=== PATIENT | male | born 1950 | race Caucasian/White ===

== ENCOUNTER 2018-12-10 15:39 | Inpatient (IN) | payer MEDICARE ==
[~2018-12-10] VITALS: Ht 175.3 cm; Wt 87.1 kg
[2018-12-10] VITALS (7 sets, daily range): BP systolic 95–142; BP diastolic 69–93
--- NOTE | 2018-12-10 15:39 | NUR ---
BIBA FROM [facility] FOR REFERAL FROM DR. MARK FOR ELEVATED BUN 85 AND CREATININE 5.04. PT NONVERBAL TRACHE/VENT PT PER EMS REPORT AND REPORT FROM AARON AT [facility]. RT AT BEDSIDE AND WAS PUT IN VENTILATOR. PT PERRL, BRISK 2MM. BLADDER DISTENTION NOTED. PT PLACED ON FULL STOCK SORTER. HOB UP. BED SIDE RAILS UP X2. ON BED LOW POSITION, LOCKED. ER TO EVALUATE PT. HX: HTN, CEREBELLAR AND BRAINSTEM CVA, SZ, CHRONIC RESPIRATORY FAILURE, TRACHE/VENT, PERCUTANEOUS GASTROSTOMY TUBE.
--- NOTE | 2018-12-10 15:39 | NUR ---
Patient BIBA ACLS, transferred to bed 8. Dr. Klein and RN evaluating patient at bedside.
--- NOTE | 2018-12-10 15:40 | NUR ---
IV INITIATED TO RAC WITH 20G, INTACT AND PATENT. OBTAINED BLOOD DRAW AND GIVEN TO LAB.
--- NOTE | 2018-12-10 15:40 | NUR ---
DR MOORE AT BEDSIDE FOR PT EVALUATION
--- NOTE | 2018-12-10 15:43 | NUR ---
PT BROUGHT IN EMS PLACED ON CARESCAPE ON DOCUMENTED SETTINGS, ALARMS ARE ON AND AUDIBLE, PTS TRACH IS SECURE PORTEX 8 ,BS CAIT , PT IN HF QUIET, BMV HOB VENT PLUGGED INTO RED OUTLET Addendum: 12/10/18 at 1606 by Patt Gallegos RT TRUCK LOADER AND UNLOADER COULD BE OBTAINED AT THIS TIME
[2018-12-10] MEDS ORDERED: KEP500L GT (15:57)
[2018-12-10] MEDS ORDERED: ONDA4TAB PO (15:58)
[2018-12-10] MEDS ORDERED: TIM.5OS OP (15:59)
[2018-12-10] MEDS ORDERED: LISI2.5T5 GT (16:00)
[2018-12-10] MEDS ORDERED: [UNRECOGNIZED DRUG - CODE] GT (16:02)
[2018-12-10] MEDS ORDERED: LORA2SOL69 IM (16:04)
--- NOTE | 2018-12-10 16:10 | NUR ---
LINK CATHETER INSERTED ORDERED USING STERILE TECHNIQUE. YELLOW URINE OUTPUT OF 1400 ML NOTED VIA GRAVITY. URINE SPECIMEN OBTAINED ORDERED. DR MOORE MADE AWARE.
[2018-12-10] MEDS ORDERED: DOXA2TAB1 GT (16:15)
[2018-12-10] MEDS ORDERED: ATOR20TA GT (16:15)
[2018-12-10] MEDS ORDERED: BISA-213 RC (16:15)
[2018-12-10] MEDS ORDERED: LANS15EC28 GT (16:15)
[2018-12-10] MEDS ORDERED: LACT-2 GT (16:15)
[2018-12-10] MEDS ORDERED: ASPI-1677 GT (16:15)
[2018-12-10] MEDS ORDERED: CYAN100T21 GT (16:15)
[2018-12-10] MEDS ORDERED: SENN-46 GT (16:15)
[2018-12-10 16:32] LABS: HEMATOCRIT 24.9 % (36-52); HEMOGLOBIN 8.3 g/dL (12.0-18.0); MEAN CORPUSCULAR HEMOGLOBIN 30 pg (27-31); MEAN CORPUSCULAR HGB CONC 33 g/dL (33-37); MEAN CORPUSCULAR VOLUME 89.5 fL (80-94); PLATELET COUNT (AUTO) 267 K/uL (140-450); RED BLOOD CELL COUNT(AUTO) 2.79 MIL/uL (4.20-6.10); RED CELL DISTRIBUTION WIDTH 13.8 % (11.6-13.7)
[2018-12-10 16:39] LABS: APPEARANCE,URINE CLEAR (CLEAR); BILIRUBIN,URINE NEGATIVE (NEGATIVE); BLOOD, URINE NEGATIVE (NEGATIVE); COLOR,URINE YELLOW (YELLOW); LEUKOCYTE ESTERASE ,URINE NEGATIVE (NEGATIVE); NITRITE, URINE NEGATIVE (NEGATIVE); PH,URINE 5.5 (5.0-9.0); UGLUCOSE NEGATIVE (NEGATIVE)
[2018-12-10 17:02] LABS: ALBUMIN 2.4 g/dL (3.4-5.0); CARBON DIOXIDE 26.5 mmol/L (21-32); POTASSIUM 5.5 mmol/L (3.5-5.1); TOTAL BILIRUBIN 0.4 mg/dL (0.0-1.0)
[2018-12-10 17:06] LABS: CREATININE 5.6 mg/dL (0.7-1.3)
[2018-12-10 17:10] LABS: LYMPHOCYTES % (MANUAL) 8 % (20-46)
[2018-12-10 17:11] LABS: BASOPHILS % (MANUAL) 0 % (0-2); EOSINOPHILS % (MANUAL) 8 % (0-4); MONOCYTES % (MANUAL) 6 % (5-12)
[2018-12-10] MEDS ORDERED: NACL 0.9% 1,000 ML IV ONE (17:15)
[2018-12-10] MEDS ORDERED: SODIUM BICARBONATE 8.4% PFS 50 MEQ/50 ML SYR IVP ONE (17:15)
[2018-12-10] MEDS ORDERED: INSULIN REGULAR, HUMAN 100 UNIT/ML VIAL SUBQ ONE (17:15)
[2018-12-10] MEDS ORDERED: DEXTROSE 50% 50 ML SYR IVP ONE (17:15)
[2018-12-10 17:21] LABS: PROTHROMBIN TIME 10.5 secs (10.8-13.4)
[2018-12-10] MEDS ORDERED: ONDANSETRON 4 MG/2 ML VIAL IM/IVP PRN (18:05)
[2018-12-10] MEDS ORDERED: DOCUSATE SODIUM 100 MG GELCAP PO PRN (18:05)
[2018-12-10] MEDS ORDERED: FAMOTIDINE 20 MG/2 ML VIAL IV PRN (18:05)
[2018-12-10] MEDS ORDERED: ACETAMINOPHEN 325 MG TAB PO PRN (18:05)
--- NOTE | 2018-12-10 18:10 | NUR ---
PT TAKEN TO CT VIA [place] WITH RT, RN AND FOAM CASTER
--- NOTE | 2018-12-10 18:25 | NUR ---
PT TAKEN BACK TO ROOM VIA [facility] WITH RN, RT AND CHILD DAY CARE PROVIDER
[2018-12-10] MEDS ORDERED: PATIROMER CALCIUM SORBITEX 8.4 GM PKT PO SCH (18:30)
[2018-12-10 18:41] LABS: ALBUMIN 2.4 g/dL (3.4-5.0); CHOL/HDL RATIO 2.7 (1-4.5); FREE T4 (FREE THYROXINE) 0.67 ng/dL (0.76-1.46); MAGNESIUM 3.3 mg/dL (1.8-2.4); PHOSPHORUS 7.6 mg/dL (2.5-4.9); THYROID STIMULATING HORMONE 0.83 uIU/mL (0.34-3.74)
--- NOTE | 2018-12-10 18:50 | NUR ---
Patient will be admitted to care of DR LONG. Admited to ICU. Will go to room 1. Belongings list completed. Report to FLACO LUJAN.
--- NOTE | 2018-12-10 18:54 | NUR ---
RECEIVED BEDSIDE REPORT FROM EDUCATION ASSOCIATE, ZAINAB, FOR CONTINUITY OF CARE. PATIENT DOES NOT OPEN EYES SPONTANEOUSLY, DOES NOT MAKE NEEDS KNOWN OR FOLLOW COMMANDS. PATIENT SKIN IS INTACT, WARM, DRY. HE HAS PERIPHERAL IV SITE TO RAC, 20 GAUGE, ASYMPTOMATIC AND PATENT. PATIENT IS TRACH TO VENT, BREATHING EVEN AND UNLABORED. PATIENT IS SR ON MONITOR, FLACC 0. HE HAS GTUBE IN PLACE. LINK CATHETER IN PLACE TO CLEAR YELLOW URINE. HOB IS 30 DEGREES ELEVATED, SIDE RAILS UP 3X, BED LOCKED IN LOW POSITION. NO SIGNS OF DISTRESS NOTED.
--- NOTE | 2018-12-10 19:10 | NUR ---
REPORT GIVEN BY DAY NURSE AT BEDSIDE. PT FAMILY PRESENT. AAOX0. WITHDRAWS TO LIGHT PAIN. TRACH TO VENT. FI02 28 VT 425-RR 12- FLOW 40 PEEP 5. AFEBRILE 97.0. VSS. RIGHT AC 20 GAUGE PATENT AND NO S/S OF INFECTION NOTED. GTUBE INTACT WITH NO LEAKING. GTUBE DRESSING INTACT. NPO EXCEPT MEDS. LUNG SOUNDS CLEAR BILATERALLY WITH SYMMETRICAL RESPIRATIONS THAT ARE UNLABORED. BOWEL SOUNDS PRESENT IN ALL [address] QUADRANTS. LINK CATHETER IN PLACE WITH LIGHT YELLOW COLORED URINE NOTED IN TUBING WITH SEDIMENT NOTED. PATIENT SKIN INTACT. SEIZURE SIDE RAILS IN PLACE. CALL LIGHT BY PATIENT. SAFETY PRECAUTIONS IN PLACE. BED LOCKED IN LOWEST POSITION. HOB 30 DEGREES. NO DISTRESS NOTED AT THIS TIME. WILL CONTINUE TO MONITOR.
--- NOTE | 2018-12-10 19:18 | NUR ---
ENDORSED CONTINUITY OF CARE TO QUANTITATIVE ASSOCIATE RNBRIAN. NO SIGNS OF DISTRESS NOTED.
--- NOTE | 2018-12-10 20:10 | NUR ---
RECEIVED PATIENT TRACH PORTEX 8 TO MECHANICAL VENTILATOR AT SETTINGS: AC/VC 425, 12, +5, 28%. VENT CHECK DONE. VENT ALARMS ON AND AUDIBLE. VENT PLUGGED INTO RED OUTLET. VENT WHEELS LOCKED. AMBU BAG AT [facility]. AIRWAY SECURE AND PATENT. SUCTIONED SMALL AMOUNT OF THICK, YELLOW SECRETIONS. NO ACUTE RESPIRATORY DISTRESS NOTED AT THIS TIME. WILL CONTINUE TO MONITOR.
[2018-12-10] MEDS ORDERED: LORazepam 2 MG/ML VIAL IVP PRN (20:45)
[2018-12-10] MEDS ORDERED: ACETAMINOPHEN 160 MG/5 ML UDC GT PRN (20:50)
[2018-12-10] MEDS ORDERED: BISACODYL 10 MG SUPP RC PRN (20:50)
[2018-12-10] MEDS ORDERED: PATIROMER CALCIUM SORBITEX 8.4 GM PKT GT SCH (21:00)
[2018-12-10] MEDS ORDERED: DOXAZOSIN 2 MG TAB PO SCH (21:00)
[2018-12-10] MEDS: PIPERACILLIN/TAZOBACTAM 2.25 GM in DEXTROSE 5% 50 ML IV SCH (21:00)
[2018-12-10] MEDS ORDERED: TAMSULOSIN 0.4 MG CAP GT SCH (21:00)
[2018-12-10] MEDS ORDERED: FLEPED RC (21:05)
[2018-12-10] MEDS ORDERED: DEXT1DRO5 OP (21:05)
--- NOTE | 2018-12-10 21:15 | NUR ---
LABS DRAWN AT THIS TIME. NO DISTRESS NOTED. VSS. WILL CONTINUE TO MONITOR
[2018-12-10] MEDS: LACTOBACILLUS RHAMNOSUS GG 1 EACH CAP GT SCH (21:19)
[2018-12-10] MEDS: levETIRAcetam 100 MG/ML ORASYR GT SCH (21:20)
[2018-12-10] MEDS: SENNA 8.6 MG TAB GT SCH (21:23)
[2018-12-10] MEDS ORDERED: ALBUTEROL SULFATE/IPRATROPIU 3 ML SOL IH PRN (21:25)
--- NOTE | 2018-12-10 21:30 | NUR ---
RT PRESENT AT THIS TIME. NO DISTRESS NOTED.
[2018-12-10] MEDS ORDERED: PIPERACILLIN/TAZOBACTAM 2.25 GM VIAL IV ONE (21:39)
[2018-12-10 21:40] LABS: ANION GAP 13.2 (8-16); CARBON DIOXIDE 29.6 mmol/L (21-32); POTASSIUM 4.8 mmol/L (3.5-5.1)
[2018-12-10 21:42] LABS: CREATININE 4.6 mg/dL (0.7-1.3)
--- NOTE | 2018-12-10 21:42 | NUR ---
VENT CHECK DONE, ALARMS ON AND AUDIBLE. FAMILY VISITING AT BEDSIDE. NO ACUTE RESPIRATORY DISTRESS NOTED AT THIS TIME. WILL CONTINUE TO MONITOR.
--- NOTE | 2018-12-10 21:46 | NUR ---
CALLED HOUSE SUP. TO NOTIFY THAT WE DO NOT HAVE MEDICATION PRESENT. DR. ANGEL CALLED STATES " OK TO WAIT UNTIL THE MORNING"
--- NOTE | 2018-12-10 23:18 | NUR ---
VENT CHECK DONE. PATIENT IN NO ACUTE DISTRESS AT THIS TIME. WILL CONTINUE TO MONITOR.
[2018-12-10] MEDS: NACL 0.9% 1,000 ML IV SCH (23:20)
[2018-12-11] VITALS (10 sets, daily range): BP systolic 92–134; BP diastolic 57–83
--- NOTE | 2018-12-11 01:51 | NUR ---
CALLED [facility] TO VERIFY PNA/FLU VACCINE; NO RECORD SHOWN HE RECEIVED VACCINATIONS.
--- NOTE | 2018-12-11 02:14 | NUR ---
PT LYING IN BED. NO DISTRESS NOTED. VSS. RESPIRATIONS NORMAL AND UNLABORED. WILL CONTINUE TO MONITOR.
--- NOTE | 2018-12-11 03:33 | NUR ---
VENT CHECK DONE, ALARMS ON AND AUDIBLE. NO DISTRESS NOTED AT THIS TIME. WILL CONTINUE TO MONITOR.
[2018-12-11] MEDS ORDERED: PIPERACILLIN/TAZOBACTAM 2.25 GM VIAL IV ONE (04:01)
--- NOTE | 2018-12-11 05:20 | NUR ---
TRANSPORTED PT WITH RN TO CT SCAN AND BACK TO ICU WITHOUT INCIDENT. BAGGED WITH 100% OXYGEN VIA TRACH.
--- NOTE | 2018-12-11 05:51 | NUR ---
VENT CHECK DONE. VENT ALARMS ON AND AUDIBLE. AMBU BAG AT HOB. SUCTIONED MODERATE AMOUNT OF SECRETIONS. ORALLY SUCTIONED BLOODY SECRETIONS. ORAL AIRWAY PLACED. TRACH CARE DONE WITHOUT INCIDENT. NO ACUTE RESPIRATORY DISTRESS NOTED AT THIS TIME. WILL CONTINUE TO MONITOR.
[2018-12-11] MEDS: PIPERACILLIN/TAZOBACTAM 2.25 GM in DEXTROSE 5% 50 ML IV SCH ×3 (05:55→20:16)
[2018-12-11] MEDS ORDERED: ALBUTEROL SULFATE/IPRATROPIU 3 ML SOL IH SCH (06:00)
--- NOTE | 2018-12-11 06:14 | NUR ---
REC'D PT ON CARESCAPE VENT SETTINGS AC12 VT 425 PEEP 5 FIO2 28% ALARMS ON AND AUDIBLE AND VENT IS PLUGGED INTO RED OUTLET AMBU BAG AT HOB, I\L TX GIVEN WITH DUONEB 3ML WITH NO ADVERSE REACTION POST TX B\S ARE RHONCHI BILATERALLY, SXN PT SMALL AMT OF YELLOW SECRETIONS, PT IS TRACH WITH PORTEX 8 AND SKIN INTEGRITY IS INTACT PT IS SLEEPING WITH NO SIGNS OF DISTRESS NOTED, AT 0710 PT MOVED FROM ICU ONE TO ROOM 124B BAGGED WITH 100% FIO2 AND PLACED BACK ON VENT WITH SAME SETTINGS
[2018-12-11 06:26] LABS: BASOPHILS % (AUTO) 0.7 % (0.0-2.0); EOSINOPHILS # (AUTO) 0.8 K/uL (0-0.4); EOSINOPHILS % (AUTO) 11.2 % (0.0-4.0); HEMATOCRIT 23.1 % (36-52); LYMPHOCYTES % (AUTO) 13.6 % (20.5-51.1); MEAN CORPUSCULAR HEMOGLOBIN 30 pg (27-31); MEAN CORPUSCULAR HGB CONC 34 g/dL (33-37); MONOCYTES # (AUTO) 0.7 K/uL (0.8-1.0); MONOCYTES % (AUTO) 9.9 % (1.7-9.3); NEUTROPHILS # (AUTO) 4.8 K/uL (1.8-7.7); NEUTROPHILS % (AUTO) 64.6 % (42.2-75.2); PLATELET COUNT (AUTO) 242 K/uL (140-450); RED BLOOD CELL COUNT(AUTO) 2.57 MIL/uL (4.20-6.10); RED CELL DISTRIBUTION WIDTH 13.7 % (11.6-13.7); WHITE BLOOD COUNT (AUTO) 7.5 K/uL (4.8-10.8)
--- NOTE | 2018-12-11 07:15 | NUR ---
RECEIVED REPORT FROM ICU NURSE BRIAN AT BEDSIDE, PT IS AAOX0. WITHDRAWS TO LIGHT PAIN. TRACH TO VENT. FIO2 28%, VT 425, RR 12, PEEP 5. ACCORDING TO BRIAN, PT BIT HIS TONGUE LAST NIGHT. PT HAS AIRWAY ADJUNCT IN MOUTH TO PREVENT BITING. MINIMAL BLOOD NOTED FROM PT'S SALIVA DROOLING. AFEBRILE 99.3. RIGHT AC 20 GAUGE RUNNING NS AT 100ML/HR, INTACT AND ASYMPTOMATIC. G TUBE SITE CLEAN, DRESSING IN PLACE. BMX1, BROWN LIQ STOOL. NPO EXCEPT MEDS. LUNG SOUNDS RHONCHI INSPIRATORY. BOWEL SOUNDS ACTIVE IN ALL 4 QUADRANTS. LINK CATHETER IN PLACE WITH LIGHT YELLOW URINE WITH SEDIMENTS. SKIN INTACT. SEIZURE PRECAUTIONS IN PLACE. CALL LIGHT WITHIN REACH. SAFETY PRECAUTIONS IN PLACE. BED LOCKED IN LOWEST POSITION. HOB 30 DEGREES. CONTINUE TO MONITOR. Addendum: 12/11/18 at 1832 by Sebastian Chisholm RN URINE IS YELLOW AND PINK TINGED. PT HAS ENLARGED PROSTATE.
[2018-12-11 07:43] LABS: HEMOGLOBIN 7.7 g/dL (12.0-18.0)
--- NOTE | 2018-12-11 07:45 | NUR ---
ORAL SUCTION DONE, MINIMAL BLOODY SALIVA NOTED. ORAL CARE DONE.
[2018-12-11] MEDS: levETIRAcetam 100 MG/ML ORASYR GT SCH ×2 (08:35→20:23)
[2018-12-11] MEDS: LACTOBACILLUS RHAMNOSUS GG 1 EACH CAP GT SCH ×2 (08:35→20:24)
--- NOTE | 2018-12-11 08:39 | NUR ---
PATIENT HAS BEEN SCREENED AND CATEGORIZED HIGH NUTRITION RISK. PATIENT WILL BE SEEN WITHIN 1-2 DAYS OF ADMISSION. 12/11/18-12/12/[address]
--- NOTE | 2018-12-11 09:00 | NUR ---
G TUBE RESIDUAL 0ML, ADMINISTERED SCHEDULED MEDS.
--- NOTE | 2018-12-11 09:15 | NUR ---
STARTED G TUBE FEEDING AT 10ML/HR, GOAL 60, WATER FLUSH 160ML Q6H
[2018-12-11] MEDS: FINASTERIDE 5 MG TAB PO SCH (09:35)
--- NOTE | 2018-12-11 09:45 | NUR ---
SKIN ASSESSMENT DONE FOR LOW MARISELA SCALE AT RISK, PRESSURE INJURY PREVENTION INTERVENTIONS IN PLACE. -TURN AND REPOSITION PATIENT Q 2H -ASSESS AND MONITOR SKIN CONDITION DURING POSITION CHANGE -OFFLOAD BILATERAL HEELS BY PLACING PILLOWS UNDER CALVES AT ALL TIMES, UNLESS OTHERWISE CONTRAINDICATED -PRESSURE REDISTRIBUTION BY PLACING PILLOWS AND OFFLOADING SACRALCOCCYX -KEEP SKIN CLEAN AND DRY AT ALL TIMES.
--- NOTE | 2018-12-11 11:33 | NUR ---
PT COUGHED OUT THE AIRWAY ADJUNCT. MADE RT YOON AWARE. SUCTIONED PT'S MOUTH. PT BREATHING WITHOUT ANY DISTRESS. O2 SAT 97%.
[2018-12-11] MEDS: NACL 0.9% 1,000 ML IV SCH (11:59)
[2018-12-11] MEDS: CALCIUM ACETATE 667 MG TAB PO SCH ×2 (11:59→16:46)
[2018-12-11] MEDS: TIMOLOL OP 0.5% 5 ML BTL OP SCH (12:00)
--- NOTE | 2018-12-11 12:15 | NUR ---
INCREASED FEEDING RATE TO 20ML/HR.
[2018-12-11] MEDS ORDERED: BISACODYL 10 MG SUPP RC PRN (12:28)
[2018-12-11 12:46] LABS: CREATININE 3.4 mg/dL (0.7-1.3)
[2018-12-11 13:07] LABS: ANION GAP 10.7 (8-16); CARBON DIOXIDE 32.1 mmol/L (21-32); POTASSIUM 4.8 mmol/L (3.5-5.1)
[2018-12-11] MEDS: ALBUTEROL SULFATE/IPRATROPIU 3 ML SOL IH SCH ×2 (13:08→19:28)
[2018-12-11] MEDS ORDERED: FAMOTIDINE 20 MG TAB PO SCH (13:11)
[2018-12-11 13:41] LABS: MAGNESIUM 2.8 mg/dL (1.8-2.4); PHOSPHORUS 5.8 mg/dL (2.5-4.9)
--- NOTE | 2018-12-11 14:15 | NUR ---
Air Quality Instrument Specialist Note: Per Brigette from [facility] , they are able to accept patient upon discharge. She stated patient is one of their manager intermediate patients and his health care decision maker is his son Jose A Livingston.
--- NOTE | 2018-12-11 15:28 | NUR ---
12/11/18 RD INITIAL ASSESSMENT COMPLETED PLEASE REFER TO NUTRITION ASSESSMENT UNDER CARE ACTIVITY FOR ESTIMATED NUTRITIONAL NEEDS. 1. DECREASE TUBE FEEDING RATE TO 40 ML/HR X 24 HOURS OF NEPRO W/CARBSTEADY -THIS WILL PROVIDE 960 ML, 1728 KCAL, AND 77.[address] TO FOLLOW-UP 2-3 DAYS, HIGH RISK LORNE CATHERINE, RD
--- NOTE | 2018-12-11 15:31 | NUR ---
G TUBE RESIDUAL 0ML, ADJUSTED FEEDING RATE TO 30ML/HR, H2O FLUSH 150ML Q6H
--- NOTE | 2018-12-11 16:20 | NUR ---
PT'S SON IS HERE VISITING PT.
[2018-12-11] MEDS: ONDANSETRON 4 MG/5 ML ORASYR GT SCH (16:47)
--- NOTE | 2018-12-11 19:20 | NUR ---
RECEIVED BEDSIDE REPORT FROM DAY RN. PT IS AAOX4 ON ROOM AIR. RESPIRATIONS ARE EQUAL AND UNLABORED. PT IS SITTING IN THE EDGE OF THE BED WATCHING TV. C/C ABNORMAL LABS PT RECEIVED BLOOD TRANS MORNING HGB 9.0. PT HAS AV SHUNT ON LEFT ARM SIGN ON THE DOOR WILL PLACE PINK ARM BAND. PT TO HAVE HD TOMORROW WILL OBTAIN CONSENT. IV ON RAC 20G AND R WRIST 22G BOTH SL. PT HAS DRESSING ON L FOOT C/D/I. PT WITH R BKA. PLAN OF CARE DISCUSSED WITH PT. CALL LIGHT IS WITHIN REACH. WILL ROUND FREQUENTLY. Addendum: 12/11/18 at 1942 by Miranda Ontiveros RN WRONG PATIENT.
--- NOTE | 2018-12-11 19:25 | NUR ---
RECEIVED BEDSIDE REPORT FROM DAY RN. PT IS APHASIC AND UNRESPONSIVE PER DAUGHTER BAHMAN HE HAS NOT OPEN HIS EYES TODAY. PT IS TRACH TO VENT. AC/VC FIO2 28%, VT 425, RR 12, FLOW 40 PEEP 5. IV ON RAC 20G INFUSING NS @ 80M/H. PT WITH G TUBE FEEDING: NEPRO AT 40ML/H GOAL H20 FLUSH IS 150ML Q6H. PT HAS PITTING +1 EDEMA BLE AND BUE. SCD ON. LINK CATH DRAINING LIGHT BLOOD TINGED URINE. SKIN IS INTACT. PLAN OF CARE DISCUSSED WITH DAUGHTER. SAFETY MEASURES ARE IN PLACE. WILL ROUND FREQUENTLY.
--- NOTE | 2018-12-11 19:28 | NUR ---
REC'D PT ON CARESCAPE VENT SETTINGS AC12 VT 425 PEEP 5 FIO2 28% ALARMS ON AND AUDIBLE AND VENT IS PLUGGED INTO RED OUTLET AMBU BAG AT HOB, SXN MODERATE AMT OF BROWN/BLOOD TINGED SECRETIONS FROM PT, PT IS TRACH'D WITH PORTEX 8 AND SKIN INTEGRITY IS INTACT PT IS SLEEPING WITH NO SIGNS OF DISTRESS NOTED. WILL CONTINUE TO MONITOR THE PATIENT
[2018-12-11] MEDS: TAMSULOSIN 0.4 MG CAP GT SCH (20:23)
[2018-12-11] MEDS: DOXAZOSIN 2 MG TAB PO SCH (20:24)
[2018-12-11] MEDS: SENNA 8.6 MG TAB GT SCH (20:24)
[2018-12-11] MEDS: POLYVINYL ALCOHOL 1.4% OP 15 ML SOL OP SCH (20:25)
--- NOTE | 2018-12-11 20:25 | NUR ---
VITAL SIGNS ARE WITHIN NORMAL LIMITS. DARYA MEDICATIONS CRUSHED AND GIVEN VIA G TUBE. RESIDUAL <10CC. PT TOLERATED WELL. NO S/S OF DISTRESS. SAFETY MEASURES ARE IN PLACE. HOB ELEVATED. TUBE FEEDING CONTINUED PER ORDERS. DAUGHTER AND SON IN LAW IS AT BEDSIDE. WILL CONTINUE TO ROUND FREQUENTLY.
--- NOTE | 2018-12-11 20:55 | NUR ---
DR ANGEL IN TO ANSWER THE PATIENT'S DAUGHTER QUESTIONS AND CONCERNS. WILL CONTINUE TO MONITOR.
--- NOTE | 2018-12-11 22:00 | NUR ---
ORAL CARE PROVIDED. PT CLEAN AND REPOSITION FOR COMFORT. HOB ELEVATED. PT TOLERATED WELL. ALL NEEDS MET AT THIS TIME. SAFETY MEASURES ARE IN PLACE. WILL CONTINUE TO MONITOR.
--- NOTE | 2018-12-11 23:20 | NUR ---
VITAL SIGNS ARE WITHIN NORMAL LIMITS. ALL SAFETY MEASURES ARE IN PLACE. WILL CONTINUE TO MONITOR.
[2018-12-12] VITALS: BP 114/78
--- NOTE | 2018-12-12 00:45 | NUR ---
SUCTION MODERATE AMOUNT OF BROWN/RED THICK SECRETION. PT TOLERATED WELL. CHEST RISE AND FALL. HOB ELEVATED. SAFETY MEASURES ARE IN PLACE. WILL CONTINUE TO MONITOR.
[2018-12-12 03:20] VITALS: BP 135/88
--- NOTE | 2018-12-12 03:24 | NUR ---
VITAL SIGNS ARE WITHIN NORMAL LIMITS. SUCTION MODERATE AMOUNT OF WHITE SECRETION FROM MOUTH. ALL NEEDS MET AT THIS TIME. WILL CONTINUE TO MONITOR.
[2018-12-12] MEDS: NACL 0.9% 1,000 ML IV SCH (03:58)
[2018-12-12] MEDS: PIPERACILLIN/TAZOBACTAM 2.25 GM in DEXTROSE 5% 50 ML IV SCH ×3 (04:00→20:27)
--- NOTE | 2018-12-12 06:03 | NUR ---
RT IS AT BEDSIDE. PT IN STABLE CONDITION. SAFETY MEASURES ARE IN PLACE. WILL CONTINUE TO MONITOR.
[2018-12-12 06:37] LABS: ANION GAP 9.1 (8-16); CARBON DIOXIDE 32.2 mmol/L (21-32); CREATININE 2.6 mg/dL (0.7-1.3); POTASSIUM 4.3 mmol/L (3.5-5.1)
[2018-12-12 06:41] LABS: MAGNESIUM 2.5 mg/dL (1.8-2.4); PHOSPHORUS 4.9 mg/dL (2.5-4.9)
[2018-12-12 06:44] LABS: HEMATOCRIT 21.6 % (36-52); HEMOGLOBIN 7.3 g/dL (12.0-18.0); MEAN CORPUSCULAR HEMOGLOBIN 31 pg (27-31); MEAN CORPUSCULAR HGB CONC 34 g/dL (33-37); MEAN CORPUSCULAR VOLUME 90.7 fL (80-94); PLATELET COUNT (AUTO) 246 K/uL (140-450); RED BLOOD CELL COUNT(AUTO) 2.38 MIL/uL (4.20-6.10); RED CELL DISTRIBUTION WIDTH 13.6 % (11.6-13.7); WHITE BLOOD COUNT (AUTO) 6.7 K/uL (4.8-10.8)
[2018-12-12] MEDS: ALBUTEROL SULFATE/IPRATROPIU 3 ML SOL IH SCH ×3 (07:08→19:31)
--- NOTE | 2018-12-12 07:27 | NUR ---
RECEIVED BEDSIDE REPORT FROM FLACO REHMAN. PT STABLE, SLEEPING, BUT EASILY AROUSABLE. NO SIGNS OF DISTRESS NOTED. PT TRACHE TO VENT, FI02 28%, FLOW AT 35, VT 425, PEEP 5, RR 12. NO REDNESS, SWELLING, OR INFLAMMATION NOTED ON IV SITE. CALL MALLORY WITHIN REACH. BED IN LOWEST POSITION, BED ALARM ON. SAFETY MEASURES IN PLACE. PLAN OF CARE REVIEWED.
--- NOTE | 2018-12-12 07:28 | NUR ---
GAVE BEDSIDE REPORT TO DAY RN. PT ENDORSED IN STABLE CONDITION.
--- NOTE | 2018-12-12 07:35 | NUR ---
CONTINUED TO MONITOR PT ON VENT WITH SETTINGS CHARTED SXN PT WITH MIN TO MOD AMT YELLOW SECS ALSO ORALLY BREATH SOUNDS PRESENT BILAT COARSE TRACH SITE SECURE VENT PLUGGED INTO RED OUTLET WILL CONTINUE TO MONITORE PT ON VENT
[2018-12-12 08:00] VITALS: BP 113/74
[2018-12-12 09:13] LABS: EOSINOPHILS % (MANUAL) 5 % (0-4); LYMPHOCYTES % (MANUAL) 19 % (20-46); MONOCYTES % (MANUAL) 6 % (5-12)
[2018-12-12] MEDS: CALCIUM ACETATE 667 MG TAB PO SCH (09:46)
[2018-12-12] MEDS: LACTOBACILLUS RHAMNOSUS GG 1 EACH CAP GT SCH ×2 (09:46→20:38)
[2018-12-12] MEDS: levETIRAcetam 100 MG/ML ORASYR GT SCH ×2 (09:47→20:39)
[2018-12-12] MEDS: TIMOLOL OP 0.5% 5 ML BTL OP SCH (09:48)
[2018-12-12] MEDS: FAMOTIDINE 20 MG TAB PO SCH (09:48)
[2018-12-12] MEDS: FINASTERIDE 5 MG TAB PO SCH (09:48)
[2018-12-12] MEDS: SODIUM PHOSPHATE 118 ML ENEM RC SCH (09:51)
--- NOTE | 2018-12-12 09:58 | NUR ---
RESIDUAL CHECKED, 30ML. ADMINISTERED ALL SCHEDULED MEDICATIONS, PT TOLERATED WELL. WILL CONTINUE TO MONITOR. FAMILY AT THE BEDSIDE.
--- NOTE | 2018-12-12 11:57 | NUR ---
PT REPOSITIONED, LINENS AND GOWN CHANGED.
[2018-12-12 12:00] VITALS: BP 142/93
--- NOTE | 2018-12-12 13:13 | NUR ---
ADMINISTERED SCHEDULED ZOSYN, PT TOLERATED WELL. NO SIGNS OF DISTRESS NOTED.
--- NOTE | 2018-12-12 14:44 | NUR ---
TUBE FEEDING CHANGED. ORAL CARE PROVIDED TO PATIENT. PT STABLE, NO SIGNS OF DISTRESS NOTED.
[2018-12-12 16:00] VITALS: BP 138/84
--- NOTE | 2018-12-12 16:15 | NUR ---
VITAL SIGNS TAKEN, PT STABLE. NO SIGNS OF DISTRESS NOTED.
--- NOTE | 2018-12-12 17:29 | NUR ---
continued to monitor pt on vent with settings as charted breath sounds present bilat coarse sxn pt with min to mod amt off white secs vent plugged into red outlet
[2018-12-12] MEDS: ONDANSETRON 4 MG/5 ML ORASYR GT SCH (17:42)
[2018-12-12] MEDS: ACETAMINOPHEN 650 MG/20.3 ML UDC GT PRN ×2 (17:43→23:06)
--- NOTE | 2018-12-12 17:47 | NUR ---
TEMP RECHECKED, 100.2. ADMINISTERED SCHEDULED ZOFRAN AND PRN TYLENOL FOR TEMP OF 100.2. PT TOLERATED WELL. FAMILY AT THE BEDSIDE.
--- NOTE | 2018-12-12 18:45 | NUR ---
TEMP RECHECKED, 100.1. WILL CONTINUE TO MONITOR PT.
--- NOTE | 2018-12-12 19:05 | NUR ---
ENDORSED PT TO LFACO VIDAL FOR CONTINUITY OF CARE. PT STABLE.
--- NOTE | 2018-12-12 19:10 | NUR ---
RECEIVED PT SLEEPING, OPEN EYES TO TOUCH, APHASIC, ON TRACH TO VENT WITH FF SETTINGS:FI02-28, TV-425, RATE-12,PEEP-5,FLOW RATE-35,SAT-95%, G-TUBE FEEDING AT 40ML/H, MAINTAIN HOB 30 DEGREE ELEVATED AT ALL TIMES, IVF INFUSING WELL, LINK CATH IN PLACE WITH STRAW COLORED URINE OUTPUT, PT BEDBOUND, WILL REPOSITION Q2H AND OFFLOAD PRESSURE AREAS, FAMILY MEMBERS AT BEDSIDE, QUESTIONS ANSWERED AND UPDATED ON PLAN OF CARE.
[2018-12-12 20:00] VITALS: BP 124/83
--- NOTE | 2018-12-12 20:00 | NUR ---
VITAL SIGNS TAKEN, FEBRILE WITH AXILLARY TEMP OF 102, COOLING MEASURES STARTED, DR ANGEL MADE AWARE OF ELEVATED TEMP AND TYLENOL PRN IS NOT DUE YET, WILL CHECK PT, MONITORED CLOSELY.
[2018-12-12] MEDS: DOXAZOSIN 2 MG TAB PO SCH (20:38)
[2018-12-12] MEDS: POLYVINYL ALCOHOL 1.4% OP 15 ML SOL OP SCH (20:39)
[2018-12-12] MEDS: SENNA 8.6 MG TAB GT SCH (20:39)
[2018-12-12] MEDS: TAMSULOSIN 0.4 MG CAP GT SCH (20:39)
--- NOTE | 2018-12-12 20:40 | NUR ---
10 ML G-TUBE RESIDUAL NOTED, DUE MEDS ADMINISTERED, SUCTION SECRETION PRN, ALL NEEDS ANTICIPATED.
[2018-12-12] MEDS ORDERED: KETOROLAC 15 MG/ML VIAL IVP SCH (21:00)
--- NOTE | 2018-12-12 23:06 | NUR ---
TEMP RECHECKED, 101.8 AXILLARY, TYLENOL 650MG GIVEN VIA G-TUBE, CONTINUE COOLING MEASURES.
[2018-12-13] VITALS: BP 113/78
--- NOTE | 2018-12-13 01:19 | NUR ---
RECHECKED AXILLARY TEMP OF 100.8, NO DISTRESS NOTED, CONTINUE COOLING MEASURES.
[2018-12-13 04:00] VITALS: BP 118/76
--- NOTE | 2018-12-13 04:00 | NUR ---
PT SLEEPING, OPEN EYES TO TOUCH, VITAL SIGNS TAKE, Addendum: 12/13/18 at 0523 by Tariq Pérez RN VITAL SIGNS TAKEN, AXILLARY TEMP-99.8, CONTINUE COOLING MEASURES, CONTINUE TO REPOSITION Q2H AND OFFLOAD PRESSURE AREAS, MONITORED CLOSELY.
[2018-12-13] MEDS: NACL 0.9% 1,000 ML IV SCH (04:54)
[2018-12-13] MEDS: PIPERACILLIN/TAZOBACTAM 2.25 GM in DEXTROSE 5% 50 ML IV SCH ×3 (04:58→21:38)
--- NOTE | 2018-12-13 05:20 | NUR ---
LINK CATHETER CARE DONE, URINE WITH BROWNISH SEDIMENTS, WITH SCROTAL EDEMA NOTED, BM WITH LOOSE GREENISH BLACK STOOL, CLEANED AND REPOSITIONED, MONITORED CLOSELY.
[2018-12-13] MEDS: ACETAMINOPHEN 650 MG/20.3 ML UDC GT PRN (06:26)
--- NOTE | 2018-12-13 06:26 | NUR ---
AXILLARY TEMP OF 100.7, TYLENOL LIQUID GIVEN THRU G-TUBE, COOLING MEASURES CONTINUED, NO DISTRESS NOTED, MONITORED CLOSELY.
[2018-12-13 06:39] LABS: CARBON DIOXIDE 30.4 mmol/L (21-32); CREATININE 2.2 mg/dL (0.7-1.3); POTASSIUM 4.4 mmol/L (3.5-5.1)
[2018-12-13 06:57] LABS: MAGNESIUM 2.2 mg/dL (1.8-2.4); PHOSPHORUS 5.2 mg/dL (2.5-4.9)
[2018-12-13 07:14] LABS: BASOPHILS % (AUTO) 0.6 % (0.0-2.0); EOSINOPHILS # (AUTO) 0.4 K/uL (0-0.4); EOSINOPHILS % (AUTO) 6.9 % (0.0-4.0); LYMPHOCYTES # (AUTO) 1.3 K/uL (2.0-11.5); LYMPHOCYTES % (AUTO) 23.8 % (20.5-51.1); MEAN CORPUSCULAR HEMOGLOBIN 30 pg (27-31); MEAN CORPUSCULAR HGB CONC 33 g/dL (33-37); MONOCYTES # (AUTO) 0.7 K/uL (0.8-1.0); MONOCYTES % (AUTO) 12.1 % (1.7-9.3); NEUTROPHILS # (AUTO) 3.1 K/uL (1.8-7.7); NEUTROPHILS % (AUTO) 56.6 % (42.2-75.2); PLATELET COUNT (AUTO) 230 K/uL (140-450); RED CELL DISTRIBUTION WIDTH 13.5 % (11.6-13.7); WHITE BLOOD COUNT (AUTO) 5.5 K/uL (4.8-10.8)
[2018-12-13] MEDS: ALBUTEROL SULFATE/IPRATROPIU 3 ML SOL IH SCH ×3 (07:15→19:37)
--- NOTE | 2018-12-13 07:17 | NUR ---
RECIVED PT ON VENT WITH SETTINGS CHARTED BREATH SOUNDS PRESENT BILAT DIMINISHED SXN PT WITH MIN TO MOD AMT SECS SXN ORALLY WELL AMBU BAG AT BEDSIDE VENT PLUGGED INTO RED OUTLET WILL CONTINUE TO MONITOR PT ON VENT
--- NOTE | 2018-12-13 07:19 | NUR ---
RECEIVED BEDSIDE REPORT FROM FLACO VIDAL. PT STABLE, SLEEPING, BUT EASILY AROUSABLE. NO SIGNS OF DISTRESS NOTED. PT TRACHE TO VENT, FI02 28%, FLOW AT 35, VT 425, PEEP 5, RR 13. NO REDNESS, SWELLING, OR INFLAMMATION NOTED ON IV SITE. CALL MALLORY WITHIN REACH. BED IN LOWEST POSITION, BED ALARM ON. SAFETY MEASURES IN PLACE. PLAN OF CARE REVIEWED.
--- NOTE | 2018-12-13 07:20 | NUR ---
PT SLEEPING, NO SIGNS OF DISTRESS, REPORT GIVEN TO FLACO RIVERA FOR CONTINUITY OF CARE.
[2018-12-13 08:00] VITALS: BP 123/79
[2018-12-13 08:06] LABS: HEMOGLOBIN 6.9 g/dL (12.0-18.0)
--- NOTE | 2018-12-13 08:10 | NUR ---
MADE DR WOODSON AWARE OF PT'S TEMPERATURE OF 101.1. COOLING MEASURES ARE IN PLACE AND PT WAS ALREADY MEDICATED BY PM RN. DR WOODSON WILL PUT IN NEW ORDERS. WILL CONTINUE TO MONITOR.
[2018-12-13] MEDS: FINASTERIDE 5 MG TAB PO SCH (09:33)
[2018-12-13] MEDS: levETIRAcetam 100 MG/ML ORASYR GT SCH ×2 (09:33→21:36)
[2018-12-13] MEDS: LACTOBACILLUS RHAMNOSUS GG 1 EACH CAP GT SCH (09:34)
[2018-12-13] MEDS: FAMOTIDINE 20 MG TAB PO SCH (09:34)
[2018-12-13] MEDS: TIMOLOL OP 0.5% 5 ML BTL OP SCH (09:35)
--- NOTE | 2018-12-13 09:55 | NUR ---
NO RESIDUAL NOTED FROM G-TUBE. ADMINISTERED ALL SCHEDULED MEDICATIONS, PT TOLERATED WELL. FAMILY AT THE BEDSIDE. RECEIVED CONSENT FROM PT'S SISTER SANDI FOR BLOOD TRANSFUSION. SPOKE WITH PT'S STEP SON FARIBA REGARDING PT'S STATUS AND PLAN OF CARE. TEMP RECHECKED, 99.8. WILL CONTINUE TO MONITOR.
--- NOTE | 2018-12-13 11:36 | NUR ---
PT REPOSITIONED, LINENS AND GOWN CHANGED. PT STABLE.
[2018-12-13 12:00] VITALS: BP 133/86
--- NOTE | 2018-12-13 12:54 | NUR ---
ADMINISTERED SCHEDULED ZOSYN, PT TOLERATED WELL. NO SIGNS OF DISTRESS NOTED.
--- NOTE | 2018-12-13 14:25 | NUR ---
PT REPOSITIONED, CHUCKS CHANGED.
--- NOTE | 2018-12-13 15:21 | NUR ---
12/13/18 RD FOLLOW UP COMPLETED PLEASE REFER TO NUTRITION ASSESSMENT UNDER CARE ACTIVITY FOR ESTIMATED NUTRITIONAL NEEDS. 1. DECREASE FREE WATER FLUSH TO 120 ML Q6H 2. CONTINUE NEPRO W/CARB STEADY AT 40 ML/HR X 24 HOURS. -THIS WILL PROVIDE 960 ML, 1728 KCAL, AND 77.[address] TO FOLLOW-UP 2-3 DAYS, HIGH RISK LORNE CATHERINE, RD
--- NOTE | 2018-12-13 15:58 | NUR ---
Slicer Machine Operator Note: Per Naya from [facility] , they will refer patient to a urologist, Vice President [employer] Lucy sanchez aware.
[2018-12-13 16:00] VITALS: BP 154/92
[2018-12-13] MEDS: ONDANSETRON 4 MG/5 ML ORASYR GT SCH (16:21)
[2018-12-13] MEDS: CALCIUM ACETATE 667 MG TAB PO SCH (16:22)
--- NOTE | 2018-12-13 16:27 | NUR ---
ADMINISTERED SCHEDULED MEDICATIONS, PT TOLERATED WELL. NO SIGNS OF DISTRESS NOTED.
--- NOTE | 2018-12-13 17:30 | NUR ---
CONTINUED TO MONITORPT ON VENT WITH SETTINGS CHARTED BREATH SOUNDS PRESENT BILAT COARSE SXN PT WITH MIN TO MOD AMT OFF WHITE SECS TRACH SITE SECURE AMBU BAG AT BEDSIDE VENT PLUGGED INTO RED OUTLET
--- NOTE | 2018-12-13 17:51 | NUR ---
LATE ENTRY: [id number] AND FOR TRANSPORT [id number] AND CAN USE [facility].
--- NOTE | 2018-12-13 18:11 | NUR ---
PT STABLE. VITAL SIGNS TAKEN FOR PRE- BLOOD TRANSFUSION.
--- NOTE | 2018-12-13 18:26 | NUR ---
BLOOD WAS VERIFIED WITH FLACO LOUIS. BLOOD TRANSFUSION STARTED. PT STABLE. WILL CONTINUE TO MONITOR.
--- NOTE | 2018-12-13 18:41 | NUR ---
VITAL SIGNS TAKEN, PT STABLE. NO SIGNS OF BLOOD TRANSFUSION REACTION NOTED. PT TOLERATED WELL. WILL CONTINUE TO MONITOR.
--- NOTE | 2018-12-13 19:25 | NUR ---
ENDORSED PT TO RN COURTNEY FOR CONTINUITY OF CARE. PT STABLE.
--- NOTE | 2018-12-13 19:30 | NUR ---
RECEIVED FROM AM RN IN BED . SLEEPING. PT. IMMOBILE .WITH BLOOD TRANSFUSION ON GOING. NO NOTED ADVERSE REACTIONS. VITAL SIGNS WITH IN NORMAL LIMITS. LINK CATHETER IN PLACE AND DRAINING WITH SLIGHTLY REDDISH IN COLOR URINE. SON AT BEDSIDE AND NO COMPLAINTS DONE. TRACH TO VENT WITH FI02 AT 28 % . 02 SAT 100 %. GT FEEDING WITH NEPHRO AT 40 ML/H AND WATER AT 150 ML / 6 HOURS. NEEDS WILL BE ANTICIPATED AND WILL BE MET. WILL BE TURNED Q 2H. PILLOW SUPPORT TO PRESSURE AREAS IN PLACE. TELEMETRY MONITORING.
[2018-12-13 20:00] VITALS: BP 134/84
--- NOTE | 2018-12-13 21:27 | NUR ---
BLOOD TRANSFUSION OF 1 UNIT DONE. NO NOTED ADVERSE REACTIONS. NEEDS ANTICIPATED AND WILL BE MET. TOTAL CARE. PT. SUCTIONED TO A CREAMY COLORED MUCUS FROM MOUTH. TURNED Q 2H. TELEMETRY MONITORING.
[2018-12-13] MEDS: TAMSULOSIN 0.4 MG CAP GT SCH (21:37)
[2018-12-13] MEDS: SENNA 8.6 MG TAB GT SCH (21:37)
[2018-12-13] MEDS: DOXAZOSIN 2 MG TAB PO SCH (21:37)
[2018-12-13] MEDS: POLYVINYL ALCOHOL 1.4% OP 15 ML SOL OP SCH (21:39)
--- NOTE | 2018-12-13 23:30 | NUR ---
PT. CHECKED. NO RESTLESSNESS . TRACH TO VENT WITH 02 SAT OF 99%. RESPIRATORY THERAPIST CHECKS PT. FREQUENTLY. NO NOTED RESIDUAL AT THIS TIME. HOB UP 30 DEGREES FOR ASPIRATION PRECAUTIONS. PT. LETHARGIC . FAMILY/SON AND RESIDENT MD AWARE.
[2018-12-14 00:53] VITALS: BP 144/90
[2018-12-14 01:05] VITALS: BP 144/90
--- NOTE | 2018-12-14 01:19 | NUR ---
RESPIRATORY IN HERE TO SUCTION PT. CHECKED BY RT FREQUENTLY. SUCTIONED BY MOUTH AT THIS TIME BY ME RT WITH SLIGHT MUCUS FROM A LITTLE COUGH. KEPT CLEAN AND DRY. TURNED Q2 H WITH PILLOW SUPPORT TO PRESSURE AREAS. NEEDS ANTICIPATED AND WILL BE MET. PT. IMMOBILE. APHASIC .
--- NOTE | 2018-12-14 02:35 | NUR ---
TURNED TO SIDES Q 2H BY DISPATCHER RADIOACTIVE WASTE DISPOSAL AND ME. CALL LIGHT WITH IN REACH. PILLOW SUPPORT TO PRESSURE AREAS. NEEDS ANTICIPATED AND WILL BE MET. TOTAL CARE. RESIDENT MD IN HERE AND SHOWED HIM THAT URINE OF PT. IS STILL THE SAME SINCE I CAM IN FOR CHANGE OF SHIFT. "IT IS OK LONG WE HAVE NO BLOOD THINNER RIGHT NOW . IT WILL RESOLVE EVENTUALLY" RE-CHECKED EMAR AND NO BLOOD THINNER IN IT. SUCTIONED PT. PRN.
[2018-12-14 04:02] VITALS: BP 132/78
[2018-12-14] MEDS: PIPERACILLIN/TAZOBACTAM 2.25 GM in DEXTROSE 5% 50 ML IV SCH ×2 (04:08→12:07)
[2018-12-14] MEDS: NACL 0.9% 1,000 ML IV SCH (04:08)
--- NOTE | 2018-12-14 04:41 | NUR ---
PERSONAL AM HYGIENE RENDERED BY SWIMMING POOL SERVICE TECHNICIAN AND ME. TOTAL CARE. APHASIC. PT. LETHARGIC . TURNED TO SIDES Q 2H WITH PILLOW SUPPORT TO PRESSURE AREAS. HOB UP 30 DEGREES FOR ASPIRATION PRECAUTIONS. BED ALARM ON. TELEMETRY MONITORING. NO RESIDUALS FROM GT FEEDING.
[2018-12-14] MEDS: ALBUTEROL SULFATE/IPRATROPIU 3 ML SOL IH SCH (06:33)
--- NOTE | 2018-12-14 06:33 | NUR ---
REC'D PT ON CARESCAPE VENT SETTINGS AC12 VT 425 PEEP 5 FIO2 30% ALARMS ON AND AUDIBLE AND AMBU BAG AT SIDE OF VENT AND VENT IS PLUGGED INTO RED OUTLET, NO HHN GIVEN PT SLEEPING WITH NO SIGNS OF DISTRESS NOTED AT THIS TIME, B\S ARE CLEAR BILATERALLY SNX PT SMALL AMT OF THICK YELLOW SECRETIONS, PT IS TRACH WITH PORTEX 8 AND SKIN INTEGRITY IS INTACT
[2018-12-14 07:22] LABS: HEMATOCRIT 24.5 % (36-52); MEAN CORPUSCULAR HEMOGLOBIN 30 pg (27-31); MEAN CORPUSCULAR HGB CONC 33 g/dL (33-37); MEAN CORPUSCULAR VOLUME 90.5 fL (80-94); PLATELET COUNT (AUTO) 218 K/uL (140-450); RED CELL DISTRIBUTION WIDTH 13.5 % (11.6-13.7); WHITE BLOOD COUNT (AUTO) 7.1 K/uL (4.8-10.8)
[2018-12-14 07:23] LABS: ANION GAP 8.7 (8-16); CARBON DIOXIDE 31.4 mmol/L (21-32); CREATININE 1.7 mg/dL (0.7-1.3); POTASSIUM 4.1 mmol/L (3.5-5.1)
[2018-12-14 07:28] LABS: MAGNESIUM 1.9 mg/dL (1.8-2.4); PHOSPHORUS 4.3 mg/dL (2.5-4.9)
--- NOTE | 2018-12-14 07:38 | NUR ---
ENDORSED TO THE AM RN FOR CONTINUITY OF CARE. RESIDENT MD RUSSELL SEEN PT. TOTAL CARE. NEEDS ANTICIPATED AND MET. NO N/V THIS SHIFT.
--- NOTE | 2018-12-14 07:39 | NUR ---
REPORT RECEIVED FROM MATH PROFESSOR NURSE, POC REVIEWED, PT RESTING QUIETLY, RESP EVEN UNLABORED, TRACH TO VENT AT 28% FIOS, PT ON CARDIAC/PULSE OX MONITOR, GT FEEDING AT 40ML/HR, LINK CATH DRAINING WELL, IVF INFUSING, SITE WNL, ALL MONITORS FUNCTIONING, SAFETY MEASURES IN PLACE, NO IMMEDIATE NEEDS AT THIS TIME, WILL CONTINUE TO MONITOR
--- NOTE | 2018-12-14 07:55 | NUR ---
DR RUSSELL AT BEDSIDE.
[2018-12-14 08:00] VITALS: BP_SYST 143; BP_SYST 147; BP_DIAS 88; BP_DIAS 94
[2018-12-14] MEDS: levETIRAcetam 100 MG/ML ORASYR GT SCH (08:22)
[2018-12-14] MEDS: FINASTERIDE 5 MG TAB PO SCH (08:22)
[2018-12-14] MEDS: FAMOTIDINE 20 MG TAB PO SCH (08:23)
[2018-12-14] MEDS: TIMOLOL OP 0.5% 5 ML BTL OP SCH (08:23)
[2018-12-14] MEDS: CALCIUM ACETATE 667 MG TAB PO SCH ×2 (08:23→12:30)
[2018-12-14 08:32] LABS: HEMOGLOBIN 8.1 g/dL (12.0-18.0)
[2018-12-14] MEDS ORDERED: LACTOBACILLUS RHAMNOSUS GG 1 EACH CAP GT SCH (09:00)
[2018-12-14] MEDS ORDERED: PIPE1PDS26 IV (09:35)
[2018-12-14] MEDS: SODIUM PHOSPHATE 118 ML ENEM RC SCH (09:49)
[2018-12-14 10:06] LABS: EOSINOPHILS % (MANUAL) 8 % (0-4); LYMPHOCYTES % (MANUAL) 21 % (20-46); MONOCYTES % (MANUAL) 9 % (5-12)
--- NOTE | 2018-12-14 10:06 | NUR ---
CALLED [facility] SPOKE WITH MARTY PT IS ACCEPTED AND CAN GO TO ROOM 2B # TO GIVE REPORT [phone] ARRANGED TRANSPORT WITH [facility] DIPPING MACHINE OPERATOR TIME 1PM NOTIFIED RAJAN WALLER.
--- NOTE | 2018-12-14 10:15 | NUR ---
WITH FOOD PROCESSING CHEMIST, BED BATH GIVEN, PRIECARE DONE, GOWN CHANGED, LINEN CHANGED, POSITION CHANGED, PT KRISTAN WELL, LARGE WHITE SECRETION FROM MOUTH AND NOSE SUCTIONED, PT KRISTAN WELL.
--- NOTE | 2018-12-14 10:35 | NUR ---
CALLED PT'S SON FARIBA FRANCO [phone], INFORMED HIM OF DC BACK TO [facility] TODAY AT 1PM. FARIBA IN AGREEMENT WITH PLAN.
--- NOTE | 2018-12-14 10:59 | NUR ---
REPORT CALLED TO [facility] [place], [place], . AWAITING TRANSPORT AT 1PM.
--- NOTE | 2018-12-14 11:08 | NUR ---
DR RUSSELL AWARE OF BLOOD TINGED URINE IN LINK CATH, NO NEW ORDERS, ZOSYN DOSE CONFIRMED WITH DR RUSSELL, PT WILL TAKE 3.375G Q8H AFTER DC FOR 4 DAYS.
[2018-12-14 12:00] VITALS: BP 148/85
--- NOTE | 2018-12-14 12:38 | NUR ---
PT RESTING QUIETLY, NO ACUTE DISTRESS NOTED, PT'S SISTER AT BEDSIDE, WILL CONTINUE TO MONITOR
--- NOTE | 2018-12-14 13:20 | NUR ---
[facility] HERE TO RECYCLE WORKER PT, REPORT GIVEN TO RT, MEDICAL RECORD PACKET GIVEN, GT FLUSHED AND CLAMPED, IV FLUSHED AND CLAMPED, LINK BAG EMPTIED, DRAINING WELL, PATIENT DC TO [facility] BED 2B, VIA [facility].
[2018-12-14 15:09] LABS: FOLIC ACID > 20.00 ng/mL (>3.0)
[2018-12-14 17:26] LABS: FERRITIN 589 ng/mL (30 - 400); TRANSFERRIN 154 mg/dL (200 - 370)
== END 2018-12-14 13:20 | DRG 208 ==
LOC: MED 15:39 → MIC 18:05 → MTU 12-11 07:30
PROVIDERS: ADMIT General Practice; ATTEND General Practice
PROC: 5A1945Z Respiratory Ventilation, 24-96 Consecutive Hours (ICD-10-PCS; 2018-12-10)
PROC: 30233N1 Transfusion of Nonautologous Red Blood Cells into Peripheral Vein, Percutaneous Approach (ICD-10-PCS; principal; 2018-12-13)
DX: J69.0 Pneumonitis due to inhalation of food and vomit (principal); G93.41 Metabolic encephalopathy; N17.0 Acute kidney failure with tubular necrosis; E43 Unspecified severe protein-calorie malnutrition; J96.20 Acute and chronic respiratory failure, unspecified whether with hypoxia or hypercapnia; E87.1 Hypo-osmolality and hyponatremia; G93.1 Anoxic brain damage, not elsewhere classified; N13.8 Other obstructive and reflux uropathy; N13.30 Unspecified hydronephrosis; J90 Pleural effusion, not elsewhere classified; E87.3 Alkalosis; Z99.11 Dependence on respirator [ventilator] status; D63.8 Anemia in other chronic diseases classified elsewhere; E83.39 Other disorders of phosphorus metabolism; H40.9 Unspecified glaucoma; I10 Essential (primary) hypertension; N40.1 Benign prostatic hyperplasia with lower urinary tract symptoms; R13.10 Dysphagia, unspecified; R56.9 Unspecified convulsions; Y95 Nosocomial condition; Z66 Do not resuscitate; E87.5 Hyperkalemia; E87.8 Other disorders of electrolyte and fluid balance, not elsewhere classified; I25.10 Atherosclerotic heart disease of native coronary artery without angina pectoris; E83.41 Hypermagnesemia; E02 Subclinical iodine-deficiency hypothyroidism; J32.4 Chronic pansinusitis; Z86.73 Personal history of transient ischemic attack (TIA), and cerebral infarction without residual deficits; Z93.0 Tracheostomy status; Z79.82 Long term (current) use of aspirin; Z79.899 Other long term (current) drug therapy; Z93.1 Gastrostomy status; Z68.28 Body mass index [BMI] 28.0-28.9, adult
CPT/HCPCS: 36415; 36600; 51702; 70450; 71045; 71046; 76604; 80048; 80053; 81003; 82040; 82140; 82150; 82553; 82607; 82728; 82746; 82803; 82948; 83036; 83540; 83605; 83690; 83735; 83880; 84100; 84439; 84443; 84484; 84550; 85025; 85045; 85610; 85730; 86886; 86900; 86901; 86920; 87040; 87070; 87081; 87086; 87186; 87205; 89220; 94003; 94640; 96361; 96372; 96374; 96375; 99291; J1644; J1815; J1885; J2543; J7030; J7060; J7620; P9016; Q0092; Q0162

== ENCOUNTER 2019-05-07 18:42 | Inpatient (IN) | payer MEDICARE, MEDICAID ==
[~2019-05-07] VITALS: Ht 167.6 cm; Wt 88.5 kg
[~2019-05-07 18:42] MED LIST: ASPI-1884 GT; ATOR20TA GT; BISA-213 RC; CYAN100T21 GT; DEXT1DRO5 OP; DOXA2TAB1 GT; FLEPED RC; KEP500L GT; LACT-2 GT; LANS15EC28 GT; LISI2.5T5 GT; LORA2SOL69 IM; ONDA4TAB PO; PIPE1PDS26 IV; SENN-46 GT; TIM.5OS OP; [UNRECOGNIZED DRUG - CODE] GT
--- NOTE | 2019-05-07 18:42 | NUR ---
[facility] FIRE-[id number] AND [facility]-127 TO BED 7.
--- NOTE | 2019-05-07 18:46 | NUR ---
PT GIVEN 10MG ATROPINE, LT IO
[2019-05-07 18:48] VITALS: BP 134/94
--- NOTE | 2019-05-07 18:53 | NUR ---
PT GIVEN 10 MG ATROPINE LT IO BY RACHELE, RN
--- NOTE | 2019-05-07 18:56 | NUR ---
68 Y/O BIBA FROM [facility]. PT LOW HEART RATE X1 DAY. PT ON VENT, FEEDING TUB, URINARY CATHETER. PT DOES NOT RESPOND TO COMMANDS, RESPONDS TO PAIN. CAREGIVER STATES THIS IS PT NORMAL BASELINE, EXCEPT FOR LOW HEART RATE. DNR NKA
[2019-05-07 19:00] VITALS: BP 135/92
--- NOTE | 2019-05-07 19:26 | NUR ---
XRAY AT BEDSIDE.
--- NOTE | 2019-05-07 19:27 | NUR ---
EKG PERFORMED AT BEDSIDE
[2019-05-07] MEDS ORDERED: ATROPINE 1 MG/10 ML SYR IVP ONE ×2 (19:35)
[2019-05-07 20:24] LABS: BASOPHILS % (AUTO) 0.3 % (0.0-2.0); EOSINOPHILS # (AUTO) 0.2 K/uL (0-0.4); EOSINOPHILS % (AUTO) 5.1 % (0.0-4.0); HEMATOCRIT 29.8 % (36-52); HEMOGLOBIN 9.5 g/dL (12.0-18.0); LYMPHOCYTES # (AUTO) 0.7 K/uL (2.0-11.5); LYMPHOCYTES % (AUTO) 21.2 % (20.5-51.1); MEAN CORPUSCULAR HEMOGLOBIN 30 pg (27-31); MEAN CORPUSCULAR HGB CONC 32 g/dL (33-37); MEAN CORPUSCULAR VOLUME 92.4 fL (80-94); MONOCYTES # (AUTO) 0.2 K/uL (0.8-1.0); MONOCYTES % (AUTO) 7.4 % (1.7-9.3); NEUTROPHILS # (AUTO) 2.2 K/uL (1.8-7.7); PLATELET COUNT (AUTO) 116 K/uL (140-450); RED BLOOD CELL COUNT(AUTO) 3.23 MIL/uL (4.20-6.10); RED CELL DISTRIBUTION WIDTH 16.2 % (11.6-13.7); WHITE BLOOD COUNT (AUTO) 3.3 K/uL (4.8-10.8)
[2019-05-07 20:44] LABS: APPEARANCE,URINE HAZY (CLEAR); BILIRUBIN,URINE NEGATIVE (NEGATIVE); BLOOD, URINE 1+ (NEGATIVE); COLOR,URINE YELLOW (YELLOW); LEUKOCYTE ESTERASE ,URINE 3+ (NEGATIVE); NITRITE, URINE NEGATIVE (NEGATIVE); PH,URINE 8.5 (5.0-9.0); UGLUCOSE NEGATIVE (NEGATIVE)
[2019-05-07 20:52] LABS: ANION GAP 5.9 (8-16); CARBON DIOXIDE 33.8 mmol/L (21-32); CREATININE 0.7 mg/dL (0.7-1.3); POTASSIUM 3.7 mmol/L (3.5-5.1); TOTAL BILIRUBIN 0.2 mg/dL (0.0-1.0)
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
[2019-05-07 21:01] LABS: CALCIUM OXALATE CRYSTALS,UR 0-10 /HPF (None Seen); HYALINE CASTS, URINE 0-10 /LPF (None Seen); RBC,URINE 0-5 /HPF (0-5)
[2019-05-07 21:16] VITALS: BP 128/94
[2019-05-07] MEDS ORDERED: AMLO5TAB PO (21:30)
[2019-05-07] MEDS ORDERED: FERR75LI22 GT (21:30)
[2019-05-07] MEDS ORDERED: ASCO500T45 GT (21:30)
[2019-05-07] MEDS ORDERED: DOCU250S72 GT (21:30)
[2019-05-07] MEDS ORDERED: MULT-153 GT (21:30)
[2019-05-07] MEDS ORDERED: HYDROcodone/APAP 7.5/325 MG 1 TAB PO PRN (22:05)
[2019-05-07] MEDS ORDERED: ONDANSETRON 4 MG/2 ML VIAL IVP PRN (22:05)
[2019-05-07] MEDS ORDERED: ACETAMINOPHEN 325 MG TAB PO PRN (22:05)
[2019-05-07 22:32] LABS: MAGNESIUM 2.3 mg/dL (1.8-2.4)
--- NOTE | 2019-05-07 22:40 | NUR ---
Patient will be admitted to care of DR LONG . Admited to ICU BED 7. Belongings list completed. Report to FLACO SNEED .
[2019-05-07 22:46] LABS: PROTHROMBIN TIME 9.9 secs (10.8-13.4)
[2019-05-07] MEDS: NACL 0.9% 1,000 ML IV SCH (22:50)
--- NOTE | 2019-05-07 23:00 | NUR ---
NEW ADMIT ARRIVED AT 2230, PT COME BY [place] WITH RT AND ER STAFF.68 YEARS MALE. PT CHIEF C/O STEPHANIE. PER REPORT BY TIRSO SAM PT ALREADY GOT 2 MG ATROPEN IV AT ER.PT IS AWAKE NON VERBAL. NO S/S OF RESP DISTRESS, NO SOB. PT IS TRACH TO VENT WITH VENT SETTING AC RATE 14 ,TV 500,PEEP 5 FIO2 40%. CONT ON DIRECTOR SALES SUPPORT SHOWS BRADYCARDIA. IV LINE TO LEFT HAND NO 18 AND IO TO LEFT LEG. GT INPLACE TO LLQ PLACEMENT CONFIRM.F/C IN PLACE WITH YELLOW CLEAR URINE DRAIN BY GRAVITY. NO EDEMA NOTED. SKIN INTACT. GENTLE CARE GIVEN. KEPT CLEAN AND DRY. Addendum: 05/08/19 at 0404 by Brittani Garner RN PT ADMIT TO ICU BED 7
[2019-05-07 23:05] VITALS: BP 149/90
--- NOTE | 2019-05-07 23:30 | NUR ---
DR.ZAIDI MONREAL COME TO SEE PT PER MD TO COLLECT BLOOD CULTURE X2 AND START PT WITH ROCEPHIN 1 GR IV. MD ALSO AWARE THAT HR STILL LOW AND ATROPEN WAS GIVEN 2 MG IN ER. GENTLE CARE GIVEN. KEPT CLEAN AND DRY.MRSA SAMPLE SENT TO LAB.IV NS AT 50 CC/HR.
[2019-05-08] VITALS (23 sets, daily range): BP systolic 120–159; BP diastolic 72–101
[2019-05-08] MEDS ORDERED: cefTRIAXone 1,000 MG VIAL ONE (00:18)
--- NOTE | 2019-05-08 03:05 | NUR ---
PT SLEPT WELL, NO RESP.DISTRESS, NO SOB. PER DR.WEILE CARMICHAEL TO PUT NPO AT THIS TIME
[2019-05-08] MEDS ORDERED: ALBUTEROL SULFATE/IPRATROPIU 3 ML SOL IH SCH (06:00)
--- NOTE | 2019-05-08 06:00 | NUR ---
COME AND REQUESTING WOUND CONSULT D/T MARISELA SCALE SCORE IS LOW. AND TO FOLLOW UP GT FEEDING ORDER.
[2019-05-08] MEDS: LANSOPRAZOLE 30 MG CAPDR PO SCH (06:08)
[2019-05-08 06:10] LABS: BASOPHILS % (AUTO) 0.2 % (0.0-2.0); EOSINOPHILS # (AUTO) 0.1 K/uL (0-0.4); EOSINOPHILS % (AUTO) 2.1 % (0.0-4.0); HEMATOCRIT 33.3 % (36-52); HEMOGLOBIN 10.5 g/dL (12.0-18.0); LYMPHOCYTES # (AUTO) 0.7 K/uL (2.0-11.5); LYMPHOCYTES % (AUTO) 12.2 % (20.5-51.1); MEAN CORPUSCULAR HEMOGLOBIN 29 pg (27-31); MEAN CORPUSCULAR HGB CONC 32 g/dL (33-37); MEAN CORPUSCULAR VOLUME 92.2 fL (80-94); MONOCYTES # (AUTO) 0.4 K/uL (0.8-1.0); MONOCYTES % (AUTO) 7.2 % (1.7-9.3); NEUTROPHILS # (AUTO) 4.7 K/uL (1.8-7.7); NEUTROPHILS % (AUTO) 78.3 % (42.2-75.2); PLATELET COUNT (AUTO) 113 K/uL (140-450); RED BLOOD CELL COUNT(AUTO) 3.61 MIL/uL (4.20-6.10); RED CELL DISTRIBUTION WIDTH 16.6 % (11.6-13.7)
[2019-05-08 06:56] LABS: CREATININE 0.7 mg/dL (0.7-1.3); POTASSIUM 3.7 mmol/L (3.5-5.1)
[2019-05-08 07:12] LABS: MAGNESIUM 2.3 mg/dL (1.8-2.4); PHOSPHORUS 3.4 mg/dL (2.5-4.9)
[2019-05-08 07:13] LABS: CHOL/HDL RATIO 3.1 (1-4.5)
--- NOTE | 2019-05-08 07:15 | NUR ---
RECEIVED PT REPORT FROM BICYCLE ASSEMBLER RNNAREN. PT IS TRACH TO VENT, WITH BRADYCARDIA. PT OPENS HIS EYES SPONTANEOUSLY, NO TRACKING. NONVERBAL. NO S/S OF RESPIRATORY DISTRESS. VENT SETTING: AC RR 14, TV 500, PEEP 5, FIO2 30%. G TUBE CLAMPED, NPO EX MEDS. IV CATH 22G, TO LEFT HAND RUNNING NS AT 50ML/HR. IO TO LEFT LEG, SL. BOTH IV SITES ARE ASYMPTOMATIC. LINK CATH IN PLACE DRAINING CLOUDY YELLOW CLEAR URINE. PT IS BED BOUND WITH SOME MUSCULAR RIGIDITY. SKIN INTACT, WARM AND DRY. NO EDEMA NOTED. FALL AND SZ PRECAUTIONS IN PLACE. WILL CONTINUE TO MONITOR.
--- NOTE | 2019-05-08 07:15 | NUR ---
RECEIVED PATIENT ON VENT SETTINGS CHARTED. PT HAS SIZE 8 PORTEX CLEAN AND DRY. VENT PLUGGED INTO RED OUTLET, SPUTUM SAMPLE TAKEN TO RULE OUT PNEUMONIA THICK YELLOW SECRETIONS WERE OBTAINED. WILL CONTINUE TO MONITOR PATIENT.
[2019-05-08 07:23] LABS: ANION GAP 10.4 (8-16); CARBON DIOXIDE 31.3 mmol/L (21-32)
--- NOTE | 2019-05-08 08:00 | NUR ---
LINK CARE DONE, ORAL CARE DONE. PT REPOSITIONED.
--- NOTE | 2019-05-08 08:07 | NUR ---
PATIENT HAS BEEN SCREENED AND CATEGORIZED HIGH NUTRITION RISK. PATIENT WILL BE SEEN WITHIN 1-2 DAYS OF ADMISSION. 05/08/19-05/09/[address]
--- NOTE | 2019-05-08 08:25 | NUR ---
DR GARCIA CAME AND SEEN PT. PROVIDED DR GARCIA WITH THE ADMISSION 12 LEAD EKG AND AM EKG STRIPS. ASKED DR GARCIA IF I NEED TO HOLD TIMOLOL EYE DROP. DR GARCIA SAID NO, THE SYSTEMIC ABSORPTION IS NOT THAT MUCH.
[2019-05-08] MEDS: FAMOTIDINE 20 MG TAB PO SCH (08:28)
[2019-05-08] MEDS: DOCUSATE SODIUM 100 MG GELCAP PO SCH ×2 (08:29→21:03)
[2019-05-08] MEDS: ASPIRIN 81 MG TAB.CHEW GT SCH (08:29)
[2019-05-08] MEDS: DOXAZOSIN 2 MG TAB GT SCH (08:29)
[2019-05-08] MEDS: levETIRAcetam 100 MG/ML ORASYR GT SCH ×2 (08:29→21:03)
[2019-05-08] MEDS: TIMOLOL OP 0.5% 5 ML BTL OP SCH (08:34)
--- NOTE | 2019-05-08 08:50 | NUR ---
INSERTED IV 22G ON LEFT FA. REMOVED LEFT LEG IO PER PROTOCOL. NEEDLE INTACT, GAUZE APPLIED.
[2019-05-08] MEDS ORDERED: LISINOPRIL 5 MG TAB PO SCH (09:00)
[2019-05-08] MEDS ORDERED: amLODIPine 5 MG TAB PO SCH (09:00)
--- NOTE | 2019-05-08 09:55 | NUR ---
DR SHEEHAN AND WITH DR LARA WAS HERE, ASSESSED PT AND TALKED TO PT'S SISTER.
--- NOTE | 2019-05-08 10:00 | NUR ---
PT WAS REPOSITIONED.
[2019-05-08] MEDS: LEVOTHYROXINE 0.025 MG TAB PO SCH (10:55)
[2019-05-08] MEDS: PIPERACILLIN/TAZOBACTAM 4.5 GM in DEXTROSE 5% 100 ML IV SCH ×3 (11:09→23:52)
--- NOTE | 2019-05-08 11:20 | NUR ---
ECHOCARDIOGRAM TECH FINISHED ECHOCARDIOGRAM.
--- NOTE | 2019-05-08 11:50 | NUR ---
TRANSPORTED PT BACK TO ROOM FROM CT HEAD. RECONNECTED PT TO MONITOR.
--- NOTE | 2019-05-08 12:10 | NUR ---
ORAL CARE WAS DONE. STILL HAS MINIMAL GUM BLEEDING. PT HAS EYES CLOSED. NO S/S OF DISTRESS. PT'S SON FARIBA IS VISITING.
--- NOTE | 2019-05-08 12:30 | NUR ---
CALLED DIETITIAN LORNE WHO RECOMMENDED FEEDING VITAL AF AND SHE ALREADY SPOKE WITH DR LARA.
[2019-05-08] MEDS: ALBUTEROL SULFATE/IPRATROPIU 3 ML SOL IH SCH ×2 (13:00→19:30)
--- NOTE | 2019-05-08 13:00 | NUR ---
05/08/19 RD INITIAL ASSESSMENT COMPLETED PLEASE REFER TO NUTRITION ASSESSMENT UNDER CARE ACTIVITY FOR ESTIMATED NUTRITIONAL NEEDS. 1. RECOMMEND VITAL 1.2 @ 65 ML/HR -THIS WILL PROVIDE 1560 ML OF VOLUME, 1872 KCAL, AND 117 GM OF PROTEIN WHICH MEETS 100% OF ESTIMATED NUTRIENT NEEDS 2. RECOMMEND FREE WATER FLUSH OF [address] TO FOLLOW-UP 2-3 DAYS, HIGH RISK LORNE CATHERINE RD
--- NOTE | 2019-05-08 13:15 | NUR ---
STARTED G TUBE FEEDING AT 25ML/HR, WATER FLUSH 120ML Q4H, WILL INCREASE FEEDING RATE IF PT TOLERATES IT.
--- NOTE | 2019-05-08 13:59 | NUR ---
PT WAS REPOSITIONED. IV RUNNING GOOD, SITE INTACT AND ASYMPTOMATIC.
--- NOTE | 2019-05-08 14:46 | NUR ---
SCREEN PT. FOR LOW MARISELA SCALE AT RISK, CONTINUE TO FOLLOW PRESSURE ULCER PREVENTION INTERVENTIONS. -TURN AND REPOSITION PATIENT Q 2H -ASSESS AND MONITOR SKIN CONDITION DURING POSITION CHANGE -OFFLOAD BILATERAL HEELS BY PLACING PILLOWS UNDER CALVES AT ALL TIMES, UNLESS OTHERWISE CONTRAINDICATED -PRESSURE REDISTRIBUTION BY PLACING PILLOWS AND OFFLOADING SACRALCOCCYX -KEEP SKIN CLEAN AND DRY AT ALL TIMES.
--- NOTE | 2019-05-08 15:12 | NUR ---
MADE DR SHEEHAN AND DR LARA AWARE THAT I NOTICED MINIMAL BLEEDING WHILE DOING ORAL CARE. ASKED IF STILL CONTINUE WITH HEPARIN SUBQ. DR SHEEHAN SAID YES.
--- NOTE | 2019-05-08 15:15 | NUR ---
MADE DR SHEEHAN AND DR LARA AWARE TEMP 96.4F. DR SHEEHAN SAID TO GIVE MORE WARM BLANKETS, IF TEMP CONSISTENTLY LOW, CAN DO BEARHUGGER.
--- NOTE | 2019-05-08 15:16 | NUR ---
PROVIDED PT WITH 1 MORE BLANKET. PT NOW HAS THREE BLANKETS. PT STILL MOVES HIS EYES, BUT NO TRACKING.
--- NOTE | 2019-05-08 16:00 | NUR ---
PT EYES ARE CLOSED, RR EVEN AND UNLABORED. PT WAS REPOSITIONED.
--- NOTE | 2019-05-08 17:03 | NUR ---
G TUBE RESIDUAL 30ML, NO VOMITING HAS BEEN SEEN. INCREASED FEEDING RATE TO 45ML/HR, WATER FLUSH KEPT AT 120ML Q4H.
[2019-05-08] MEDS: NACL 0.9% 1,000 ML IV SCH (17:22)
--- NOTE | 2019-05-08 17:52 | NUR ---
CONTINUED TO MONITOR PT ON VENT WITH SETTINGS BREATH SOUNDS PRESENT BILAT SXN PT WITH MIN AMT OFF WHITE SECS TRACH SITE SECURE AMBU BAG AT BEDSIDE VENT PLUGGED INTO RED OUTLET
--- NOTE | 2019-05-08 19:30 | NUR ---
PT RECEIVED FROM CLAUDIO SAM. PT IS A&O xO. OPENS EYES, NO TRACKING NOTED. BILAT PUPILS 3MM, PERRL. PT TRACH TO VENT ON ACVC SETTINGS. FIO2 30, RATE 14, TV 500, PEEP 5. SINUS BRADYCARDIA ON MONITOR. HEART SOUNDS HEARD S1 AND S2. LUNG SOUNDS RHONCHI. IV SITES L HAND 22 GAUGE AND L FOREARM 22 GAUGE, BOTH INTACT, PATENT. L HAND INFUSING NS AT 50ML/HR. GTUBE TO FEEDING, NO RESIDUALS NOTED. ABDOMEN IS SOFT AND ROUND, BOWEL SOUNDS ACTIVE. GENERALIZED WEAKNESS. SKIN IS INTACT. SKIN IS WARM AND DRY. CAP REFILL LESS THAN 2 SECONDS. HOB 30 DEGREES. BED LOCKED IN LOWEST POSITION. WILL CONTINUE TO MONITOR.
--- NOTE | 2019-05-08 20:00 | NUR ---
ORAL CARE PROVIDED. NOTED SMALL AMOUNTS OF BLOOD IN MOUTH. Addendum: 05/08/19 at 2242 by Juan Alberto Dotson RN BLEEDING FROM THE GUMS
--- NOTE | 2019-05-08 20:20 | NUR ---
FAMILY MEMBER AT BEDSIDE.
[2019-05-08] MEDS ORDERED: DEXTRAN OP SCH (21:00)
[2019-05-08] MEDS ORDERED: HYPROMELLOSE OP SCH (21:00)
[2019-05-08] MEDS: POLYVINYL ALCOHOL 1.4% OP 15 ML SOL OP SCH (21:02)
[2019-05-08] MEDS: ATORVASTATIN 20 MG TAB GT SCH (21:03)
--- NOTE | 2019-05-08 21:05 | NUR ---
G TUBE TO FEEDING, VITAL AF. FEEDING INCREASED TO ORDER AT 65ML/HR
--- NOTE | 2019-05-08 21:15 | NUR ---
PT HAS EYES OPENS, NO TRACKING NOTED. RESPIRATIONS EVEN AND UNLABORED. PT REPOSITIONED. WILL CONTINUE TO MONITOR.
--- NOTE | 2019-05-08 23:55 | NUR ---
DARCIE CHAPPELL IV MEDICATION.
[2019-05-09] VITALS (23 sets, daily range): BP systolic 114–151; BP diastolic 69–93
--- NOTE | 2019-05-09 00:10 | NUR ---
ORAL CARE PROVIDED. SMALL AMOUNTS OF GUM BLEEDING NOTED. SAFETY PRECAUTIONS IN PLACE. WILL CONTINUE TO MONITOR.
--- NOTE | 2019-05-09 02:50 | NUR ---
PT HAD 1 LARGE BOWEL MOVEMENT. DARK GREEN, MUSH LIKE STOOL. NORMAL ODOR. PARMJIT CARE PROVIDED. PT TURNED AND REPOSITIONED.
--- NOTE | 2019-05-09 04:00 | NUR ---
ORAL CARE PROVIDED, PT REPOSITIONED. RESPIRATIONS EVEN AND UNLABORED. CHEST RISE IS SYMMETRICAL. SAFETY IN PRECAUTIONS IN PLACE. WILL CONTINUE TO MONITOR.
[2019-05-09 05:59] LABS: HEMATOCRIT 29.5 % (36-52); HEMOGLOBIN 9.6 g/dL (12.0-18.0); MEAN CORPUSCULAR HEMOGLOBIN 30 pg (27-31); MEAN CORPUSCULAR HGB CONC 33 g/dL (33-37); MEAN CORPUSCULAR VOLUME 92.5 fL (80-94); PLATELET COUNT (AUTO) 119 K/uL (140-450); RED BLOOD CELL COUNT(AUTO) 3.19 MIL/uL (4.20-6.10); RED CELL DISTRIBUTION WIDTH 16.7 % (11.6-13.7); WHITE BLOOD COUNT (AUTO) 3.7 K/uL (4.8-10.8)
[2019-05-09] MEDS: LEVOTHYROXINE 0.025 MG TAB PO SCH (06:08)
[2019-05-09] MEDS: LANSOPRAZOLE 30 MG CAPDR PO SCH (06:08)
[2019-05-09] MEDS: PIPERACILLIN/TAZOBACTAM 4.5 GM in DEXTROSE 5% 100 ML IV SCH ×4 (06:08→23:45)
[2019-05-09 06:15] LABS: MAGNESIUM 2.2 mg/dL (1.8-2.4)
[2019-05-09 06:19] LABS: ANION GAP 10.8 (8-16); CARBON DIOXIDE 31.6 mmol/L (21-32); POTASSIUM 3.4 mmol/L (3.5-5.1)
--- NOTE | 2019-05-09 06:25 | NUR ---
ORDERED MEDICATIONS GIVEN. PT HAS EYES OPEN, NO TRACKING NOTED. RESPIRATIONS EVEN AND UNLABORED. WILL CONTINUE TO MONITOR.
[2019-05-09 07:12] LABS: LYMPHOCYTES % (MANUAL) 22 % (20-46); MONOCYTES % (MANUAL) 4 % (5-12)
--- NOTE | 2019-05-09 07:12 | NUR ---
REPORT GIVEN TO CLAUDIO SAM. FOR CONTINUITY OF CARE.
[2019-05-09 07:13] LABS: EOSINOPHILS % (MANUAL) 4 % (0-4)
--- NOTE | 2019-05-09 07:25 | NUR ---
RECEIVED PT REPORT FROM FOOD SERVICE STEWARD RN, JW. PT IS TRACH TO VENT, WITH BRADYCARDIA AROUND 50 BPM. PT OPENS HIS EYES SPONTANEOUSLY, NO TRACKING. NONVERBAL. NO S/S OF RESPIRATORY DISTRESS. VENT SETTING: AC RR 14, TV 500, PEEP 5, FIO2 30%. G TUBE TO FEEDING VITAL AF RUNNING AT 65ML/HR. IV CATH 22G, TO LEFT HAND RUNNING NS AT 50ML/HR. IV TO LEFT FA 22G, FLUSHED, SL. BOTH IV SITES ARE ASYMPTOMATIC. LINK CATH IN PLACE DRAINING CLOUDY YELLOW URINE. PT IS BED BOUND. SKIN INTACT, WARM AND DRY. NO EDEMA NOTED. FALL AND SZ PRECAUTIONS IN PLACE. WILL CONTINUE TO MONITOR.
[2019-05-09] MEDS: ALBUTEROL SULFATE/IPRATROPIU 3 ML SOL IH SCH ×3 (07:29→18:56)
--- NOTE | 2019-05-09 07:29 | NUR ---
RECEIVED TRACH PT ON VENT WITH A PORTEX 8 TRACH. SETTINGS AC/VC 14, VT 500, PEEP 5 AND FIO2 30%. PT IS APHASIC NOT IN ANY DISTRESS. VENT IS PLUGGED INTO A RED OUTLET WITH ALARMS ON AND FUNCTIONING. AMBU BAG IS NEAR BEDSIDE. TRACH IS SECURE WITH A PATENT AIRWAY. WILL CONTINUE TO MONITOR.
--- NOTE | 2019-05-09 07:59 | NUR ---
ORAL CARE DONE, LINK CARE DONE. PT WAS REPOSITIONED.
[2019-05-09] MEDS: TIMOLOL OP 0.5% 5 ML BTL OP SCH (08:34)
[2019-05-09] MEDS: levETIRAcetam 100 MG/ML ORASYR GT SCH ×2 (08:34→20:36)
[2019-05-09] MEDS: ASPIRIN 81 MG TAB.CHEW GT SCH (08:34)
[2019-05-09] MEDS: FAMOTIDINE 20 MG TAB PO SCH (08:34)
[2019-05-09] MEDS: DOCUSATE SODIUM 100 MG GELCAP PO SCH ×2 (08:34→20:36)
[2019-05-09] MEDS: DOXAZOSIN 2 MG TAB GT SCH (08:35)
[2019-05-09] MEDS: amLODIPine 5 MG TAB PO SCH (08:35)
[2019-05-09] MEDS: LISINOPRIL 5 MG TAB PO SCH (08:35)
--- NOTE | 2019-05-09 08:35 | NUR ---
DISCHARGE PLANNIN68 Y/O MALE PATIENT FROM [facility], WHO CAME IN DUE TO 1 DAY HISTORY OF GAVINO CARDIA. 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 INITIAL DIAGNOSIS OF BRADYCARDIA. CURRENT LABS INCLUDE WBC 3.7, H/H 9.6/29.6, NA/K 146/3.4, BUN/CREA 24/1.0. DNR. URINE, SPUTUM AND BLOOD C/S PENDING. CARDIO CONSULT WITH DR. GARCIA FOR BRADYCARDIA. PULMO CONSULT WITH DR. KATHLEEN FOR TRACH TO VENT. DOWNGRADED TO TELE TODAY. ON ZOSYN. CXR ON ADMISSION SHOWED POORLY EXPANDED LUNGS WITH BIBASAL ATELECTASIS, POSSIBLE MILD SUPERIMPOSED PULMONARY EDEMA AND MILD CARDIOMEGALY. HEAD CT SHOWED ATROPHY AND CHRONIC CHANGES OF THE BRAIN. LIKELY BILATERAL OTOMASTOIDITIS AND MILD SINUS DISEASE. DC PLAN BACK TO [facility] ONCE STABLE. Addendum: 05/09/19 at 1108 by Lucy Benitez CM RECEIVED AN ORDER FOR DC BACK TO [facility] ON Sunday05/11/2019 FOR IV ANTIBIOTIC X 10 DAYS. REFERRAL SENT TO [facility]. LINDA TO FOLLOW UP. Addendum: 05/09/19 at 1114 by Lucy Benitez CM RECEIVED A CALL FROM AHMET OF [facility], SHE STATED THEY NEED THE SPUTUM AND URINE CULTURE FIRST. CONTACTED LAB AT [id number], MACHINE PAN GREASER STATED URINE CULTURE MIGHT COME IN TODAY. WILL FOLLOW UP. Addendum: 05/11/19 at 1007 by Lucy Benitez PATIENT IS FOR DC BACK TO [facility] TODAY. PER DR. DANIELSON PATIENT DOES NOT NEED ANTIBIOTIC ANYMORE. WILL FAX NEW ORDER TO [facility]. CONTACTED [facility] AT [phone], ABLE TO SPEAK TO SANA SAM STAKING PRESS OPERATOR REGARDING THE FAX SENT. SHE STATED SHE WILL CHECK WITH ADMISSION IF THEY RECEIVED IT. SHE REQUESTED TO SEND CLINICALS, SO THEY CAN REVIEW IT. CLINICALS SENT. Addendum: 05/11/19 at 1105 by Lucy Benitez CM PER SANA SAM STAKING PRESS OPERATOR AT [facility] SHE RECEIVED THE CLINICALS I FAXED AND WE ARE GOOD TO GO FOR 1200 FAMILY DINNER SERVICE SPECIALIST. PATIENT WILL GO TO ROOM 2C UNDER DR. COOK. CHARGE NURSE MADE AWARE. Addendum: 05/11/19 at 1119 by Lucy Benitez CM LATE ENTRY: CONTACTED PATIENT'S SON FARIBA FRANCO AT [phone], REGARDING DC PLAN AND IS AGREEABLE. INFORMED HIM WELL OF THE IMM LETTER.
--- NOTE | 2019-05-09 09:13 | NUR ---
CALLED MAYO CHARGE NURSE IN TELE, INFORMED HER ABOUT THE TRANSFER ORDER.
--- NOTE | 2019-05-09 09:40 | NUR ---
G TUBE FEEDING CHANGED. SET RATE TO 65ML/HR, H2O FLUSH 120ML Q4H.
--- NOTE | 2019-05-09 09:58 | NUR ---
FIO2 TITRATED TO 24%. WILL CONTINUE TO MONITOR.
[2019-05-09] MEDS ORDERED: PROBIOTIC SCREEN 1 EA MISC MC PRN (10:55)
[2019-05-09] MEDS ORDERED: KCL 20 MEQ/WATER INJ PREMIX 100 ML IV SCH (11:00)
[2019-05-09] MEDS: NACL 0.9% 1,000 ML IV SCH (13:57)
--- NOTE | 2019-05-09 14:02 | NUR ---
GREEN PASTY STOOL, PT WAS CLEANED AND REPOSITIONED. SKIN INTACT, NO REDNESS. OPTIFOAM PLACED FOR PREVENTION.
--- NOTE | 2019-05-09 14:30 | NUR ---
NOTIFIED DR DONOVAN MERCHANT ABOUT GREEN PASTY STOOL, PT HAS NO FEVER, HGB 9.6. NO NEW ORDERS.
--- NOTE | 2019-05-09 15:31 | NUR ---
PT NOT IN ANY DISTRESS AT THIS TIME. WILL CONTINUE TO MONITOR.
[2019-05-09] MEDS: CHLORHEXADINE GLUC 2% CLOTH TP SCH (16:51)
--- NOTE | 2019-05-09 17:44 | NUR ---
PT REMAINS ON DOCUMENTED VENT SETTINGS. PT NOT IN ANY DISTRESS AT THIS TIME. TRACH IS SECURE WITH A PATENT AIRWAY. VENT ALARMS REMAIN ON AND FUNCTIONING.
[2019-05-09] MEDS: MUPIROCIN CA NASAL 2% 1GM TUBE NS SCH (18:11)
--- NOTE | 2019-05-09 19:12 | NUR ---
RECEIVED PT FROM CLAUDIO SAM. PT A&O X0. OPENS EYES, NO TRACKING NOTED. BILAT PUPILS 3MM, PERRL. PT TRACH TO VENT ON ACVC SETTINGS. FIO2 24%, RATE 14, TV 500, PEEP 5. LUNG SOUNDS CLEAR. SINUS BRADYCARDIA ON MONITOR. HEART SOUNDS HEARD S1 AND S2. IV SITE L FOREARM 22 GAUGE, PATENT, INTACT. IV SITE L HAND 22 GAUGE INTACT, INFUSING NS 50ML/HR. ABDOMEN SOFT AND ROUND, ACTIVE BOWEL SOUNDS. GTUBE TO FEEDING, NO RESIDUALS NOTED. SKIN IS WARM AND DRY, CAP REFILL LESS THAN [address] LINK CATHETER IN PLACE. GENERALIZED WEAKNESS. HOB 30 DEGREES. BED LOCKED IN LOWEST POSITION.
--- NOTE | 2019-05-09 20:30 | NUR ---
ORAL CARE PROVIDED, PT REPOSITIONED. SAFETY PRECAUTIONS IN PLACE. HOB 30 DEGREES. BED LOCKED IN LOWEST POSITION. WILL CONTINUE TO MONITOR.
[2019-05-09] MEDS: ATORVASTATIN 20 MG TAB GT SCH (20:36)
[2019-05-09] MEDS: POLYVINYL ALCOHOL 1.4% OP 15 ML SOL OP SCH (20:42)
--- NOTE | 2019-05-09 22:30 | NUR ---
PT HAS EYES CLOSED, RESPIRATIONS EVEN AND UNLABORED. SINUS BRADYCARDIA ON MONITOR. NO DISTRESS NOTED. WILL CONTINUE TO MONITOR. HOB 30 DEGREES. BED LOCKED IN LOWEST POSITION. WILL CONTINUE TO MONITOR.
[2019-05-10] VITALS (17 sets, daily range): BP systolic 125–150; BP diastolic 75–90
--- NOTE | 2019-05-10 00:12 | NUR ---
ORAL CARE PROVIDED. DARCIE CHAPPELL IVPB MEDICATION. WILL CONTINUE TO MONITOR.
--- NOTE | 2019-05-10 02:05 | NUR ---
PT COUGHING, SUCTIONED PT NEEDED. WILL CONTINUE TO MONITOR.
--- NOTE | 2019-05-10 04:25 | NUR ---
PT HAS EYES CLOSED. SINUS BRADYCARDIA ON MONITOR. RESPIRATIONS EVEN AND UNLABORED. NO DISTRESS NOTED. HOB 30 DEGREES. BED LOCKED IN LOWEST POSITION. WILL CONTINUE TO MONITOR.
--- NOTE | 2019-05-10 04:58 | NUR ---
PT REPOSITIONED. ORAL CARE, LINK CATHETER CARE, AND PARMJIT CARE PROVIDED. HOB 30 DEGREES. BED LOCKED IN LOWEST POSITION. WILL CONTINUE TO MONITOR.
[2019-05-10 05:13] LABS: BASOPHILS % (AUTO) 0.5 % (0.0-2.0); EOSINOPHILS # (AUTO) 0.2 K/uL (0-0.4); EOSINOPHILS % (AUTO) 5.2 % (0.0-4.0); HEMATOCRIT 28.4 % (36-52); HEMOGLOBIN 9.1 g/dL (12.0-18.0); MEAN CORPUSCULAR HEMOGLOBIN 30 pg (27-31); MEAN CORPUSCULAR HGB CONC 32 g/dL (33-37); MEAN CORPUSCULAR VOLUME 92.5 fL (80-94); MONOCYTES # (AUTO) 0.4 K/uL (0.8-1.0); MONOCYTES % (AUTO) 11.6 % (1.7-9.3); NEUTROPHILS # (AUTO) 2.1 K/uL (1.8-7.7); NEUTROPHILS % (AUTO) 56.7 % (42.2-75.2); PLATELET COUNT (AUTO) 110 K/uL (140-450); RED BLOOD CELL COUNT(AUTO) 3.07 MIL/uL (4.20-6.10); WHITE BLOOD COUNT (AUTO) 3.7 K/uL (4.8-10.8)
[2019-05-10 05:30] LABS: ANION GAP 9.2 (8-16); CARBON DIOXIDE 29.4 mmol/L (21-32); POTASSIUM 3.6 mmol/L (3.5-5.1)
[2019-05-10 05:33] LABS: MAGNESIUM 2.1 mg/dL (1.8-2.4); PHOSPHORUS 3.5 mg/dL (2.5-4.9)
--- NOTE | 2019-05-10 05:40 | NUR ---
GTUBE FEEDING CONTINUED. VITAL AF 1.2 at 65ML/HR, 120ML WATER FLUSH, Q4H.
[2019-05-10] MEDS: PIPERACILLIN/TAZOBACTAM 4.5 GM in DEXTROSE 5% 100 ML IV SCH ×4 (05:55→23:21)
[2019-05-10] MEDS: LANSOPRAZOLE 30 MG CAPDR PO SCH (05:55)
[2019-05-10] MEDS: LEVOTHYROXINE 0.025 MG TAB PO SCH (05:56)
[2019-05-10] MEDS: ALBUTEROL SULFATE/IPRATROPIU 3 ML SOL IH SCH ×3 (06:56→18:39)
--- NOTE | 2019-05-10 06:56 | NUR ---
RECEIVED TRACH PT ON VENT WITH A PORTEX 8 TRACH. SETTINGS AC/VC 14, VT 500, PEEP 5 AND FIO2 24%. PT IS APHASIC NOT IN ANY DISTRESS. VENT IS PLUGGED INTO A RED OUTLET WITH ALARMS ON AND FUNCTIONING. AMBU BAG IS NEAR BEDSIDE. TRACH IS SECURE WITH A PATENT AIRWAY. WILL CONTINUE TO MONITOR.
--- NOTE | 2019-05-10 07:14 | NUR ---
REPORT GIVEN TO CLAUDIO SAM. FOR CONTINUITY OF CARE.
--- NOTE | 2019-05-10 07:30 | NUR ---
RECEIVED PT REPORT FROM SCHOOL SECRETARY RN, JW. PT IS TRACH TO VENT, WITH BRADYCARDIA AROUND 50 BPM. PT OPENS HIS EYES SPONTANEOUSLY, NO TRACKING. NONVERBAL. NO S/S OF RESPIRATORY DISTRESS. VENT SETTING: AC RR 14, TV 500, PEEP 5, FIO2 24%. G TUBE TO FEEDING VITAL AF RUNNING AT 65ML/HR, H2O FLUSH 120ML Q4H. IV CATH 22G, TO LEFT HAND RUNNING NS AT 50ML/HR. IV TO LEFT FA 22G, FLUSHED, SL. BOTH IV SITES ARE ASYMPTOMATIC. LINK CATH IN PLACE DRAINING CLEAR YELLOW URINE. PT IS BED BOUND. SKIN INTACT, WARM AND DRY. NO EDEMA NOTED. FALL AND SZ PRECAUTIONS IN PLACE. WILL CONTINUE TO MONITOR.
--- NOTE | 2019-05-10 08:00 | NUR ---
REPOSITIONED PT. PROVIDED ORAL CARE AND LINK CARE.
[2019-05-10] MEDS: LISINOPRIL 5 MG TAB PO SCH (08:38)
[2019-05-10] MEDS: LACTOBACILLUS RHAMNOSUS GG 1 EACH CAP PO SCH (08:38)
[2019-05-10] MEDS: amLODIPine 5 MG TAB PO SCH (08:38)
[2019-05-10] MEDS: ASPIRIN 81 MG TAB.CHEW GT SCH (08:38)
[2019-05-10] MEDS: FAMOTIDINE 20 MG TAB PO SCH (08:38)
[2019-05-10] MEDS: DOCUSATE SODIUM 100 MG GELCAP PO SCH ×2 (08:39→20:38)
[2019-05-10] MEDS: levETIRAcetam 100 MG/ML ORASYR GT SCH ×2 (08:39→20:37)
[2019-05-10] MEDS: TIMOLOL OP 0.5% 5 ML BTL OP SCH (08:40)
[2019-05-10] MEDS: DOXAZOSIN 2 MG TAB GT SCH (08:40)
--- NOTE | 2019-05-10 10:00 | NUR ---
CHG WIPES DONE, PT WAS REPOSITIONED. SKIN INTACT. NO BM AT THIS TIME.
[2019-05-10] MEDS: NACL 0.9% 1,000 ML IV SCH (10:10)
--- NOTE | 2019-05-10 13:27 | NUR ---
PT SUCTIONED OBTAINED SMALL AMOUNT OF THICK SECRETIONS, AIRWAY IS PATENT AND TRACH IS SECURE. WILL CONTINUE TO MONITOR. PT NOT IN ANY DISTRESS.
--- NOTE | 2019-05-10 15:15 | NUR ---
05/10/19 RD FOLLOW UP COMPLETED PLEASE REFER TO NUTRITION ASSESSMENT UNDER CARE ACTIVITY FOR ESTIMATED NUTRITIONAL NEEDS. 1. CONTINUE VITAL 1.2 @ 65 ML/HR -THIS WILL PROVIDE 1560 ML OF VOLUME, 1872 KCAL, AND 117 GM OF PROTEIN WHICH MEETS 100% OF ESTIMATED NUTRIENT NEEDS 2. CONTINUE FREE WATER FLUSH OF 120 ML Q4H 3. ASSESS AND ADJUST TUBE FEED RATE IF PT KEEPS GAINING WT 4. RD TO FOLLOW-UP 2-3 DAYS, HIGH RISK DAWNA HENSLEY RD
--- NOTE | 2019-05-10 16:00 | NUR ---
BMX1, GREEN STOOL. CLEANED PT AND REPOSITIONED PT.
[2019-05-10] MEDS: CHLORHEXADINE GLUC 2% CLOTH TP SCH (16:16)
[2019-05-10] MEDS: MUPIROCIN CA NASAL 2% 1GM TUBE NS SCH (16:16)
--- NOTE | 2019-05-10 16:17 | NUR ---
PER FLACO HOOD FROM [facility], SHE WILL CALL BACK REGARDING ISOLATION ROOM AVAILABILITY FOR TOMORROW (Sunday05/11/2019).
--- NOTE | 2019-05-10 17:15 | NUR ---
PER DR. FERMIN, BLS TRANSFER IS OK TO DISCHARGE PT TO [facility]. WILL CALL [facility] WHEN THERE IS AN ISOLATION ROOM AVAILABLE IN [facility].
--- NOTE | 2019-05-10 17:19 | NUR ---
PT NOT IN ANY DISTRESS AT THIS TIME. VENT ALARMS ON AND FUNCTIONING. TRACH REMAINS SECURE WITH A PATENT AIRWAY.
--- NOTE | 2019-05-10 18:05 | NUR ---
RECEIVED CALL BACK FROM FLACO HOOD FROM [facility]. PER SANA, PT WILL BE GOING TO HIS PREVIOUS ROOM # 2B IN [place], NO ISOLATION ROOM NEEDED FOR POSITIVE MRSA NARES IN [facility]. SANA DOES NOT HAVE PT'S VACCINE RECORDS OR ADMITTING PHYSICIAN NAME.
--- NOTE | 2019-05-10 18:05 | NUR ---
PT COUGHING, DEEP SUCTIONED PROVIDED, OBTAINED CLEAR/YELLOW SPUTUM. ORAL CARE DONE.
--- NOTE | 2019-05-10 18:35 | NUR ---
DR FERMIN ROUNDED THE PT. MADE HER AWARE PT HAS GREEN STOOL AND GUM BLEEDING. Addendum: 05/10/19 at 1843 by Sebastian Chisholm RN ALSO MENTIONED TO HER THAT HGB 9.1 Addendum: 05/10/19 at 1857 by Sebastian Chisholm RN CHANGE DR FERMIN TO DR GINGER Paulson
--- NOTE | 2019-05-10 18:40 | NUR ---
SPOKE WITH CHASTITY FROM [facility], TRANSPORTATION (CCT- RT ONLY) SCHEDULED AT TOMORROW (05/11/2019- SUNDAY), [facility] [facility] AT 12:00 TO DISCHARGE PT TO [facility]. MEDICARE PHYSICIAN CERTIFICATION STATEMENT FORM (PCS) FAXED TO . TRANSPORT AUTH# [id number].
--- NOTE | 2019-05-10 18:47 | NUR ---
RECEIVED PT ON AC 14,500,24%. ALARMS AUDIBLE AND WORKING. VENT PLUGGED INTO RED OUTLET. [employer] AT HEAD OF BED. WILL CONT TO MONITOR
--- NOTE | 2019-05-10 19:30 | NUR ---
REPORT RECEIVED FROM CLAUDIO SAM. PT TRACH TO VENT ON ACVC SETTINGS. FIO2 24% TV 500, RATE 14, PEEP 5. PT A&O X0. OPENS EYES, NO TRACKING NOTED. SINUS BRADYCARDIA ON MONITOR. HEART SOUNDS HEARD S1 ANS S2. LUNG SOUNDS CLEAR, DIMINISHED AT BASES. IV SITE L FOREARM, SALINE LOCK INTACT, PATENT, GOOD BLOOD RETURN. IV SITE, L HAND INTACT, INFUSING NS AT 50ML/HR. ABDOMEN IS SOFT AND ROUND, ACTIVE BOWEL SOUNDS. GTUBE TO FEEDING. RESIDUALS 50ML. SKIN IS INTACT, WARM AND DRY. CAP REFILL LESS THAN 2 SECONDS. FLACC 0. SAFETY PRECAUTIONS IN PLACE. HOB 30 DEGREES, BED LOCKED IN LOWEST POSITION. WILL CONTINUE TO MONITOR.
--- NOTE | 2019-05-10 20:00 | NUR ---
ORAL CARE PROVIDED. RESPIRATIONS EVEN AND UNLABORED. NO DISTRESS NOTED. SAFETY PRECAUTIONS IN PLACE. WILL CONTINUE TO MONITOR.
[2019-05-10] MEDS: ATORVASTATIN 20 MG TAB GT SCH (20:37)
[2019-05-10] MEDS: POLYVINYL ALCOHOL 1.4% OP 15 ML SOL OP SCH (20:37)
--- NOTE | 2019-05-10 21:05 | NUR ---
ROUTINE VENT CHECK. PATIENT SAT 100%. NO DISTRESS NOTED. WILL CONT TO MONITOR.
--- NOTE | 2019-05-10 22:45 | NUR ---
PT REPOSITIONED. RESPIRATIONS EVEN AND UNLABORED. NO SOB NOTED. HOB 30 DEGREES. BED LOCKED IN LOWEST POSITION. WILL CONTINUE TO MONITOR.
[2019-05-11] VITALS (11 sets, daily range): BP systolic 135–153; BP diastolic 82–98
--- NOTE | 2019-05-11 00:12 | NUR ---
ORAL CARE PROVIDED. RESPIRATIONS EVEN AND UNLABORED. NO SOB OR DISTRESS NOTED. SAFETY PRECAUTIONS IN PLACE. WILL CONTINUE TO MONITOR.
--- NOTE | 2019-05-11 02:10 | NUR ---
PT HAS EYES OPEN, NO TRACKING NOTED. RESPIRATIONS EVEN AND UNLABORED. NO DISTRESS NOTED. SAFETY PRECAUTIONS IN PLACE. WILL CONTINUE TO MONITOR.
--- NOTE | 2019-05-11 03:35 | NUR ---
ROUTINE VENT CHECK. SX OUT MODERATE OF THICK WHITE SECRETIONS VIA DEEP TRACHEAL SX AND ORALLY.
--- NOTE | 2019-05-11 04:12 | NUR ---
SPONGE BATH, PARMJIT CARE, AND LINK CATHETER CARE PROVIDED. PT REPOSITIONED. HOB 30 DEGREES. BED LOCKED IN LOWEST POSITION. WILL CONTINUE TO MONITOR.
[2019-05-11] MEDS: LEVOTHYROXINE 0.025 MG TAB PO SCH (05:46)
[2019-05-11] MEDS: PIPERACILLIN/TAZOBACTAM 4.5 GM in DEXTROSE 5% 100 ML IV SCH ×2 (05:46→11:01)
[2019-05-11] MEDS: LANSOPRAZOLE 30 MG CAPDR PO SCH (05:47)
[2019-05-11] MEDS: NACL 0.9% 1,000 ML IV SCH (06:13)
--- NOTE | 2019-05-11 06:15 | NUR ---
ORAL CARE PROVIDED. PT HAS EYES OPEN, NO TRACKING NOTED. RESPIRATIONS EVEN AND UNLABORED. NO DISTRESS NOTED. SAFETY PRECAUTIONS IN PLACE. WILL CONTINUE TO MONITOR.
--- NOTE | 2019-05-11 07:20 | NUR ---
REPORT GIVEN TO KRISTOPHER SAM FOR CONTINUITY OF CARE.
--- NOTE | 2019-05-11 07:30 | NUR ---
RECEIVED A REPORT FROM THE NIGHT NURSE. PT EYES CLOSED AND NONVERBAL. TRACH TO VENT AC 14, FIO2 24, TV 500, PEEP 5, BILATERAL LUNG SOUNDS WITH CRACKLES. SUCTIONED AND LUNG SOUNDS CLEAR. BRADYCARDIA ON THE MONITOR. AFEBRILE. BOWEL SOUNDS ACTIVE FROM ALL [address] AND RESIDUAL OF 10ML. TOLERATING GT FEEDING WELL. TOTAL CARE ASSISTANCE NEEDED. REPOSITIONED FOR COMFORT. LINK CATH DRAINING CLEAR YELLOW URINE. IV SITES ALL PATENT AND ASYMPTOMATIC. ALL EXTREMITIES WITH NON PITTING EDEMA. NO ACUTE DISTRESS NOTED. DISCHARGE ORDER NOTED. ALL SAFETY PRECAUTIONS IN PLACE. WILL CONTINUE TO MONITOR.
[2019-05-11] MEDS: ALBUTEROL SULFATE/IPRATROPIU 3 ML SOL IH SCH (07:52)
[2019-05-11] MEDS ORDERED: LACT-81 GT (07:55)
[2019-05-11] MEDS: LACTOBACILLUS RHAMNOSUS GG 1 EACH CAP PO SCH (08:06)
[2019-05-11] MEDS: levETIRAcetam 100 MG/ML ORASYR GT SCH (08:06)
[2019-05-11] MEDS: FAMOTIDINE 20 MG TAB PO SCH (08:07)
[2019-05-11] MEDS: ASPIRIN 81 MG TAB.CHEW GT SCH (08:07)
[2019-05-11] MEDS: DOCUSATE SODIUM 100 MG GELCAP PO SCH (08:07)
[2019-05-11] MEDS: DOXAZOSIN 2 MG TAB GT SCH (08:07)
[2019-05-11] MEDS: LISINOPRIL 5 MG TAB PO SCH (08:08)
[2019-05-11] MEDS: amLODIPine 5 MG TAB PO SCH (08:09)
[2019-05-11] MEDS: TIMOLOL OP 0.5% 5 ML BTL OP SCH (08:10)
--- NOTE | 2019-05-11 08:32 | NUR ---
MEDICATIONS ADMINISTERED ORDERED. ORAL VAP CARE PROVIDED. WILL CONTINUE TO MONITOR.
--- NOTE | 2019-05-11 09:19 | NUR ---
FARIBA, SON CALLED AND MADE AWARE OF THE DISCHARGE TO [facility] TODAY. VERBAL CONSENT OBTAINED AND VERIFIED BY THE SECOND NURSE.
[2019-05-11 10:26] LABS: HEMOGLOBIN 9.1 g/dL (12.0-18.0); MEAN CORPUSCULAR HEMOGLOBIN 30 pg (27-31); MEAN CORPUSCULAR HGB CONC 32 g/dL (33-37); MEAN CORPUSCULAR VOLUME 92.7 fL (80-94); PLATELET COUNT (AUTO) 111 K/uL (140-450); RED BLOOD CELL COUNT(AUTO) 3.01 MIL/uL (4.20-6.10); RED CELL DISTRIBUTION WIDTH 17.5 % (11.6-13.7)
--- NOTE | 2019-05-11 10:52 | NUR ---
REPORT GIVEN VIA TELEPHONE TO FLACO HOOD FROM [facility] IN PREPARATION OF DISCHARGE TO THEIR FACILITY. [facility] ETA 12 NOON.
[2019-05-11] MEDS ORDERED: CHLO118S2 TP (11:03)
[2019-05-11] MEDS ORDERED: LEVO0.0211 PO (11:03)
[2019-05-11] MEDS ORDERED: MUPI2CRE22 NS (11:03)
[2019-05-11 11:28] LABS: EOSINOPHILS % (MANUAL) 4 % (0-4); LYMPHOCYTES % (MANUAL) 37 % (20-46); MONOCYTES % (MANUAL) 4 % (5-12)
[2019-05-11 11:35] LABS: ANION GAP 11.6 (8-16); POTASSIUM 3.6 mmol/L (3.5-5.1)
--- NOTE | 2019-05-11 11:50 | NUR ---
PT SUCTIONED OBTAINED SMALL AMOUNT OF THICK CLEAR SECRETIONS, AIRWAY IS PATENT AND TRACH IS SECURE. PT NOT IN ANY DISTRESS . WILL CONTINUE TO MONITOR.
--- NOTE | 2019-05-11 12:28 | NUR ---
[facility] CAME WITH 2 RETAIL RESET MERCHANDISER AND 1 HOOD FITTER. REPORT GIVEN TO HOOD FITTER WITH ALL DISCHARGE PAPER WORKS. PT HAD NO BELONGINGS TO TAKE. PT DISCHARGED TO [facility] AT THIS TIME. V/S STABLE AND NO ACUTE DISTRESS NOTED.
== END 2019-05-11 12:28 | DRG 871 ==
LOC: MED 18:42 → MIC 22:06
PROVIDERS: ADMIT General Practice; ATTEND General Practice
PROC: 5A1935Z Respiratory Ventilation, Less than 24 Consecutive Hours (ICD-10-PCS; principal; 2019-05-07)
DX: A41.9 Sepsis, unspecified organism (principal); J96.21 Acute and chronic respiratory failure with hypoxia; I61.4 Nontraumatic intracerebral hemorrhage in cerebellum; J69.0 Pneumonitis due to inhalation of food and vomit; G93.40 Encephalopathy, unspecified; N39.0 Urinary tract infection, site not specified; N13.8 Other obstructive and reflux uropathy; Z99.11 Dependence on respirator [ventilator] status; R13.10 Dysphagia, unspecified; G40.909 Epilepsy, unspecified, not intractable, without status epilepticus; I10 Essential (primary) hypertension; H40.9 Unspecified glaucoma; K21.9 Gastro-esophageal reflux disease without esophagitis; N40.1 Benign prostatic hyperplasia with lower urinary tract symptoms; D63.8 Anemia in other chronic diseases classified elsewhere; E78.5 Hyperlipidemia, unspecified; Z66 Do not resuscitate; E87.6 Hypokalemia; Z86.73 Personal history of transient ischemic attack (TIA), and cerebral infarction without residual deficits; Z93.0 Tracheostomy status
CPT/HCPCS: 36415; 36600; 70450; 71045; 80048; 80053; 81001; 82803; 82948; 83036; 83605; 83735; 83880; 84100; 84443; 84484; 85025; 85610; 85730; 87040; 87070; 87081; 87086; 87186; 87205; 93005; 94002; 94003; 94640; 96374; 99285; J0696; J1644; J2543; J3480; J7030; J7060; J7620; Q0092

== ENCOUNTER 2019-09-26 06:00 | Inpatient (IN) | payer OTHER ==
[~2019-09-26] VITALS: Ht 167.6 cm; Wt 80.7 kg
[2019-09-26] VITALS (11 sets, daily range): BP systolic 93–180; BP diastolic 55–104
[~2019-09-26 06:00] MED LIST changes: +AMLO5TAB PO; +ASCO500T45 GT; +CHLO118S2 TP; +DOCU250S72 GT; +FERR75LI22 GT; +LEVO0.0211 PO; -LORA2SOL69 IM; +LORA2SOL69 IV; +MULT-153 GT; +MUPI2CRE22 NS; -PIPE1PDS26 IV
--- NOTE | 2019-09-26 06:12 | NUR ---
69 Y/O MALE BIBA FROM [facility] C/O BRADYCARDIA X TODAY. LUNG SOUNDS CRACKLES, RALES ALL THROUGHOUT. PT ON MECHANICAL VENTILATION. SPO2 100%. PT SKIN IS COLD TO TOUCH, SKIN COLOR IS PALE. UNSTABLE VS. EKG SHOWS BRADYCARDIA. HEART SOUNDS S1S2 PRESENT. RADIALS PULSES+1 WEAK AND THREADY BILAT UPPER EXTREM. CAP REFILL < 3, GCS 4 (EYES TO PAIN, MOTOR NONE, AND VERBAL NONE). STIMULUS TO DEEP PAIN. +3 PITTING EDEMA ON RIGHT ANKLE AND PEDAL EXTREM, AND +2 PITTING EDMEA ON LEFT LEG. G-TUBE AND LINK PRESENT. NKA. DNR. PMH: STROKE,
--- NOTE | 2019-09-26 06:12 | NUR ---
PMH: CHRONIC RESP FAILURE, TRACH, HTN, ANEMIA, HYPERLIPIDEMIA, EPILEPSY, GERD, TIA, STROKE.
[2019-09-26] MEDS ORDERED: DOPPLER MC ONE ×2 (06:13→06:15)
[2019-09-26 06:40] LABS: BASOPHILS % (AUTO) 0.2 % (0.0-2.0); EOSINOPHILS # (AUTO) 0.1 K/uL (0-0.4); EOSINOPHILS % (AUTO) 3.3 % (0.0-4.0); HEMATOCRIT 31.5 % (36-52); HEMOGLOBIN 10.1 g/dL (12.0-18.0); LYMPHOCYTES # (AUTO) 0.9 K/uL (2.0-11.5); LYMPHOCYTES % (AUTO) 24.9 % (20.5-51.1); MEAN CORPUSCULAR HEMOGLOBIN 30 pg (27-31); MEAN CORPUSCULAR HGB CONC 32 g/dL (33-37); MEAN CORPUSCULAR VOLUME 94.4 fL (80-94); MONOCYTES # (AUTO) 0.3 K/uL (0.8-1.0); MONOCYTES % (AUTO) 8.3 % (1.7-9.3); NEUTROPHILS # (AUTO) 2.2 K/uL (1.8-7.7); NEUTROPHILS % (AUTO) 63.3 % (42.2-75.2); PLATELET COUNT (AUTO) 40 K/uL (140-450); RED BLOOD CELL COUNT(AUTO) 3.33 MIL/uL (4.20-6.10); WHITE BLOOD COUNT (AUTO) 3.4 K/uL (4.8-10.8)
--- NOTE | 2019-09-26 06:41 | NUR ---
TOOK URINE TO LAB.
--- NOTE | 2019-09-26 06:42 | NUR ---
XR AT BEDSIDE.
[2019-09-26 06:55] LABS: APPEARANCE,URINE CLEAR (CLEAR); BILIRUBIN,URINE NEGATIVE (NEGATIVE); BLOOD, URINE 2+ (NEGATIVE); COLOR,URINE YELLOW (YELLOW); LEUKOCYTE ESTERASE ,URINE 1+ (NEGATIVE); NITRITE, URINE NEGATIVE (NEGATIVE); PH,URINE 7.5 (5.0-9.0); UGLUCOSE NEGATIVE (NEGATIVE)
[2019-09-26 06:58] LABS: ANION GAP 10.8 (8-16); CARBON DIOXIDE 31.3 mmol/L (21-32); POTASSIUM 4.1 mmol/L (3.5-5.1)
[2019-09-26 07:04] LABS: ALBUMIN 2.6 g/dL (3.4-5.0); TOTAL BILIRUBIN 0.4 mg/dL (0.0-1.0)
[2019-09-26] MEDS ORDERED: cefTRIAXone 1,000 MG VIAL ONE (07:18)
[2019-09-26 07:20] LABS: HYALINE CASTS, URINE 0-10 /LPF (None Seen)
--- NOTE | 2019-09-26 07:20 | NUR ---
Pt report given to FLACO TOLENTINO. Transfer of care at this time.
--- NOTE | 2019-09-26 07:21 | NUR ---
REPORT OBTAINED FROM CALEB SAM FOR CONTINUITY OF CARE
[2019-09-26 07:31] LABS: PROTHROMBIN TIME 10.5 secs (10.8-13.4)
[2019-09-26] MEDS ORDERED: SYN.05 GT (07:39)
[2019-09-26] MEDS ORDERED: FURO-572 GT (07:39)
[2019-09-26] MEDS ORDERED: FERR75LI22 PO (07:39)
--- NOTE | 2019-09-26 07:45 | NUR ---
PICTURES TAKEN, FILED ON CHART
--- NOTE | 2019-09-26 08:07 | NUR ---
Dr. Sanchez is evaluating the patient at bedside.
--- NOTE | 2019-09-26 08:50 | NUR ---
RECEIVED ON A SimpliVTAPE R860 VENTILATOR PLUGGED INTO RED OUTLET TOLERATING WELL WITHOUT ADVERSE REACTIONS NOTED TO A PORTEX DCT #8 AIRWAY CUFF PRESSURE CHECKED AMBU BAG AVAILABLE LOC AWAKE RSPONSIVE TO TRACHEAL STIMULUS GOODC CHEST RISE BREATH SOUNDS COARSE RHONCHI BILATERAL DEEP TRACHEAL SUCTION FOR MODERATE SEMI THICK PALE YELLOW SECRETIONS AIRWAY PATENT SATURATION 100% ON FIO2 OF 1005 TITRATED FIO2 TO 60% RANDA/FLACO NOTIFIED Addendum: 09/26/19 at 1058 by JADON GOODC = GOOD; 1005 = 100%
[2019-09-26] MEDS ORDERED: ONDANSETRON 4 MG/2 ML VIAL IM/IVP PRN (08:55)
[2019-09-26] MEDS ORDERED: ACETAMINOPHEN 325 MG TAB GT PRN (08:55)
[2019-09-26] MEDS ORDERED: DEXT 5% /NACL 0.9% 1,000 ML IV SCH (08:55)
[2019-09-26] MEDS ORDERED: HYDROcodone/APAP 7.5/325 MG 1 TAB GT PRN (08:55)
[2019-09-26] MEDS ORDERED: MORPHINE SULFATE 2 MG/ML SYR IVP PRN (08:55)
[2019-09-26] MEDS ORDERED: LORazepam 2 MG/ML VIAL IM/IVP PRN (08:55)
--- NOTE | 2019-09-26 09:01 | NUR ---
RT IS AT BEDSIDE.
[2019-09-26] MEDS ORDERED: DOCUSATE 100 MG/10 ML UDC GT SCH (09:05)
[2019-09-26] MEDS ORDERED: PANTOPRAZOLE 40 MG INJ VIAL IVP SCH (09:05)
[2019-09-26] MEDS ORDERED: WOUND CARE PREPARATION 178 ML SPR TP PRN (09:20)
[2019-09-26] MEDS ORDERED: Z-GUARD PASTE TP PRN (09:20)
[2019-09-26] MEDS ORDERED: FOAM DRESSING TP PRN (09:20)
[2019-09-26] MEDS ORDERED: NACL 0.9% IRR 250 ML BOTTLE IR PRN (09:20)
--- NOTE | 2019-09-26 09:30 | NUR ---
REPORT GIVEN TO ALEJANDRO SAM FOR CONTINUITY OF CARE
[2019-09-26 09:51] LABS: CHOL/HDL RATIO 2.8 (1-4.5); FREE T4 (FREE THYROXINE) 1.05 ng/dL (0.76-1.46); MAGNESIUM 3.2 mg/dL (1.8-2.4); PHOSPHORUS 5.3 mg/dL (2.5-4.9); THYROID STIMULATING HORMONE 6.4 uIU/mL (0.34-3.74)
--- NOTE | 2019-09-26 09:58 | NUR ---
COVID SWAB COLLECTED, PT TOLERATED WELL. LAB CALLED TO DISPATCHER CHIEF OIL SPECIMEN
[2019-09-26 10:00] LABS: LACTATE DEHYDROGENASE 167 U/L (85-227)
[2019-09-26] MEDS: LACTOBACILLUS RHAMNOSUS GG 1 EACH CAP GT SCH (10:23)
--- NOTE | 2019-09-26 10:24 | NUR ---
RT AT BEDSIDE
--- NOTE | 2019-09-26 10:57 | NUR ---
Shay jackson in ED - 09/26/19 at 1058 by MCACAROLINAA GOODC = GOOD; 1005 = 100%
--- NOTE | 2019-09-26 11:07 | NUR ---
PT RESTING IN BED, CALM, NO DISTRESS NOTED
[2019-09-26] MEDS ORDERED: ALBUTEROL SULFATE/IPRATROPIU 3 ML SOL IH PRN (11:15)
--- NOTE | 2019-09-26 11:40 | NUR ---
REVIEWED ABG SAMPLE REPORT AT 10:31 DECREASED RATE 12 BPM FIO2 TO 40% ALEJANDRO/RN NOTIFIED PATIENT RESTING WELL NO EVIDENCE OF RESPIRATORY DISTRESS NOTED GOOD CHEST RISE DEEP TRACHEAL SUCTION FOR LARGE THIN PALOMINO SECRETIONS AIRWAY PATENT SPUTUM CULTURE OBTAINED
--- NOTE | 2019-09-26 11:45 | NUR ---
RT AT BEDSIDE.
--- NOTE | 2019-09-26 11:45 | NUR ---
PT DROOLING SEROUSANGEOUS DRAINAGE FROM MOUTH. DR. OLIVEIRA MADE AWARE AND STATED "YA, I DONT KNOW WHAT TO DO WITH THAT"
[2019-09-26] MEDS ORDERED: PIPERACILLIN/TAZOBACTAM 3.375 GM VIAL IV ONE (11:54)
[2019-09-26] MEDS ORDERED: PIPERACILLIN/TAZOBACTAM 3.375 GM in DEXTROSE 5% 50 ML IV SCH (12:00)
[2019-09-26] MEDS ORDERED: LORazepam 2 MG/ML VIAL IVP PRN (12:35)
[2019-09-26] MEDS: Z-GUARD PASTE TP SCH (13:00)
[2019-09-26] MEDS ORDERED: ONDANSETRON 4 MG/2 ML VIAL IVP SCH (13:00)
[2019-09-26] MEDS: NACL 0.9% 1,000 ML IV SCH ×2 (13:29→21:54)
--- NOTE | 2019-09-26 13:30 | NUR ---
TOLERATING VENTILATOR SUPPORT WELL WITHOUT INCIDENT GOOD CHEST RISE DEEP TRACHEAL SUCTION FOR MODERATE THICK PALOMINO SECRETIONS WITH SCATTERED BLOOD STREAK SECRETIONS AIRWAY PATENT AIRWAY PATENT
--- NOTE | 2019-09-26 13:31 | NUR ---
RT AT BEDSIDE.
[2019-09-26] MEDS: ALBUTEROL SULFATE/IPRATROPIU 3 ML SOL IH SCH ×2 (13:43→19:00)
[2019-09-26] MEDS ORDERED: CALCIUM ACETATE 667 MG TAB GT SCH (15:00)
--- NOTE | 2019-09-26 15:16 | NUR ---
VSS. PT RESTING IN BED. RR EVEN AND UNLABORED.
--- NOTE | 2019-09-26 15:35 | NUR ---
PHARMACY CALLED FOR CALCIUM ACETATE TABLET.
[2019-09-26] MEDS ORDERED: LEVOTHYROXINE 0.05 MG TAB GT SCH (15:50)
--- NOTE | 2019-09-26 16:00 | NUR ---
TEMPORAL TEMP 100.8. BARE HUGGER TURNED OFF WILL CONTINUE TO MONITOR TEMPERATURE.
--- NOTE | 2019-09-26 16:04 | NUR ---
DR. DIAZ MADE AWARE OF PTS TEMPERATURE.
--- NOTE | 2019-09-26 16:43 | NUR ---
PATIENT TRANSFERRED FROM ER-11 TO ICU-2 PATIENT REMAINED ON THE VENTILATOR WITH SAME SETTINGS OXYGEN VIA E-TANK WITH ADEQUATE LEVEL 2000 PSI TOLERATED TRANSFER WITHOUT INCIDENT SATURATION 100% HR MID 80'S
--- NOTE | 2019-09-26 16:55 | NUR ---
Patient will be admitted to care of DR. LONG. Admited to ICU. Will go to BED 2. Belongings list completed. Report to FLACO HOROWITZ.
--- NOTE | 2019-09-26 16:55 | NUR ---
PT TRANSFERRED TO ICU PT REMAINS ON DOCUMENTED VENT SETTINGS. PT NOT IN ANY DISTRESS AT THIS TIME. TRACH REMAINS SECURE WITH A PATENT AIRWAY. VENT ALARMS ON AND FUNCTIONING.
--- NOTE | 2019-09-26 16:58 | NUR ---
PT ADMITTED FROM ER. PT AAOX0, IN STABLE CONDITION. SR ON HEART MONITOR. RESPIRATIONS EVEN AND UNLABORED ON TRACH TO VENT IN AC/VC MODE FIO2 40% TV 500 R 12 FLOW 30% PEEP 5, CRACKLES ON AUSCULTATION. LINK IN PLACE. G TUBE IN PLACE. IV SITE IN PLACE, FLUSHED PATENT AND ASYMPTOMATIC INFUSING PER ORDER IN L FOOT 22G AND L THUMB 24G. DROPLET PRECAUTIONS IN PLACE FOR R/O COVID-19. SKIN IS NON INTACT WITH SACRAL WOUND PRESENT. VITALS UPON ADMISSION HR 86, BP 93/65 O2 96% RR 12, NO PAIN. SAFETY MEASURES IN PLACE, WILL CONTINUE TO MONITOR CLOSELY.
[2019-09-26] MEDS: PIPERACILLIN/TAZOBACTAM 3.375 GM in DEXTROSE 5% 50 ML IV SCH ×2 (18:09→23:54)
[2019-09-26] MEDS: ACETAMINOPHEN 650 MG/20.3 ML UDC GT PRN ×2 (18:10→19:10)
--- NOTE | 2019-09-26 19:30 | NUR ---
WILL GIVE REPORT TO CARLENE ALTAMIRANO IN MST, PT IN STABLE CONDITION.
--- NOTE | 2019-09-26 19:50 | NUR ---
RECEIVED REPORT FORM IVAN HOMELAND SECURITY PROGRAM SPECIALIST NURSE FOR CONTINUITY OF CARE.
--- NOTE | 2019-09-26 19:54 | NUR ---
NO HHN TX GIVEN. PT IS BEING TRANSFERRED TO TELE. PT IS IN NO DISTRESS. WILL CONT TO MONITOR.
--- NOTE | 2019-09-26 19:57 | NUR ---
RECEIVED PT ON DOCUMENTED SETTINGS. PT IS BEING TRANSFER TO TELE. WILL TRANSFER CARE TO [facility]
--- NOTE | 2019-09-26 20:00 | NUR ---
PT TRANSFERRED TO 108B, PT INSTABLE CONDITION. HE IS AOX1, PT HAS REDNESS TO SACRAL AREA AND AN OPTIFOAM COVERAGE FOR PROTECTION. HE IS ON TRACH TO VENT CURRENT SETTINGS FOLLOWS: FIO2 40, MARGARET 30 VT 500 AND PEEP 5. PT RESPIRATIONS ASSISTED WITH VENT ARE EVEN AND UNLABORED, 02 98% WITH ALL CURRENT VENT SETTINGS PT WAS SUCTIONED X1. TRACH INTACT AND ASYMPTOMATIC. PT HAS 2 IV SITES LEFT FOOT 22G AND LEFT THUMB 24 G . PT LEFT FOOT FLUSHED AND IS RUNNING NORMAL SALINE AT 125. PT ALSO HAS A GT INTACT AND POSITIVE FOR PLACEMENT. ALL FALLS PRECAUTIONS IN PLACE.
--- NOTE | 2019-09-26 20:15 | NUR ---
PT V/S FOLLOWS: T 97.0 P 66 R 12 B/P 82/53 02 98% ON ALL CURRENT VENT SETTINGS. ALL FALLS, ASPIRATIONS AND SEIZURE PRECAUTIONS IN PLACE.
--- NOTE | 2019-09-26 20:30 | NUR ---
PT TRANSFERRED TO 108-B. VENT PLUGGED INTO RED OUTLET. BMV AT BEDSIDE. TRACH IS SECURED AND INTACT. PT IS IN NO DISTRESS. WILL CONT TO MONITOR
[2019-09-26] MEDS ORDERED: POLYVINYL ALCOHOL 1.4% OP 15 ML SOL OP SCH (21:00)
[2019-09-26] MEDS: POLYVINYL ALCOHOL 1.4% OP 15 ML SOL BOTH EYES SCH (21:00)
--- NOTE | 2019-09-26 21:00 | NUR ---
PT WAS TURNED AND REPOSITIONED. LINK CATHETER IN PLACE AND DRAINING CLEAR YELLOW URINE. TRACH IN PLACE AND 02 REMAINS AT 98% WITH ALL CURRENT VENT SETTINGS. PT SUCTIONED X1 AND ORAL CARE PROVIDED. PT GIVEN ALL DUE SCHEDULED MEDS VIA GT WHICH WAS FLUSHED PATENT.PT HOB UP 35%, GT FEEDING OF JEVITY 1.2 STARTED AND RUNNING AT 45MLS/HR AND 200MLS FLUSH Q 4HRS ORDERED. WILL MONITOR FOR RESIDUAL. ALL FALLS, SEIZURE AND ASPIRATION PRECAUTIONS IN PLACE.
[2019-09-26] MEDS ORDERED: CRUSHER, PILL MC ONE (21:43)
[2019-09-26] MEDS: FERROUS SULFATE 300 MG/5 ML UDC GT SCH (21:51)
[2019-09-26] MEDS: DOCUSATE 100 MG/10 ML UDC GT SCH (21:51)
[2019-09-26] MEDS: levETIRAcetam 100 MG/ML ORASYR GT SCH (21:52)
[2019-09-26] MEDS: ATORVASTATIN 20 MG TAB GT SCH (21:52)
[2019-09-26] MEDS: CYANOCOBALAMIN 100 MCG TAB GT SCH (21:53)
[2019-09-26] MEDS: SENNA 8.6 MG TAB GT SCH (21:53)
[2019-09-26] MEDS: ASCORBIC ACID 500 MG TAB GT SCH (21:54)
--- NOTE | 2019-09-26 23:45 | NUR ---
PT IN BED, HE WAS TURNED AND REPOSITIONED IN BED. PT 98% ON ALL CURRENT VENT SETTINGS, PT SUCTIONED X1 AND ORAL CARE PROVIDED. ZOSYN HUNG AND RUNNING AT 100MLS/HR. V/S FOLLOWS: T 97.5 P 59 R 13 B/P 90/57 02 IS 98% ON ALL CURRENT VENT SETTINGS. ALL ASPIRATIONS, SEIZURE AND FALLS PRECAUTIONS IN PLACE.
[2019-09-27] VITALS (7 sets, daily range): BP systolic 90–138; BP diastolic 57–86
[2019-09-27] MEDS: Z-GUARD PASTE TP SCH ×2 (01:00→12:25)
--- NOTE | 2019-09-27 01:55 | NUR ---
SPOKE WITH MD SHER WHO ORDERED A 2ND COVID TEST FOR PT. WILL SWAB PT FOR COVID LATER.
--- NOTE | 2019-09-27 03:35 | NUR ---
MITCHELL FROM LAB CALLED AND CRITICAL VALUE OF POSITIVE BLOOD CULTURE REPORTED GRAM POSITIVE COCCI IN BLOOD RESULTS REPORTED TO RESIDENT MD SHER, WILL ENDORSE TO AM TO FOLLOW UP.
[2019-09-27] MEDS ORDERED: LANSOPRAZOLE 30 MG CAPDR ONE (05:16)
--- NOTE | 2019-09-27 05:30 | NUR ---
PT WAS TURNED, CHANGED AND REPOSITIONED IN BED, SUCTION AND ORAL CARE PROVIDED. PT SACRAL WOUND CARE PROVIDED, LINENS CHANGED. JEVITY 1.2 RUNNING AT 45MLS/HR NO RESIDUAL NOTED. PT GIVEN ORDERED PREVACID AND ZOSYN HUNG AND RUNNING AT 100MLS/HR VIA LEFT FOOT. ALL ASPIRATION, FALS AND DROPLET PRECAUTIONS IN PLACE. 2ND COVID TEST DONE ON RIGHT NARE.
[2019-09-27] MEDS: NACL 0.9% 1,000 ML IV SCH ×3 (06:21→21:05)
[2019-09-27] MEDS: LANSOPRAZOLE 30 MG CAPDR GT SCH (06:23)
[2019-09-27] MEDS: PIPERACILLIN/TAZOBACTAM 3.375 GM in DEXTROSE 5% 50 ML IV SCH ×3 (06:23→18:40)
--- NOTE | 2019-09-27 07:20 | NUR ---
RECEIVED REPORT FROM NIGHT NURSE CARLENE. PATIENT IN STABLE CONDITION. PATIENT ON TRACH TO VENT. FIO2 40, VOL 500, FLOW 30, PEEP 5. PT AROUSABLE BY NAME OR TOUCH. RESPIRATIONS EVEN AND UNLABORED. SKIN WARM AND DRY TO TOUCH. IV INTACT AND PATENT TO LEFT FOOT WITH IVF NS INFUSING @ 125ML/HR AND LEFT THUMB SALINE LOCK. GT INTACT AND PATENT, WITH JEVITY INFUSING @ 45ML/HR. LIKN CATHETER IN PLACE DRAINING CLEAR YELLOW COLORED URINE. PLANS OF CARE DISCUSSED. BED IN LOW POSITION. BED ALARM ON. SAFETY MEASURES IN PLACE. CALL LIGHT WITHIN REACH.
[2019-09-27 07:39] LABS: BASOPHILS % (AUTO) 0.6 % (0.0-2.0); EOSINOPHILS # (AUTO) 0.2 K/uL (0-0.4); EOSINOPHILS % (AUTO) 3.3 % (0.0-4.0); HEMATOCRIT 28.3 % (36-52); HEMOGLOBIN 9.1 g/dL (12.0-18.0); LYMPHOCYTES # (AUTO) 0.8 K/uL (2.0-11.5); LYMPHOCYTES % (AUTO) 16.6 % (20.5-51.1); MEAN CORPUSCULAR HEMOGLOBIN 30 pg (27-31); MEAN CORPUSCULAR HGB CONC 32 g/dL (33-37); MEAN CORPUSCULAR VOLUME 94.4 fL (80-94); MONOCYTES # (AUTO) 0.5 K/uL (0.8-1.0); MONOCYTES % (AUTO) 9.7 % (1.7-9.3); NEUTROPHILS # (AUTO) 3.4 K/uL (1.8-7.7); NEUTROPHILS % (AUTO) 69.8 % (42.2-75.2); PLATELET COUNT (AUTO) 47 K/uL (140-450); RED CELL DISTRIBUTION WIDTH 16.6 % (11.6-13.7); WHITE BLOOD COUNT (AUTO) 4.9 K/uL (4.8-10.8)
[2019-09-27] MEDS: ALBUTEROL SULFATE/IPRATROPIU 3 ML SOL IH SCH ×3 (08:06→19:00)
--- NOTE | 2019-09-27 08:06 | NUR ---
RECEIVED ON A [employer] CARESCAPE R860 VENTILATOR PLUGGED INTO RED OUTLET TOLERATING WELL WITHOUT ADVERSE REACTIONS NOTED TO A PORTEX DCT #8 AIRWAY SECURED WITH A PORTEX TRACH TIE CUFF PRESSURE CHECKED NOTED AMBU BAG AT BEDSIDE LANAIMO RADICAL-7 CONTINUOS PULSE OXIMETER PLUGGED INTO RED OUTLET ON AND FUNCTIONING WELL ALARMS REVIEWED AND SET LOW SATURATION ALARM SET AT 92% LOC RESTING COMFORTABLY WITHOUT EVIDENCE OF PULMONARY DISTRESS NOTED GOOD EQUAL CHEST RISE DEEP TRACHEAL SUCTION FOR SMALL THIN PALE YELLOW SECRETINS AIRWAY PATENT SATURATION 100% ON FIO2 OF 40% POST HHN THERAPY TITRATED FIO2 TO 35% CLAU/RN NOTIFIED
--- NOTE | 2019-09-27 08:07 | NUR ---
PER RT PATIENT FIO2 IS NOW AT 35%. O2 SAT 98%.
[2019-09-27 08:11] LABS: FOLIC ACID 16.5 ng/mL (>3.0)
[2019-09-27 08:25] LABS: ALBUMIN 2.5 g/dL (3.4-5.0); ANION GAP 12.4 (8-16); CARBON DIOXIDE 29.5 mmol/L (21-32); CREATININE 1.5 mg/dL (0.6-1.3); MAGNESIUM 3.1 mg/dL (1.8-2.4); PHOSPHORUS 5.1 mg/dL (2.5-4.9); POTASSIUM 3.9 mmol/L (3.5-5.1); TOTAL BILIRUBIN 0.5 mg/dL (0.0-1.0)
[2019-09-27] MEDS: TIMOLOL OP 0.5% 5 ML BTL BOTH EYES SCH (08:31)
[2019-09-27] MEDS: ASPIRIN 81 MG TAB.CHEW GT SCH (08:32)
[2019-09-27] MEDS: LACTOBACILLUS RHAMNOSUS GG 1 EACH CAP GT SCH (08:32)
[2019-09-27] MEDS: ASCORBIC ACID 500 MG TAB GT SCH ×2 (08:32→23:02)
[2019-09-27] MEDS: DOCUSATE 100 MG/10 ML UDC GT SCH ×2 (08:32→23:00)
[2019-09-27] MEDS: MULTIVITAMIN 1 TAB GT SCH (08:33)
[2019-09-27] MEDS: DOXAZOSIN 2 MG TAB GT SCH (08:33)
[2019-09-27] MEDS: LEVOTHYROXINE 0.05 MG TAB GT SCH (08:33)
[2019-09-27] MEDS: levETIRAcetam 100 MG/ML ORASYR GT SCH ×2 (08:34→23:00)
[2019-09-27] MEDS: LISINOPRIL 5 MG TAB GT SCH (08:34)
[2019-09-27] MEDS: FERROUS SULFATE 300 MG/5 ML UDC GT SCH ×2 (08:35→23:00)
[2019-09-27] MEDS: FUROSEMIDE 40 MG/5 ML ORAL SOL UDC GT SCH (08:35)
--- NOTE | 2019-09-27 08:45 | NUR ---
PATIENT TRACH TO VENT. AM MEDICATIONS GIVEN VIA GT. RESIDUAL NOTED 10ML. INITIAL ASSESSMENT DONE. NO S/S OF DISTRESS NOTED.
[2019-09-27] MEDS ORDERED: TIMOLOL OP 0.5% 5 ML BTL OP SCH (09:00)
[2019-09-27] MEDS ORDERED: LEVOTHYROXINE 0.025 MG TAB GT SCH (09:00)
--- NOTE | 2019-09-27 09:47 | NUR ---
PATIENT HAS BEEN SCREENED AND CATEGORIZED HIGH NUTRITION RISK. PATIENT WILL BE SEEN WITHIN 1-2 DAYS OF ADMISSION. 09/27/2019-09/28/[address]
--- NOTE | 2019-09-27 11:45 | NUR ---
PATIENT IN BED, TRACH TO VENT IN PLACE. O2 SAT 98%. PT APHASIC, OPENS EYES BY NAME OR TOUCH. RESPIRATIONS EVEN AND UNLABORED. PATIENT REPOSITIONED FOR COMFORT. MOUTH CARE PROVIDED. LINK CATHETER IN PLACE, NOTED DRAINING WITH BLOOD TINGED URINE. WILL NOTIFY .
--- NOTE | 2019-09-27 11:58 | NUR ---
NO SOB NOTED GOOD CHEST RISE DEP TRACHEAL SUCTION FOR MODERATE THIN YELLOW SECRETIONS AIRWAY PATENT
--- NOTE | 2019-09-27 12:05 | NUR ---
DR. TRUJILLO MADE AWARE IN REGARDS TO PATIENT'S HEMATURIA AND PLATELET OF 47. NO ORDERS RECD. PER MD SHE WILL SEE PATIENT AT BEDSIDE.
--- NOTE | 2019-09-27 13:20 | NUR ---
DR. SOUTH AT BEDSIDE.
--- NOTE | 2019-09-27 13:33 | NUR ---
NO DISTRESS NOTED GOOD CHEST RISE DEEP TRACHEAL SUCTION FOR SMALL THIN YELLOW SECRETIONS AIRWAY PATENT SATURATION 98% ON FIO2 OF 35% POST HHN THERAPY TITRATED FIO2 TO 30% CLAU/RN NOTIFIED
--- NOTE | 2019-09-27 13:45 | NUR ---
PATIENT JEVITY RATE CHANGED TO 65ML/HR AND H2O FLUSH 50ML/HR Q4H PER MD ORDER. PATIENT TOLERATING FEEDING WELL. RT IS BEDSIDE. FIO2 CHANGED BY RT TO 30%. BED IN LOW POSITION AND SAFETY PRECAUTIONS IN PLACE.
[2019-09-27] MEDS ORDERED: VANCOMYCIN PER PHARMACY MC PRN (14:45)
--- NOTE | 2019-09-27 14:55 | NUR ---
ROUNDS MADE. PATIENT IN BED, APHASIC, TRACH TO VENT. NO S/S OF DISTRESS NOTED. SAFETY MEASURES IN PLACE.
--- NOTE | 2019-09-27 14:59 | NUR ---
09/27/2019 RD INITIAL ASSESSMENT COMPLETED PLEASE REFER TO NUTRITION ASSESSMENT UNDER CARE ACTIVITY FOR ESTIMATED NUTRITIONAL NEEDS. RD RECOMMENDATIONS: 1. RECOMMEND INCREASING JEVITY 1.2 TO 65 ML/HR TO OPTIMIZE NUTRITION INTAKE. -THIS WILL PROVIDE 1560 ML TOTAL VOLUME, 1872 KCAL, 87 GM PROTEIN, AND 1259 ML FREE WATER. 2. RECOMMEND DECREASING FREE WATER FLUSH TO 50 ML Q4H D/T PT WITH EDEMA OR PER MD. 3. CONTINUE MVI AND VITAMIN C TO PROMOTE WOUND HEALING. 4. RD WILL F/U 2-3 DAYS; HIGH RISK. MARY LOU TESFAYE RD
--- NOTE | 2019-09-27 15:25 | NUR ---
NO RESPIRATORY DISTRESS NOTED GOOD CHEST RISE AND AERATION THROUGHOUT BILATERAL LUNG GARCIA AIRWAY PATENT
[2019-09-27] MEDS: VANCOMYCIN 1,000 MG in DEXTROSE 5% 250 ML IV SCH (16:52)
--- NOTE | 2019-09-27 16:55 | NUR ---
PATIENT REPOSITIONED, IV VANCO STARTED. IV SITE PATENT. GTUBE FEEDING RUNNING AND NO COMPLICATIONS. TRACH TO VENT IN PLACE. BED IN LOW POSITION, SAFETY PRECAUTIONS IN PLACE.
--- NOTE | 2019-09-27 17:46 | NUR ---
NO DISTRESS NOTED GOOD CHEST RISE AND AERATION THROUGHOUT BILATERAL LUNG GARCIA AIRWAY PATENT
--- NOTE | 2019-09-27 19:04 | NUR ---
PATIENT CONTINUES TRACH TO VENT SETTINGS. LAYING IN BED WITH SAFETY PRECAUTIONS IN PLACE AND BED IN LOW POSITION. IV TO LEFT FOOT IS INTACT AND PATENT. PATIENT CONTINUES TO BE BRADYCARDIC ON TELE MONITOR. WILL ENDORSE TO NIGHT NURSE FOR CONTINUITY OF CARE. GTUBE PATENT, FEEDING RUNNING WITH NO ISSUES.
--- NOTE | 2019-09-27 19:30 | NUR ---
RECEIVED REPORT FORM GONZALO RN DAYSHIFT NURSE AT BEDSIDE FOR CONTINUITY OF CARE, PT IN STABLE CONDITION.
--- NOTE | 2019-09-27 20:00 | NUR ---
PT AOX1 FLACC-O WITH NO S/S OF PAIN OR DISTRESS NOTED. PT HAS LINK CATHETER IN PLACE WITH HEMATURIA AND SMALL TO MODERATE BLOOD CLOTS NOTED AROUND THE HEAD OF THE PENIS. URINE IS ALEXANDR RED . NO BLEEDING OUT OF ANUS OR MOUTH. PT WAS SUCTIONED AND MOUTH CARE PROVIDED AT BEDSIDE. PT GT INTACT WITH NO RESIDUAL AND RUNNING AT 65MLS/HR. IV SITE ON LEFT FOOT INTACT AND ASYMPTOMATIC AND RUNNING AT 125MLS HR OF N/S ORDERED. V/S FOLLOWS: T 98.1 P 43 R 12 B/P 138/86 02 98% ON ALL CURRENT VENT SETTINGS.
[2019-09-27] MEDS: POLYVINYL ALCOHOL 1.4% OP 15 ML SOL BOTH EYES SCH (21:00)
--- NOTE | 2019-09-27 21:00 | NUR ---
PT TURNED, AND REPOSITIONED IN BED.
--- NOTE | 2019-09-27 21:30 | NUR ---
PT GIVEN ALL DUE MEDS VIA GT TUBE. EDUCATION REGARDING MEDICATIONS PURPOSES PROVIDED AT BEDSIDE, PT UNABLE TO VERBALIZE UNDERSTANDING.
--- NOTE | 2019-09-27 23:00 | NUR ---
INFORMED MD HENDRIX REGARDING ALEXANDR BLEEDING OF THE URINE WELL ELEVATED B/P. PT WAS GIVEN NORCO PO/PRN FOR PAIN RELIEF DUE TO ELEVATED B/P. WILL CONTINUE TO MONITOR VITAL SIGNS. CONSULTED RT COOPER REGARDING PT ALRMS ON VENT . PT MADE COMFORTABLE IN BED AND ORAL CARE WAS GIVEN . ALL FALLS A, ASPIRATION AND DROPLET PRECAUTIONS IN PLACE.
[2019-09-27] MEDS: SENNA 8.6 MG TAB GT SCH (23:01)
[2019-09-27] MEDS: CYANOCOBALAMIN 100 MCG TAB GT SCH (23:01)
[2019-09-27] MEDS: ATORVASTATIN 20 MG TAB GT SCH (23:01)
[2019-09-28] VITALS: BP 148/87
--- NOTE | 2019-09-28 | NUR ---
TA SPRAGUE AND RUNNING ORDERED. V/S FOLLOWS: T 97.9 P 45 R 14 B/P 148/87 02 98% ON ALL VENT SETTINGS.
--- NOTE | 2019-09-28 00:40 | NUR ---
PT IN BED NO S/S OF PAIN OR DISTRESS NOTED V/S FOLLOWS: T 97.9 P 45 R 14 BP 148/87 02 98% ON ALL VENT SETTINGS.
[2019-09-28] MEDS: PIPERACILLIN/TAZOBACTAM 3.375 GM in DEXTROSE 5% 50 ML IV SCH ×5 (00:50→23:54)
[2019-09-28] MEDS: Z-GUARD PASTE TP SCH ×2 (01:00→13:07)
--- NOTE | 2019-09-28 01:30 | NUR ---
PT TURNED, CHANGED AND REPOSITIONED IN BED, ALSO PROVIDED ORAL CARE, NEW BAG OF NORMAL SALINE PROVIDED. ALL ORDERED PRECAUTIONS IN PLACE.
[2019-09-28 04:00] VITALS: BP 141/84
--- NOTE | 2019-09-28 04:32 | NUR ---
PT IN BED HE WAS TURNED, CHANGED AND REPOSITIONED IN BED. V/S FOLLOWS; T 98.5 P 43 R 14 B/P 02 100% ON VENT SETTINGS ALL FALLS, SEIZURE AND ASPIRATION PRECAUTIONS IN PLACE.
[2019-09-28] MEDS: NACL 0.9% 1,000 ML IV SCH ×2 (05:05→13:07)
--- NOTE | 2019-09-28 06:00 | NUR ---
TA SPRAGUE AND RUNNING ORDERED, PT GIVEN PREVACID VIA GT.
[2019-09-28] MEDS: LANSOPRAZOLE 30 MG CAPDR GT SCH (06:09)
--- NOTE | 2019-09-28 07:16 | NUR ---
RECEIVED BEDSIDE REPORT FROM PM NURSE FOR CONTINUITY OF CARE. PATIENT IS AWAKE. APHASIC DUE VENTILATED. RESPIRATIONS EVEN AND UNLABORED, TRACH TO VENT. FIO2 30, PEEP 5, TV 500, PEAK 32. VISIBLE CHEST RISE AND FALL NOTED. ON TELE MONITORING. HR IS 40 BMP AT THIS TIME. ABDOMEN SOFT AND NONTENDER. G-TUBE FEEDING RUNNING JEVITY 1.2 AT 65 ML/HR, H2O FLUSH 50 ML Q4H. SKIN WARM, DRY, AND INTACT. SACRAL REDNESS, OPTIFOAM DRESSING INTACT. LINK CATHETER WITH 200 ML URINE IN THE LINK BAG, HEMATURIA. BED BOUND. FALL PRECAUTION. BED IN LOW POSITION. CALL LIGHT IS WITHIN REACH. WILL CONTINUE TO MONITOR.
[2019-09-28] MEDS: ALBUTEROL SULFATE/IPRATROPIU 3 ML SOL IH SCH ×3 (07:18→19:45)
--- NOTE | 2019-09-28 07:18 | NUR ---
RECEIVED ON A [employer] CARESCAPE R860 VENTILATOR PLUGGED INTO RED OUTLET TO A PORTEX DCT #8 AIRWAY SECURED WITH A SILVIA TRACH TIE CUFF PRESSURE CHECKED NOTED LING BOWMAN-Slava CONTINUOS PULSE OXIMETER AT BEDSIDE ON AND FUNCTIONING WELL LOW SATURATION ALARM SET AT 92% AMBU BAG AT BEDSIDE LOC QUIET RESPONSIVE TO SUCTION STIMULUS BRADYCARDIC STATUS 40 BPM OR LESS FRANCI/DAY RN AWARE GOOD CHEST RISE DEEP TRACHEAL SUCTION FOR MODERATE THICK PALE YELLOW SECRETIONS AIRWAY PATENT
[2019-09-28 07:34] LABS: BASOPHILS % (AUTO) 0.4 % (0.0-2.0); EOSINOPHILS # (AUTO) 0.2 K/uL (0-0.4); HEMATOCRIT 25.8 % (36-52); HEMOGLOBIN 8.4 g/dL (12.0-18.0); LYMPHOCYTES # (AUTO) 0.6 K/uL (2.0-11.5); LYMPHOCYTES % (AUTO) 19.3 % (20.5-51.1); MEAN CORPUSCULAR HEMOGLOBIN 30 pg (27-31); MEAN CORPUSCULAR HGB CONC 32 g/dL (33-37); MEAN CORPUSCULAR VOLUME 93.8 fL (80-94); MONOCYTES # (AUTO) 0.3 K/uL (0.8-1.0); MONOCYTES % (AUTO) 9.6 % (1.7-9.3); NEUTROPHILS % (AUTO) 64.7 % (42.2-75.2); RED BLOOD CELL COUNT(AUTO) 2.75 MIL/uL (4.20-6.10); RED CELL DISTRIBUTION WIDTH 16.3 % (11.6-13.7); WHITE BLOOD COUNT (AUTO) 3.1 K/uL (4.8-10.8)
[2019-09-28 07:47] LABS: ANION GAP 13.1 (8-16); CARBON DIOXIDE 27.1 mmol/L (21-32); CREATININE 1.3 mg/dL (0.6-1.3); POTASSIUM 4.2 mmol/L (3.5-5.1)
[2019-09-28 08:00] VITALS: BP 133/85
[2019-09-28 08:00] LABS: MAGNESIUM 2.8 mg/dL (1.8-2.4); PHOSPHORUS 4.7 mg/dL (2.5-4.9)
[2019-09-28 08:07] LABS: PLATELET COUNT (AUTO) 40 K/uL (140-450)
[2019-09-28] MEDS: ASPIRIN 81 MG TAB.CHEW GT SCH (09:00)
[2019-09-28] MEDS: DOXAZOSIN 2 MG TAB GT SCH (09:01)
[2019-09-28] MEDS: ASCORBIC ACID 500 MG TAB GT SCH ×2 (09:01→21:13)
[2019-09-28] MEDS: LEVOTHYROXINE 0.05 MG TAB GT SCH (09:01)
[2019-09-28] MEDS: FERROUS SULFATE 300 MG/5 ML UDC GT SCH ×2 (09:02→21:11)
[2019-09-28] MEDS: LISINOPRIL 5 MG TAB GT SCH (09:02)
[2019-09-28] MEDS: MULTIVITAMIN 1 TAB GT SCH (09:02)
[2019-09-28] MEDS: LACTOBACILLUS RHAMNOSUS GG 1 EACH CAP GT SCH (09:02)
[2019-09-28] MEDS: FUROSEMIDE 40 MG/5 ML ORAL SOL UDC GT SCH (09:03)
[2019-09-28] MEDS: DOCUSATE 100 MG/10 ML UDC GT SCH ×2 (09:03→21:11)
[2019-09-28] MEDS: levETIRAcetam 100 MG/ML ORASYR GT SCH ×2 (09:04→21:11)
[2019-09-28] MEDS: VANCOMYCIN 1,000 MG in DEXTROSE 5% 250 ML IV SCH (09:04)
--- NOTE | 2019-09-28 09:10 | NUR ---
RESTING WELL NO EVIDENCE OF RESPIRATORY DISTRESS NOTED EQUAL CHEST RISE DEEP TRACHEAL SUCTION FOR MODERATE SEMI THICK YELLOW SECRETIONS AIRWAY PATENT
--- NOTE | 2019-09-28 09:10 | NUR ---
GIVEN MORNING MEDICATIONS VIA GT. GASTRIC RESIDUAL OF 5 ML. PATIENT IS TOLERATING THE FEEDING WELL. EXPLAINED MEDICATION. DARCIE DONTAE VIA IVPB. DARCIE NEW G-TUBE FEEDING OF JEVITY 1.2 AT A RATE OF 65 ML/HR, H2O FLUSH OF 50 ML Q4H. PATIENT OPEN EYES. [id number]. NO SIGNS OF DISTRESS NOTED. BED IN LOW POSITION. CALL LIGHT IS WITHIN REACH. WILL CONTINUE TO MONITOR. Addendum: 09/28/19 at 0933 by Princess Chloe Nunez RN HELD ASPIRIN. PLATELET IS 40. SIGNS OF HEMATURIA PRESENTING
[2019-09-28] MEDS: TIMOLOL OP 0.5% 5 ML BTL BOTH EYES SCH (09:28)
--- NOTE | 2019-09-28 10:51 | NUR ---
PATIENT IS SLEEPING. O2SAT 99%, HR 43. TRACH TO VENT. BED IN LOW POSITION. CALL LIGHT IS WITHIN REACH. WILL CONTINUE TO MONITOR.
--- NOTE | 2019-09-28 11:11 | NUR ---
ORAL CARE GIVEN. PATIENT TOLERATED WELL. NO SIGNS OF DISTRESS NOTED. BED IN LOW POSITION. CALL LIGHT IS WITHIN REACH. WILL CONTINUE TO MONITOR.
--- NOTE | 2019-09-28 11:45 | NUR ---
DARCIE CHAPPELL VIA IVPB. EXPLAINED MEDICATION. PATIENT ASLEEP. O2SAT 99%, HR 42 ON THE MONITOR. BED IN LOW POSITION. CALL LIGHT IS WITHIN REACH. WILL CONTINUE TO MONITOR.
--- NOTE | 2019-09-28 11:58 | NUR ---
NO APPARENT DISTRESS NOTED GOOD CHEST RISE TRACHEAL SUCTION WITH NO SECRETION RETURN AIRWAY PATENT
[2019-09-28 12:00] VITALS: BP 132/86
--- NOTE | 2019-09-28 12:37 | NUR ---
BLOOD-TINGED URINE FLOWING DOWN THE LINK CATHETER. CARETAKER ASSISTING PATIENT OF THIS MOMENT.
--- NOTE | 2019-09-28 13:07 | NUR ---
WOUND CARE ASSESSMENT DONE. CLEANSED WOUND WITH NS, PAT DRIED, APPLIED Z-GUARD AROUND THE WOUND AND GROIN AREA. OPTIFOAM DRESSING APPLIED. PATIENT TOLERATED ACTIVITY WELL. REPOSITIONED TO LEFT LATERAL. BLOOD-TINGED URINE IN THE LINK CATHETER BAG. TRACH TO VENT. NO SIGNS OF RESPIRATORY DISTRESS NOTED. BED IN LOW POSITION. CALL LIGHT IS WITHIN REACH. WILL CONTINUE TO MONITOR.
--- NOTE | 2019-09-28 13:17 | NUR ---
HUNG NEW NS BAG, RUNNING AT 125 ML/HR. NO SIGNS OF IV INFILTRATION. WILL CONTINUE TO MONITOR
--- NOTE | 2019-09-28 14:00 | NUR ---
DR. Chelsey DONALDSON AND RT AT BEDSIDE.
[2019-09-28] MEDS: ALBUMIN HUMAN 25% 50 ML IV SCH ×2 (14:50→21:13)
--- NOTE | 2019-09-28 14:57 | NUR ---
HUNG ALBUMIN VIA IVPB PER MD ORDER. EXPLAINED MEDICATION. PATIENT IS AWAKE, EYES OPEN. TRACH TO VENT. NO SIGNS OF RESPIRATORY DISTRESS. WILL CONTINUE TO MONITOR.
--- NOTE | 2019-09-28 15:58 | NUR ---
RESTING WELL NO DISTRESS NOTED GOOD CHEST RISE NO SUCTIONING AT THIS TIME TACK COVERER MONITOR
[2019-09-28 16:00] VITALS: BP 131/83
--- NOTE | 2019-09-28 16:03 | NUR ---
RECEIVED A CALL FROM LAB REPORTING MDRO OF THE URINE, MORGANELLA MORGANII. CHARGE NURSE AWARE Addendum: 09/28/19 at 1609 by Princess Chloe Nunez RN DR. BRANNON GRIFFITHS
--- NOTE | 2019-09-28 17:36 | NUR ---
NO APPARENT SOB NOTED GOOD CHEST RISE DEEP TRACHEAL SUCTION FOR SMALL THIN YELLOW SECRETIONS AIRWAY PATENT
--- NOTE | 2019-09-28 17:51 | NUR ---
PLACED ON CONTACT PRECAUTION FOR MDRO URINE. CHARGE NURSE AWARE
--- NOTE | 2019-09-28 18:03 | NUR ---
DARCIE CHAPPELL VIA IVPB. EXPLAINED MEDICATION. TRACH TO VENT - NO RESPIRATORY DISTRESS NOTED. BED IN LOW POSITION. CALL LIGHT IS WITHIN REACH. WILL CONTINUE TO MONITOR
--- NOTE | 2019-09-28 19:18 | NUR ---
ENDORSED PATIENT TO THE LIGHTHOUSE KEEPER NURSE FOR CONTINUITY OF CARE. PATIENT IS IN STABLE CONDITION. NO SIGNS OF RESPIRATORY DISTRESS.
--- NOTE | 2019-09-28 19:19 | NUR ---
REPORT RECEIVED FROM AM NURSE AT BEDSIDE. PT IN STABLE CONDITION BUT PT IS BRADYCARDIAC IN THE LOWER AND MID 40S. AAOX1 TO SELF. BOARD UPDATED. FLACC 0. NO SOB ON MECHANICAL VENT. VENT SETTINGS AC V/C FIO2@30%, VT 500, RR 12, PEEP 5, O2 SAT 99%. PT HAS LINK. SZ PRECAUTION. PT HAS SPO2 MONITOR. PT HAS GTUBE AND GTUBE FEEDING JEVITY@65ML/HR WITH 50ML H20 FLUSH Q4H PATENT AND INTACT. PT IS BEDBOUND. IV SITE L FOOT 22G RUNNING NS@125ML/HR PATENT AND INTACT. SKIN WARM, DRY, AND INTACT WITH NO OPEN WOUNDS BUT REDNESS ON THE BUTTOCKS. BED LOCKED IN LOW POSITION. CALL MALLORY WITHIN REACH. SAFETY PRECAUTION IN PLACE. ALL NEEDS MET AT THIS TIME.
[2019-09-28 20:00] VITALS: BP 137/95
[2019-09-28] MEDS: POLYVINYL ALCOHOL 1.4% OP 15 ML SOL BOTH EYES SCH (21:10)
[2019-09-28] MEDS: SENNA 8.6 MG TAB GT SCH (21:11)
[2019-09-28] MEDS: ATORVASTATIN 20 MG TAB GT SCH (21:11)
--- NOTE | 2019-09-28 21:11 | NUR ---
ARTIFICIAL TEARS APPLIED TO BOTH EYES. COLACE, FERROUS SULFATE, KEPPRA, LIPITOR, SENNA, VITAMIN B12, AND VITAMIN C GIVEN THROUGH GTUBE. ALBUMIN HUNG AND RUNNING. LASIX GIVEN IVP. PT TOLERATED WELL. ORAL CARE DONE. PT SUCTIONED.
[2019-09-28] MEDS: FUROSEMIDE 20 MG/2 ML VIAL IVP SCH (21:13)
[2019-09-28] MEDS: CYANOCOBALAMIN 100 MCG TAB GT SCH (21:13)
--- NOTE | 2019-09-28 22:30 | NUR ---
CNAS CLEANING PT. NOTICED BLACK TARRY STOOL. NOTIFIED. NO CHANGE IN ORDERS.
--- NOTE | 2019-09-28 23:54 | NUR ---
TA HUNG AND RUNNING. PT TOLERATING WELL.
[2019-09-29] VITALS (7 sets, daily range): BP systolic 51–163; BP diastolic 58–103
[2019-09-29] MEDS: Z-GUARD PASTE TP SCH ×3 (01:20→13:18)
[2019-09-29] MEDS: NACL 0.9% 1,000 ML IV SCH ×4 (02:44→21:05)
[2019-09-29 03:05] LABS: EOSINOPHILS # (AUTO) 0.3 K/uL (0-0.4); LYMPHOCYTES # (AUTO) 0.7 K/uL (2.0-11.5); MONOCYTES # (AUTO) 0.6 K/uL (0.8-1.0); PLATELET COUNT (AUTO) 31 K/uL (140-450)
[2019-09-29 03:14] LABS: ANION GAP 10.4 (8-16); CREATININE 1.2 mg/dL (0.6-1.3); POTASSIUM 4.4 mmol/L (3.5-5.1)
[2019-09-29 03:15] LABS: BASOPHILS % (AUTO) 0.3 % (0.0-2.0); EOSINOPHILS % (AUTO) 5.3 % (0.0-4.0); HEMOGLOBIN 8.3 g/dL (12.0-18.0); LYMPHOCYTES % (AUTO) 13.8 % (20.5-51.1); MEAN CORPUSCULAR HEMOGLOBIN 31 pg (27-31); MEAN CORPUSCULAR HGB CONC 33 g/dL (33-37); MEAN CORPUSCULAR VOLUME 94.7 fL (80-94); MONOCYTES % (AUTO) 12.1 % (1.7-9.3); NEUTROPHILS # (AUTO) 3.4 K/uL (1.8-7.7); NEUTROPHILS % (AUTO) 68.5 % (42.2-75.2); RED BLOOD CELL COUNT(AUTO) 2.65 MIL/uL (4.20-6.10); RED CELL DISTRIBUTION WIDTH 16.4 % (11.6-13.7); WHITE BLOOD COUNT (AUTO) 4.9 K/uL (4.8-10.8)
[2019-09-29 03:22] LABS: MAGNESIUM 2.6 mg/dL (1.8-2.4); PHOSPHORUS 4.2 mg/dL (2.5-4.9)
[2019-09-29] MEDS: VANCOMYCIN 1,000 MG in DEXTROSE 5% 250 ML IV SCH (03:43)
--- NOTE | 2019-09-29 03:43 | NUR ---
DONTAE SPRAGUE AND CAREY.
--- NOTE | 2019-09-29 04:00 | NUR ---
ORAL CARE DONE. LINK CARE DONE.
[2019-09-29] MEDS: ALBUMIN HUMAN 25% 50 ML IV SCH ×2 (05:00→13:17)
[2019-09-29] MEDS: PIPERACILLIN/TAZOBACTAM 3.375 GM in DEXTROSE 5% 50 ML IV SCH ×3 (05:00→18:00)
--- NOTE | 2019-09-29 05:00 | NUR ---
TA HUNG AND RUNNING. PT TOLERATING WELL.
--- NOTE | 2019-09-29 05:35 | NUR ---
ALBUMIN HUNG AND RUNNING. PT TOLERATING WELL. Addendum: 09/29/19 at 0543 by Manny Massey RN PREVACID GIVEN THROUGH GTUBE.
[2019-09-29] MEDS: LANSOPRAZOLE 30 MG CAPDR GT SCH (05:36)
--- NOTE | 2019-09-29 07:07 | NUR ---
REPORT GIVEN TO AM NURSE AT BEDSIDE. PT IN STABLE CONDITION.
--- NOTE | 2019-09-29 07:08 | NUR ---
RECEIVED BEDSIDE REPORT FROM PM NURSE FOR CONTINUITY OF CARE. PATIENT IS AWAKE. APHASIC DUE TO VENTILATED. RESPIRATIONS EVEN AND UNLABORED, TRACH TO VENT. FIO2 30, PEEP 5, TV 500, PEAK 32. VISIBLE CHEST RISE AND FALL NOTED. ON TELE MONITORING. HR IS 52 BMP AT THIS TIME. ABDOMEN SOFT AND NONTENDER. G-TUBE FEEDING RUNNING JEVITY 1.2 AT 65 ML/HR, H2O FLUSH 50 ML Q4H. SKIN WARM, DRY, AND INTACT. SACRAL REDNESS/PRESSURE, OPTIFOAM DRESSING INTACT. LINK CATHETER WITH 150 ML URINE IN THE LINK BAG, HEMATURIA. BED BOUND. FALL AND SZ PRECAUTIONS IN PLACE. CONTACT PRECAUTION FOR MDRO URINE. BED IN LOW POSITION. CALL LIGHT IS WITHIN REACH. WILL CONTINUE TO MONITOR.
[2019-09-29] MEDS: ALBUTEROL SULFATE/IPRATROPIU 3 ML SOL IH SCH ×3 (07:39→19:38)
--- NOTE | 2019-09-29 07:39 | NUR ---
RECEIVED ON A [employer] CARESCAPE R860 VENTILATOR PLUGGED INTO RED OUTLET TOLERATING WELL WITHOUT ADVERSE REACTIONS NOTED TO A PORTEX DCT #8 AIRWAY SECURED WITH A SILVIA TRACH TIE CUFF PRESSURE CHECKED NOTED LING RADICAL-7 CONTINUOS PULSE OXIMETER AT BEDSIDE PLUGGED INTO RED OUTLET ON AND FUNCTIONING WELL LOW SATURATION ALARM SET AT 92% SATURATION 97% ON FIO2 OF 30% POST HHN THERAPY TITRATED FIO2 TO 28% FRANCI/RN NOTIFIED AMBU BAG AT BEDSIDE LOC RESTING WELL WITHOUT EVIDENCE OF SOB NOTED GOOD CHEST RISE DEEP TRACHEAL SUCTION FOR MODERATE SEMI THICK PALE YELLOW WITH BLOOD TINGE SECRETIONS OROPHARYNGEAL SUCTION FOR COPIOUS CLOUDY WITH BLOOD TINGE PLUS SCATTERED SMALL THICK YELLOW SECRETIONS AIRWAY PATENT
--- NOTE | 2019-09-29 07:57 | NUR ---
PER COLLEEN RESP THERAPIST, FIO2 IS NOW 20%. O2SAT 98%, HR 52. Addendum: 09/29/19 at 0924 by Princess Chloe Nunez RN 28% NOT 20%. ANDI
[2019-09-29] MEDS: ASPIRIN 81 MG TAB.CHEW GT SCH (09:00)
[2019-09-29] MEDS: MULTIVITAMIN 1 TAB GT SCH (09:03)
[2019-09-29] MEDS: ASCORBIC ACID 500 MG TAB GT SCH ×2 (09:03→20:10)
[2019-09-29] MEDS: LACTOBACILLUS RHAMNOSUS GG 1 EACH CAP GT SCH (09:03)
[2019-09-29] MEDS: LEVOTHYROXINE 0.05 MG TAB GT SCH (09:03)
[2019-09-29] MEDS: FERROUS SULFATE 300 MG/5 ML UDC GT SCH ×2 (09:04→20:08)
[2019-09-29] MEDS: DOCUSATE 100 MG/10 ML UDC GT SCH ×2 (09:04→20:09)
[2019-09-29] MEDS: levETIRAcetam 100 MG/ML ORASYR GT SCH ×2 (09:04→20:08)
[2019-09-29] MEDS: DOXAZOSIN 2 MG TAB GT SCH (09:04)
--- NOTE | 2019-09-29 09:04 | NUR ---
GIVEN MORNING MEDICATIONS VIA GTUBE. GASTRIC RESIDUAL 5ML. LASIX IVP. EXPLAINED MEDICATIONS. PATIENT IS AWAKE, EYES OPENED. BED IN LOW POSITION. CALL LIGHT IS WITHIN REACH. WILL CONTINUE TO MONITOR. Addendum: 09/29/19 at 0942 by Princess Chloe Nunez RN HELD ASPIRIN. LOW PLATELET OF 31.
[2019-09-29] MEDS: FUROSEMIDE 20 MG/2 ML VIAL IVP SCH ×2 (09:05→20:09)
--- NOTE | 2019-09-29 09:22 | NUR ---
DEEP SUCTIONED. NO SECRETIONS OUT. ORAL CARE GIVEN. YANKER SUCTIONED NOSE D/T GREEN, THICK DISCHARGE COMING OUT. PATIENT TOLERATED WELL. O2SAT 99%, HR 60.
[2019-09-29] MEDS: LISINOPRIL 5 MG TAB GT SCH (09:31)
[2019-09-29] MEDS: TIMOLOL OP 0.5% 5 ML BTL BOTH EYES SCH (09:37)
--- NOTE | 2019-09-29 09:48 | NUR ---
PHYSICAL THERAPIST AT BEDSIDE
--- NOTE | 2019-09-29 10:03 | NUR ---
NO DISTRESS NOTED GOOD CHEST RISE DEEP TRACHEAL SUCTION FOR MODERATE THICK YELLOW WITH BLOOD TINGE SECRETIONS OROPHARYNGEAL SUCTION FOR COPIOUS CLOUDY WITH BLOOD TINGE SECRETIONS PLUS SCATTERED BLOOD CLOTS AIRWAY PATENT
--- NOTE | 2019-09-29 11:12 | NUR ---
DARCIE CHAPPELL VIA IVPB. EXPLAINED MEDICATION. BED IN LOW POSITION. CALL LIGHT IS WITHIN REACH. NO SIGNS OF RESPIRATORY DISTRESS PRESENTING
--- NOTE | 2019-09-29 11:30 | NUR ---
GOOD CHEST RISE DEEP TRACHEAL SUCTION FOR COPIOUS THICK CLOUDY TO PALE YELLOW WITH BLOOD STREAKED SECRETIONS AIRWAY PATENT WOUND CARE/RN AND FRANCI/RN REQUEST CANINE SERVICE INSTRUCTOR TRAINER ASSIST/STANDBY DURING WOUND CARE ASSESS AND TREAT PLUS PATIENT HYGIENE AND REPOSITION
--- NOTE | 2019-09-29 11:49 | NUR ---
REPOSITIONED PATIENT. WOUND CARE NURSE, HARMONY AND COLLEEN RT AT BEDSIDE. WOUND CARE AND LINK CATHETER CARE DONE. PATIENT TOLERATED WELL. BIG CLOTS ON CHUCKS NOTED. LEFT THIGH FELT RIGID. ABDOMEN RIGID AND ROUND. BLOOD-TINGED URINE DRAINING DOWN THE LINK BAG. NO SIGNS OF DISTRESS NOTED. WILL CONTINUE TO MONITOR.
--- NOTE | 2019-09-29 12:05 | NUR ---
WOUND CARE EVALUATION NOTE: REASON FOR EVALUATION: LOW MARISELA SCALE AND SACRAL WOUNDS SKIN ASSESSMENT DONE WITH THIS 69Y/O MALE PT [place] [facility] [place] [facility] WITH INITIAL DX OF BRADYCARDIA. PT. ADMITTED WITH PRESSURE ULCER TO [facility]. PAST MEDICAL HX INCLUDES CHRONIC RESPIRATORY FAILURE WITH TRACH DEPENDENCE, CEREBELLAR CVA, DYSPHASIA WITH G-TUBE DEPENDENCE, HYPERTENSION, ANEMIA, EPILEPSY, GERD, GLAUCOMA AND BPH WITH OBSTRUCTIVE UROPATHY. ALL ABOVE INFORMATION OBTAINED FROM ADMISSION H&P. PT IS AWAKE. SKIN IS WARM AND DRY, BLE FEW HAIR GROWTH, TRACE EDEMA. DORSAL PEDAL PULSES PRESENT AND NORMAL. UNABLE TO ASSESS DUE TO THICK FUNGAL LIKED NAILS. INCONTINENT OF BOWEL X1 DURING ASSESSMENT. F/C PATENT WITH LARGE AMOUNT OF BLOOD CLOT AND HEMATURIA OBSERVED COMING OUT OF URETHRA. PRIMARY RN AT BED SIDE AND AWARE OF CONDITION. PLAN OF CARE DISCUSSED WITH PRIMARY RN. INTEGUMENTARY: -TRACH SITE PARMJIT STOMA WITH SKIN INTACT. -MID ABD. GT SITE PARMJIT STOMA WITH SKIN INTACT. -INCONTINENT ASSOCIATE DERMATITIS (IAD) TO: B/L GROINS EXTENDED TO PERINEUM, SKIN REDNESS -PRESSURE ULCER INJURY STAGE 2, SACROCOCCYX 2X4 CM, SUPERFICIAL DEPTH, PARMJIT-WOUND SKIN MOIST, NO ODOR, SURROUNDING REDNESS INDICATED FURTHER DAMAGE -RIGHT AND LEFT HEELS DRY THIN CALLUSES RECOMMENDATIONS: -APPLY Z-GUARD TO R/L GROINS EXTENDED TO PERINEUM BID AND PRN IF SOILING -CLEANSE SACRALCOCCYX WITH NS, PAT DRY AND APPLY Z GUARD COVER WITH FORM DRESSING TO SACROCOCCYX DAILY AND PRN IF SOILING PREVENTION -OFFLOAD BILATERAL HEELS BY PLACING PILLOWS UNDER CALVES UNLESS OTHERWISE CONTRAINDICATED -PRESSURE REDISTRIBUTION SURFACE THERAPY -TURN AND REPOSITION Q2H, OFFLOAD SACRALCOCCYX AND BUTTOCKS BY TURNING RIGHT AND LEFT -CONTINUE TO FOLLOW RD RECOMMENDATIONS ALL ABOVE RECOMMENDATIONS DISCUSSED WITH PRIMARY RN. PLEASE CONTACT WOUND CARE NURSE FOR ANY QUESTION AND CHANGE OF WOUND CONDITION.
--- NOTE | 2019-09-29 12:45 | NUR ---
OPERATION SHIFT SUPERVISOR NOTE: Basic Screen: Yes High Risk DC Screen [place]: FARIBA FRANCO Home Relationship: SON Pre-Admission Living Arrangements: SNF Other: [facility] Prior ADL Total/Dependent Current Home Health Name/Tel: N/A Current DME/02 Name/Tel: N/A Current Hospice Name/Tel: N/A Current Dialysis Name/Tel: N/A Healthcare Decision Maker: Next of Kin Other: FARIBA FRANCO Advance Directive No Physician Orders for Life Sustaining Treatment Form No Patient/Family Have Educational Needs No Discipline: Case Mgt/Social Svcs Tentative Discharge Plan/Destination: SNF/ECF Other: [facility] Will require assistance post discharge: No Referred to Photogrammetric Compilation Specialist: No Tentative Discharge Plan Summary: PATIENT IS A 69-YEAR-OLD MALE ADMITTED FOR BRADYCARDIA AND UTI. PATIENT HAS PMHX OF CHRONIC RESPIRATORY FAILURE W/ TRACH DEPENDENCE, CEREBELLAR HEMORRHAGIC DYSPHAGIA W/ GTUBE, HYPERTENSION, ANEMIA, CVA, EPILEPSY, GERD, GLAUCOMA. PATIENT WAS ADMITTED FROM [facility]. SW CONTACTED RASHI FROM [facility] [phone]. PER RASHI, PATIENT IS FDC AND IS ON A BED HOLD. RASHI STATED THAT PATIENT IS NOT ALERT/ORIENTED AT BASELINE AND REQUIRES TOTAL ASSISTANCE WITH ALL ADLS. TENTATIVE DISCHARGE PLAN IS FOR PATIENT TO RETURN TO [facility]. NO FURTHER NEEDS IDENTIFIED. Signature: RAMILA RAMSEY Date: Sep 29, 2019 Time: 12:44
--- NOTE | 2019-09-29 12:53 | NUR ---
APPLIED HEEL PROTECTOR TO [facility] HEELS.
[2019-09-29] MEDS ORDERED: Z-GUARD PASTE TP SCH (13:00)
--- NOTE | 2019-09-29 13:18 | NUR ---
HUNG ALBUMIN PER MD ORDER. HUNG NEW NS BAG AT A RATE OF 125 ML/HR. NO SIGNS OF IV INFILTRATION NOTED. HUNG NEW G-TUBE FEEDING JEVITY 1.2 AT A RATE OF 65 ML/HR, H2O FLUSH 50 ML Q4H. GASTRIC RESIDUAL OF 10 ML. TOLERATING FEEDING WELL. MOUTH CARE DONE. PATIENT TOLERATED WELL. BED IN LOW POSITION. CALL LIGHT IS WITHIN REACH. WILL CONTINUE TO MONITOR.
--- NOTE | 2019-09-29 13:56 | NUR ---
DC PLANNIN YRS OLD MALE PATIENT [place] [facility] [place] DX OF BRADYCARDIA AND UTI. PT HAS A HX OF CHRONIC RESP FAILURE WITH TRACH DEPENDENCE, CVA, DYSPHAGIA WITH G-TUBE. CXR SHOWED CHF WITH SMALL BILATERAL PLEURAL EFFUSION, POSSIBLE PNEUMONIA. CONSULTED WITH PULM AND BOILER WASHER. COVID TEST ,BLOOD URINE AND SPUTUM CULTURE PENDING. STARTED ON IVF, IV ABX ROCEPHIN AND ZOSYN. DC PLAN TO GO BACK TO [facility] WHEN STABLE. CM TO FOLLOW.
--- NOTE | 2019-09-29 15:48 | NUR ---
PATIENT IS SLEEPING AT THIS TIME. NO SIGNS OF RESPIRATORY DISTRESS. TRACH TO VENT. O2SAT 97%. HR 68. BED IN LOW POSITION. CALL LIGHT IS WITHIN REACH. WILL CONTINUE TO MONITOR
--- NOTE | 2019-09-29 16:03 | NUR ---
NO EVIDENCE OF RESPIRATORY DISTRESS NOTED EQUAL CHEST RISE DEEP TRACHEAL SUCTION FOR MODERATE FROTH PALOMINO SECRETIONS OROPHARYNGEAL SUCTION FOR LARGE CLOUDY WITH SCATTERED BLOOD CLOTS AIRWAY PATENT
--- NOTE | 2019-09-29 16:27 | NUR ---
REPOSITIONED AND CLEANED THE PATIENT WITH THE ASSISTANCE OF , COLLEEN, AND MARY BETH QUIÑONEZ. BLOOD CLOTS AROUND THE PENIS NOTED. LINK CATHETER DRAINING SEROSANGUINEOUS URINE. ORAL CARE GIVEN. MOISTURIZER APPLIED. HEEL PROTECTOR IN PLACE. PATIENT TOLERATED WELL.
--- NOTE | 2019-09-29 17:07 | NUR ---
RESTING COMFORTABLY NO SOB NOTED GOOD CHEST RISE DEEP TRACHEAL SUCTION THIN PALOMINO FROTHY SECRETIONS AIRWAY PATENT
--- NOTE | 2019-09-29 18:00 | NUR ---
HUNG ZOSYN VIA IVPB. PATIENT IS AWAKE, EYES OPEN. NO SIGNS OF RESPIRATORY DISTRESS. TRACH TO VENT. O2SAT 96%, HR 82. BED IN LOW POSITION. CALL LIGHT IS WITHIN REACH. WILL CONTINUE TO MONITOR
--- NOTE | 2019-09-29 18:26 | NUR ---
DR. RUSSELL AWARE REGARDING BLOOD CLOTS AND FIRM STOMACH. HE STATED HE WILL SEE THE PATIENT.
--- NOTE | 2019-09-29 19:17 | NUR ---
ENDORSED PATIENT TO THE SHERIFFS OFFICER NURSES FOR CONTINUITY OF CARE. NO SIGNS OF RESPIRATORY DISTRESS. TRACH TO VENT. O2SAT 96%, HR 86. PATIENT IS IN STABLE CONDITION.
--- NOTE | 2019-09-29 19:20 | NUR ---
RECEIVED REPORT FROM DAY SHIFT NURSE. PATIENT APHASIC, BEDBOUND. TRACH TO VENT. PATIENT WITH LINK CATHETER DRAINING RED TO PINKISH URINE. WITH GTUBE IN PLACE. INTACT. NOTED LEFT FOOT IV SITE 22 G RUNNING NS @ 125 ML/HR. PATIENT NOTED STAGE 2 SACRAL PRESSURE ULCER, DRESSING DRY AND INTACT. REVIEWED PLAN OF CARE TO PATIENT. SAFETY MEASURES IN PLACE. WILL CONTINUE TO MONITOR PATIENT.
--- NOTE | 2019-09-29 20:08 | NUR ---
ALL SCHEDULED MEDICATIONS GIVEN VIA GTUBE AND IVP. PATIENT TOLERATED WELL. NO ADVERSE REACTION NOTED. WILL CONTINUE TO MONITOR PATIENT.
[2019-09-29] MEDS: SENNA 8.6 MG TAB GT SCH (20:09)
[2019-09-29] MEDS: ATORVASTATIN 20 MG TAB GT SCH (20:09)
[2019-09-29] MEDS: CYANOCOBALAMIN 100 MCG TAB GT SCH (20:09)
[2019-09-29] MEDS: POLYVINYL ALCOHOL 1.4% OP 15 ML SOL BOTH EYES SCH (20:20)
--- NOTE | 2019-09-29 22:30 | NUR ---
CHECKED PATIENT. PATIENT IS AWAKE, TRACH TO VENT. O2 SAT AT 97%. MADE PATIENT COMFORTABLE. SAFETY MEASURES IN PLACE. CALL LIGHT WITHIN REACH. WILL CONTINUE TO MONITOR PATIENT.
[2019-09-30] VITALS: BP 125/80
[2019-09-30] MEDS: PIPERACILLIN/TAZOBACTAM 3.375 GM in DEXTROSE 5% 50 ML IV SCH ×5 (00:08→23:59)
--- NOTE | 2019-09-30 00:08 | NUR ---
ADMINISTERED SCHEDULED IV ANTIBIOTIC. NO ADVERSE REACTION NOTED. WILL CONTINUE TO MONITOR PATIENT.
[2019-09-30] MEDS: Z-GUARD PASTE TP SCH ×3 (01:03→13:00)
--- NOTE | 2019-09-30 03:50 | NUR ---
CHECKED PATIENT'S RESIDUAL ON GTUBE- NO RESIDUE NOTED. CHANGED PATIENT'S FEEDING JEVITY 1.2. WILL CONTINUE TO MONITOR PATIENT.
[2019-09-30 04:00] VITALS: BP 127/86
[2019-09-30] MEDS: NACL 0.9% 1,000 ML IV SCH ×3 (05:05→21:05)
[2019-09-30] MEDS: LANSOPRAZOLE 30 MG CAPDR GT SCH (05:36)
--- NOTE | 2019-09-30 05:36 | NUR ---
SCHEDULED IV ANTIBIOTIC AND GTUBE MEDICATION GIVEN. PATIENT TOLERATED WELL. WILL CONTINUE TO MONITOR PATIENT.
[2019-09-30 06:26] LABS: BASOPHILS % (AUTO) 1.2 % (0.0-2.0); EOSINOPHILS # (AUTO) 0.2 K/uL (0-0.4); EOSINOPHILS % (AUTO) 4.8 % (0.0-4.0); HEMATOCRIT 21.5 % (36-52); LYMPHOCYTES # (AUTO) 0.5 K/uL (2.0-11.5); LYMPHOCYTES % (AUTO) 13.2 % (20.5-51.1); MEAN CORPUSCULAR HEMOGLOBIN 30 pg (27-31); MEAN CORPUSCULAR HGB CONC 32 g/dL (33-37); MEAN CORPUSCULAR VOLUME 94.1 fL (80-94); MONOCYTES # (AUTO) 0.3 K/uL (0.8-1.0); NEUTROPHILS # (AUTO) 2.8 K/uL (1.8-7.7); NEUTROPHILS % (AUTO) 72.8 % (42.2-75.2); RED BLOOD CELL COUNT(AUTO) 2.29 MIL/uL (4.20-6.10); RED CELL DISTRIBUTION WIDTH 16.1 % (11.6-13.7); WHITE BLOOD COUNT (AUTO) 3.8 K/uL (4.8-10.8)
--- NOTE | 2019-09-30 06:44 | NUR ---
PT IS IN STABLE CONDITION. ENDORSED PT TO DAY SHIFT NURSE FOR CONTINUITY OF CARE.
[2019-09-30 06:55] LABS: CREATININE 1.2 mg/dL (0.6-1.3); POTASSIUM 3.9 mmol/L (3.5-5.1)
[2019-09-30 07:12] LABS: ANION GAP 13.3 (8-16); CARBON DIOXIDE 27.6 mmol/L (21-32)
--- NOTE | 2019-09-30 07:15 | NUR ---
RECEIVED PT FROM WEB SYSTEMS DEVELOPER NURSE. PT IS CURRENTLY SLEEPING WITH NO SIGNS OF DISTRESS AT THIS TIME. SKIN IS INTACT WITH SACRAL REDNESS. IV IS PATENT ASYMPTOMATIC AND INFUSING PER ORDER. G-TUBE IS IN PLACE AND FEEDING IS INFUSING PER ORDER. O2 SATURATIONS ARE WITHIN NORMAL RANGE ON TRACH TO VENT. SAFETY MEASURES IN PLACE AND WILL CONTINUE TO MONITOR.
[2019-09-30] MEDS: ALBUTEROL SULFATE/IPRATROPIU 3 ML SOL IH SCH ×3 (07:35→19:58)
[2019-09-30 07:40] LABS: PLATELET COUNT (AUTO) 38 K/uL (140-450)
[2019-09-30 08:00] VITALS: BP 138/88
--- NOTE | 2019-09-30 08:05 | NUR ---
PT RECEIVED ON AC 500 PEEP 5 F12 PT WAS GIVEN Tx RN WAS INFORMED HR IS LOW SHE STATED SHE WAS GOING TO INFORM
--- NOTE | 2019-09-30 08:10 | NUR ---
PTS HEART RATE IS [address] SHAH IS AWARE. NO CHANGE IN ORDERS AT THIS TIME. SAFETY MEASURES IN PLACE AND WILL CONTINUE TO MONITOR.
[2019-09-30] MEDS: DOCUSATE 100 MG/10 ML UDC GT SCH ×2 (09:00→21:06)
[2019-09-30] MEDS: TIMOLOL OP 0.5% 5 ML BTL BOTH EYES SCH (09:00)
[2019-09-30] MEDS: ASPIRIN 81 MG TAB.CHEW GT SCH (09:00)
[2019-09-30] MEDS: LEVOTHYROXINE 0.05 MG TAB GT SCH (09:19)
[2019-09-30] MEDS: DOXAZOSIN 2 MG TAB GT SCH (09:19)
[2019-09-30] MEDS: ASCORBIC ACID 500 MG TAB GT SCH ×2 (09:20→21:06)
[2019-09-30] MEDS: LACTOBACILLUS RHAMNOSUS GG 1 EACH CAP GT SCH (09:20)
[2019-09-30] MEDS: MULTIVITAMIN 1 TAB GT SCH (09:20)
[2019-09-30] MEDS: levETIRAcetam 100 MG/ML ORASYR GT SCH ×2 (09:21→21:07)
[2019-09-30] MEDS: FERROUS SULFATE 300 MG/5 ML UDC GT SCH ×2 (09:21→21:05)
[2019-09-30] MEDS: FUROSEMIDE 20 MG/2 ML VIAL IVP SCH ×2 (09:21→21:07)
--- NOTE | 2019-09-30 09:30 | NUR ---
ADMINISTERED MORNING MEDICATIONS AND PT TOLERATED WELL. NO SIGNS OF DISTRESS AT THIS TIME. SAFETY MEASURES IN PLACE AND WILL CONTINUE TO MONITOR.
--- NOTE | 2019-09-30 10:05 | NUR ---
ASPIRIN WAS HELD DUE TO HEMOGLOBIN LEVEL PER DR. SHAH. DOCUSATE WAS ALSO HELD DUE TO LOOSE STOOL. SAFETY MEASURES IN PLACE AND WILL CONTINUE TO MONITOR. PT IS IN NO SIGNS OF DISTRESS AT THIS TIME.
[2019-09-30] MEDS: LISINOPRIL 5 MG TAB GT SCH (10:17)
--- NOTE | 2019-09-30 11:30 | NUR ---
PT WAS CHANGED AND TOLERATED WELL. NO SIGNS OF DISTRESS NOTED. SAFETY MEASURES IN PLACE AND WILL CONTINUE TO MONITOR.
[2019-09-30 12:00] VITALS: BP 136/85
--- NOTE | 2019-09-30 12:17 | NUR ---
DISCHARGE PLANNING: THIS IS A 69 Y/O MALE [place] [facility]OU[place] DUE TO BRADYCARDIA. PAST MEDICAL HISTORY INCLUDE CHRONIC RESPIRATORY FAILURE WITH TRACH DEPENDENCE, CEREBELLAR HEMORRHAGE CVA, HTN, ANEMIA, EPILEPSY AND BPH OBSTRUCTIVE UROPATHY. INITIAL DIAGNOSIS OF BRADYCARDIA AND UTI. CURRENT LABS INCLUDE WBC 3.8, H/H 7.0/21.5, NA/K 146/3.9, BUN/CREA 30/1.2 AND MAG 2.6. CRP 5.6. ON LASIX IV AND ZOSYN. CARDIO, PULMO, ID, NEPHRO CONSULTS IN PLACE. COVID NEGATIVE X2. TRACH TO VENT FIO2 28%. DC PLAN BACK TO [facility] [place]CE STABLE. Addendum: 10/01/19 at 1104 by Lucy Benitez CM FOR POSSIBLE DC BACK TO [facility] AFTER TRANSFUSION. CLINICALS FA[place]ED TO [facility]. WILL FOLLOW UP. Addendum: 10/01/19 at 1420 by Carin Smith CM PATIENT WILL BE DISCHARGED TO [facility] Addendum: 10/01/19 at 1422 by Carin Smith CM SHARLA FROM [facility] PROVIDED TRANSPORTATION AUTH # [id number]. WILL SET UP TRANSPORTATION ONCE WE RECEIVE D/C Addendum: 10/01/19 at 1514 by Lucy Benitez CM PER IESHA, PATIENT WILL GO TO ROOM 1C UNDER DR. JACKSON. ACETALDEHYDE CONVERTER OPERATOR WILL [phone] PER CAMILO FROM [facility]. DR. RUSSELL, PRIMARY RN FAVIAN AND CHARGE NURSE MADE AWARE.
--- NOTE | 2019-09-30 13:00 | NUR ---
ADMINISTERED MEDICATIONS PER ORDER AND TOLERATED WELL. PT IS CURRENTLY LAYING IN BED WITH NO SIGNS OF DISTRESS. RESPIRATORY IS NOW AT BEDSIDE. SAFETY MEASURES IN PLACE AND WILL CONTINUE OT MONITOR.
--- NOTE | 2019-09-30 15:04 | NUR ---
09/30/19 RD FOLLOW UP COMPLETED PLEASE REFER TO NUTRITION ASSESSMENT UNDER CARE ACTIVITY FOR ESTIMATED NUTRITIONAL NEEDS. 1. CONTINUE JEVITY 1.2 @ 65 ML/HR X24 HR -THIS WILL PROVIDE 1560 ML TOTAL VOLUME, 1872 KCAL, 87 GM PROTEIN 2. CONTINUE FREE WATER FLUSH TO 50 ML Q4H 3. CONTINUE MVI AND VITAMIN C TO PROMOTE WOUND HEALING. 4. RD WILL F/U 2-3 DAYS; HIGH RISK. LORNE CATHERINE RD
--- NOTE | 2019-09-30 15:55 | NUR ---
PT IS CURRENTLY ASLEEP WITH NO SIGNS OF DISTRESS NOTED. SAFETY MEASURES IN PLACE AND WILL CONTINUE TO MONITOR.
[2019-09-30 18:00] VITALS: BP 138/79
--- NOTE | 2019-09-30 18:45 | NUR ---
ADMINISTERED MEDICATIONS PER ORDER AND TOLERATED WELL. PT IS IN NO SIGNS OF DISTRESS AT THIS TIME. SAFETY MEASURES IN PLACE AND WILL ENDORSE TO FINISHER MERCHANT PRODUCTS NURSE FOR CONTINUITY OF CARE.
--- NOTE | 2019-09-30 19:05 | NUR ---
RECEIVED REPORT FROM AM SHIFT NURSE FOR CONTINUITY OF CARE. PATIENT ON TELE MONITOR. PATIENT IS TRACH TO VENT, NO RESP DISTRESS NOTED, O2 SAT 100%. IV SITE TO LEFT FOOT PATENT AND INTACT. PATIENT AO X0. APHASIC, OPENS EYES. GTUBE FEEDING INTACT AND TOLERATING WELL. LINK CATHETER IN PLACE WITH BLOODY OUTPUT, MD AWARE. BED IN LOW POSITION AND SAFETY MEASURES IN PLACE. WILL CONTINUE TO MONITOR
--- NOTE | 2019-09-30 20:12 | NUR ---
RECEIVED PATIENT TRACH TO MECHANICAL VENTILATOR AT DOCUMENTED SETTINGS. VENT CHECK DONE. VENT ALARMS ON AND AUDIBLE. VENT PLUGGED INTO RED OUTLET WITH WHEELS LOCKED. AMBU BAG AT [facility]. AIRWAY SECURE AND PATENT. SUCTIONED LARGE AMOUNT OF THICK, YELLOW SECRETIONS. ORAL VAP CARE DONE. SCHEDULED BREATHING TREATMENT ADMINISTERED. TOLERATED TX WELL WITHOUT ADVERSE SIDE EFFECTS. NO ACUTE RESPIRATORY DISTRESS NOTED AT THIS TIME. WILL CONTINUE TO MONITOR.
--- NOTE | 2019-09-30 20:40 | NUR ---
PATIENT REPOSITIONED FOR COMFORT. CLEAN AND DRY. MEDS GIVEN VIA GTUBE, TOLERATED WELL NO RESIDUAL NOTED.
[2019-09-30] MEDS: SENNA 8.6 MG TAB GT SCH (21:06)
[2019-09-30] MEDS: POLYVINYL ALCOHOL 1.4% OP 15 ML SOL BOTH EYES SCH (21:11)
[2019-09-30] MEDS: ATORVASTATIN 20 MG TAB GT SCH (21:12)
[2019-09-30] MEDS: CYANOCOBALAMIN 100 MCG TAB GT SCH (21:12)
--- NOTE | 2019-09-30 22:30 | NUR ---
ROUNDS MADE, PATIENT SLEEPING. TRACH TO VENT CONTINUES WITH 02 SAT AT 100%
[2019-10-01] VITALS (7 sets, daily range): BP systolic 112–149; BP diastolic 71–93
--- NOTE | 2019-10-01 00:30 | NUR ---
MEDICATION GIVEN. IV TO LEFT FOOT PATENT AND INTACT.
[2019-10-01] MEDS: NACL 0.9% 1,000 ML IV SCH ×2 (01:50→11:10)
[2019-10-01] MEDS: Z-GUARD PASTE TP SCH ×3 (01:56→12:32)
--- NOTE | 2019-10-01 02:00 | NUR ---
CURRENTLY SLEEPING, TRACH TO VENT WITH 02 SAT AT 100%. BED IN LOW POSITION CALL LIGHT WITHIN REACH
--- NOTE | 2019-10-01 04:45 | NUR ---
REPOSITIONED, CLEAN AND DRY. PATIENT SLEEPING.
[2019-10-01] MEDS: PIPERACILLIN/TAZOBACTAM 3.375 GM in DEXTROSE 5% 50 ML IV SCH (05:10)
[2019-10-01] MEDS: LANSOPRAZOLE 30 MG CAPDR GT SCH (06:10)
--- NOTE | 2019-10-01 06:24 | NUR ---
MORNING MEDICATION GIVEN VIA GTUBE, TOLERATED WELL. NO RESIDUAL NOTED.
[2019-10-01 06:41] LABS: HEMATOCRIT 20.4 % (36-52); MEAN CORPUSCULAR HEMOGLOBIN 31 pg (27-31); MEAN CORPUSCULAR HGB CONC 33 g/dL (33-37); MEAN CORPUSCULAR VOLUME 93.6 fL (80-94); PLATELET COUNT (AUTO) 25 K/uL (140-450); RED BLOOD CELL COUNT(AUTO) 2.18 MIL/uL (4.20-6.10); RED CELL DISTRIBUTION WIDTH 16.3 % (11.6-13.7); WHITE BLOOD COUNT (AUTO) 3.1 K/uL (4.8-10.8)
[2019-10-01 07:11] LABS: CREATININE 1.1 mg/dL (0.6-1.3)
[2019-10-01] MEDS: ALBUTEROL SULFATE/IPRATROPIU 3 ML SOL IH SCH ×2 (07:19→13:21)
--- NOTE | 2019-10-01 07:21 | NUR ---
RECEIVED REPORT FROM DIGITAL PRESS OPERATOR RN AT BEDSIDE. PT RESTING IN BED, APPEARS COMFORTABLE, RESPIRATIONS EVEN AND UNLABORED, NO SIGNS OF DISTRESS. RT AT BEDSIDE AT THIS TIME. PT TRACH TO VENT. DNR. ON GTUBE FEEDING JEVITY @ 65 CC/HR. PT BEDBOUND, APHASIC, OPENS EYES SPONT TO VOICE. CONTACT PRECAUTIONS FOR MDRO URINE. NS @125 INFUSING. WOUND ON COCCYX COVERED WITH DRESSING, C/D/I. WILL CONTINUE TO MONITOR FOR SIGNS OF BLEEDING--PLT LOW. ALL SAFETY PRECAUTIONS IN PLACE, WILL CONTINUE TO MONITOR.
--- NOTE | 2019-10-01 07:23 | NUR ---
REPORT GIVEN TO AM SHIFT NURSE FOR CONTINUITY OF CARE, RESP IS BEDSIDE. PATIENT SHOWS NO SIGNS OF DISTRESS. BED IN LOW POSITION AND SAFETY MEASURES IN PLACE.
[2019-10-01 08:51] LABS: HEMOGLOBIN 6.7 g/dL (12.0-18.0)
[2019-10-01] MEDS: TIMOLOL OP 0.5% 5 ML BTL BOTH EYES SCH (09:00)
[2019-10-01] MEDS: ASPIRIN 81 MG TAB.CHEW GT SCH (09:00)
[2019-10-01 09:24] LABS: EOSINOPHILS % (MANUAL) 6 % (0-4); LYMPHOCYTES % (MANUAL) 15 % (20-46); MONOCYTES % (MANUAL) 10 % (5-12)
[2019-10-01] MEDS: LISINOPRIL 5 MG TAB GT SCH (10:13)
[2019-10-01] MEDS: levETIRAcetam 100 MG/ML ORASYR GT SCH (10:13)
[2019-10-01] MEDS: DOCUSATE 100 MG/10 ML UDC GT SCH (10:13)
[2019-10-01] MEDS: FERROUS SULFATE 300 MG/5 ML UDC GT SCH (10:13)
[2019-10-01] MEDS: MULTIVITAMIN 1 TAB GT SCH (10:14)
[2019-10-01] MEDS: ASCORBIC ACID 500 MG TAB GT SCH (10:14)
[2019-10-01] MEDS: LEVOTHYROXINE 0.05 MG TAB GT SCH (10:14)
[2019-10-01] MEDS: LACTOBACILLUS RHAMNOSUS GG 1 EACH CAP GT SCH (10:14)
[2019-10-01] MEDS: FUROSEMIDE 20 MG/2 ML VIAL IVP SCH (10:15)
[2019-10-01] MEDS: DOXAZOSIN 2 MG TAB GT SCH (10:17)
--- NOTE | 2019-10-01 11:03 | NUR ---
ATTEMPTED TO REACH NEXT OF KIN BAHMAN AT [phone] TO OBTAIN CONSENT FOR BLOOD TRANSFUSION. CALLED THREE TIMES--DISCONNECTED TONE. NO OTHER CONTACT INFO AVAILABLE.
--- NOTE | 2019-10-01 12:29 | NUR ---
WENT TO BLOOD BANK BUT DUE TO TECHNICAL ISSUE, BLOOD BANK UNABLE TO DISPENSE THE 1 UNIT PRBC AT THIS TIME. BLOOD BANK TO CALL ME WHEN READY.
--- NOTE | 2019-10-01 13:28 | NUR ---
1 UNIT PRBC STARTED AT THIS TIME. WILL MONITOR AT BEDSIDE.
--- NOTE | 2019-10-01 13:30 | NUR ---
RT AT BEDSIDE FOR BREATHING TX
[2019-10-01] MEDS ORDERED: PIPE1PDS26 IV (15:15)
--- NOTE | 2019-10-01 15:37 | NUR ---
CALLED AND SPOKE WITH DAUGHTER BAHMAN REGARDING PLAN TO TRANSFER PT TO [facility] AFTER 7PM TODAY. ALSO PLAN OF CARE EDUCATION GIVEN. ALL QUESTIONS ANSWERED. BAHMAN VERBALIZED UNDERSTANDING.
--- NOTE | 2019-10-01 16:20 | NUR ---
1 UNIT PRBC COMPLETE. VSS. PT RESTING IN BED, APPEARS COMFORTABLE.
--- NOTE | 2019-10-01 16:25 | NUR ---
NOTIFIED LAB OF TIME OF BLOOD TRANSFUSION COMPLETE--DRAW CBC ORDERED AFTER TRANSFUSION
--- NOTE | 2019-10-01 17:09 | NUR ---
WASTEWATER TREATMENT PLANT INSTRUCTOR AT BEDSIDE FOR BLOOD DRAW
[2019-10-01 17:30] LABS: BASOPHILS % (AUTO) 0.4 % (0.0-2.0); EOSINOPHILS # (AUTO) 0.1 K/uL (0-0.4); EOSINOPHILS % (AUTO) 4.5 % (0.0-4.0); HEMATOCRIT 23.7 % (36-52); HEMOGLOBIN 7.8 g/dL (12.0-18.0); LYMPHOCYTES # (AUTO) 0.6 K/uL (2.0-11.5); LYMPHOCYTES % (AUTO) 17.7 % (20.5-51.1); MEAN CORPUSCULAR HEMOGLOBIN 30 pg (27-31); MEAN CORPUSCULAR HGB CONC 33 g/dL (33-37); MEAN CORPUSCULAR VOLUME 92.5 fL (80-94); MONOCYTES # (AUTO) 0.3 K/uL (0.8-1.0); MONOCYTES % (AUTO) 9.1 % (1.7-9.3); NEUTROPHILS # (AUTO) 2.2 K/uL (1.8-7.7); NEUTROPHILS % (AUTO) 68.3 % (42.2-75.2); PLATELET COUNT (AUTO) 23 K/uL (140-450); RED BLOOD CELL COUNT(AUTO) 2.56 MIL/uL (4.20-6.10); RED CELL DISTRIBUTION WIDTH 16.6 % (11.6-13.7); WHITE BLOOD COUNT (AUTO) 3.2 K/uL (4.8-10.8)
--- NOTE | 2019-10-01 17:53 | NUR ---
BOTTLE OF TUBE FEEDING DONE. PT WILL BE PICKED UP BY [facility] AT 1900 FOR TX TO [facility].
--- NOTE | 2019-10-01 17:57 | NUR ---
SACRAL WOUND PHOTO TAKEN AND NEW DRESSING PLACED. JUNIOR ESTIMATOR NOT WORKING NOW, FEEDER LOADER WILL ASSIST WITH PRINTING PHOTO.
--- NOTE | 2019-10-01 18:00 | NUR ---
PER DR. RUSSELL, LEAVE LINK CATH IN FOR TX [place] [facility]
--- NOTE | 2019-10-01 18:28 | NUR ---
REPORT TO AARON SAM AT [facility]
--- NOTE | 2019-10-01 18:58 | NUR ---
D/C WOUND PHOTO PLACED IN CHART.
--- NOTE | 2019-10-01 19:21 | NUR ---
report to [facility] shift lead rn, transfer of care at this time. pt in stable condition.
--- NOTE | 2019-10-01 19:22 | NUR ---
RECEIVED REPORT FROM DAY RN AT BEDSIDE. PT RESTING IN BED, APPEARS COMFORTABLE, RESPIRATIONS EVEN AND UNLABORED, ON TRACH TO VENT. NO SIGNS OF DISTRESS. DNR. ON GTUBE AT THIS TIME CLAMP. PT BEDBOUND, APHASIC, OPENS EYES SPONT TO VOICE. CONTACT PRECAUTIONS FOR MDRO URINE. NS @125 INFUSING TO L FOOT 22G. WOUND ON COCCYX COVERED WITH DRESSING, C/D/I. WILL CONTINUE TO MONITOR FOR SIGNS OF BLEEDING--PLT LOW. ALL SAFETY PRECAUTIONS IN PLACE, WILL CONTINUE TO MONITOR.
--- NOTE | 2019-10-01 19:40 | NUR ---
REPORT GIVEN TO [facility] PT TO BE TRANSFERRED BACK [place] [facility]. PT DNR POLST GIVEN TO [facility]. PACKET AND D/C PACKAGE GIVEN. PT TEMP LOW 90.0 AXILLARY OTHER PAREDES PT IS STABLE. PT LEFT IN STABLE CONDITION.
== END 2019-10-01 19:40 | DRG 870 ==
LOC: MED 06:00 → MIC 16:10 → MTU 20:28
PROVIDERS: ADMIT General Practice; ATTEND General Practice
PROC: 5A1955Z Respiratory Ventilation, Greater than 96 Consecutive Hours (ICD-10-PCS; principal; 2019-09-26)
PROC: 30233N1 Transfusion of Nonautologous Red Blood Cells into Peripheral Vein, Percutaneous Approach (ICD-10-PCS; 2019-10-01)
DX: A41.9 Sepsis, unspecified organism (principal); J69.0 Pneumonitis due to inhalation of food and vomit; N17.0 Acute kidney failure with tubular necrosis; E43 Unspecified severe protein-calorie malnutrition; J96.20 Acute and chronic respiratory failure, unspecified whether with hypoxia or hypercapnia; D61.818 Other pancytopenia; Z99.11 Dependence on respirator [ventilator] status; N13.8 Other obstructive and reflux uropathy; N39.0 Urinary tract infection, site not specified; E87.0 Hyperosmolality and hypernatremia; I13.0 Hypertensive heart and chronic kidney disease with heart failure and stage 1 through stage 4 chronic kidney disease, or unspecified chronic kidney disease; Z66 Do not resuscitate; D63.8 Anemia in other chronic diseases classified elsewhere; N40.1 Benign prostatic hyperplasia with lower urinary tract symptoms; H40.9 Unspecified glaucoma; I50.9 Heart failure, unspecified; K21.9 Gastro-esophageal reflux disease without esophagitis; G40.909 Epilepsy, unspecified, not intractable, without status epilepticus; E83.42 Hypomagnesemia; E83.39 Other disorders of phosphorus metabolism; L89.152 Pressure ulcer of sacral region, stage 2; E78.00 Pure hypercholesterolemia, unspecified; K59.00 Constipation, unspecified; E03.9 Hypothyroidism, unspecified; N18.3 Chronic kidney disease, stage 3 (moderate); B96.5 Pseudomonas (aeruginosa) (mallei) (pseudomallei) as the cause of diseases classified elsewhere; B96.89 Other specified bacterial agents as the cause of diseases classified elsewhere; E78.5 Hyperlipidemia, unspecified; Z86.73 Personal history of transient ischemic attack (TIA), and cerebral infarction without residual deficits; Z68.28 Body mass index [BMI] 28.0-28.9, adult; Z79.899 Other long term (current) drug therapy; Z93.0 Tracheostomy status; Z79.82 Long term (current) use of aspirin; Z93.1 Gastrostomy status; Z03.818 Encounter for observation for suspected exposure to other biological agents ruled out
CPT/HCPCS: 36415; 36600; 71045; 76770; 80048; 80053; 80202; 81001; 82150; 82550; 82607; 82728; 82746; 82803; 83036; 83540; 83605; 83615; 83690; 83735; 83880; 84100; 84439; 84443; 84484; 85025; 85045; 85379; 85384; 85610; 85651; 85730; 86140; 86886; 86900; 86901; 86920; 87040; 87070; 87081; 87086; 87186; 87205; 89220; 93005; 94002; 94003; 94640; 96365; 96367; 96375; 97110; 97161-GP; 99285; C9113; J0696; J1940; J2405; J2543; J3370; J7030; J7060; P9016; P9046; Q0092; U0003-CS

== ENCOUNTER 2019-10-02 19:53 | Emergency (ER) | payer OTHER ==
[~2019-10-02] VITALS: Ht 167.6 cm; Wt 109.5 kg
[~2019-10-02 19:53] MED LIST changes: -AMLO5TAB PO; -BISA-213 RC; -CHLO118S2 TP; -DEXT1DRO5 OP; -FERR75LI22 GT; +FERR75LI22 PO; -FLEPED RC; +FURO-572 GT; -LACT-2 GT; -LEVO0.0211 PO; -MUPI2CRE22 NS; -ONDA4TAB PO; +PIPE1PDS26 IV; +SYN.05 GT; -[UNRECOGNIZED DRUG - CODE] GT
[2019-10-02 19:58] VITALS: BP 139/94
--- NOTE | 2019-10-02 20:00 | NUR ---
69 YO M BIBA FROM [facility] FOR C/C OF BLOOD IN LINK CATH. URINE APPEARS THICK AND BRIGHT RED. PT IS A DNR AND PRESENTS WITH A 40 HR SINUS BRADYCARDIA. PERIPHERAL PULSES ARE DIMINISHED AND EVEN IN ALL EXTREMETIES. S1 S2 HEARD. PT PRESENTS WITH TRACH TO VENT. REGUALR VENT SETTINGS APPLIED BY RT. LUNG SOUNDS CLEAR THROUGHOUT. BOWEL SOUNDS HYPOACTIVE THROUGHOUT. PER EMS REPORT DENIES N/V/D, FEVER, COUGH, OR SOB. BED LOCKED AND IN LOWEST POSITION. PT PLACED ON INSTALLATION SUPERINTENDENT. BED LOCKED AND IN LOWEST POSITION. SIDE RAILS X2. NKA UNKOWN MED HX UNKOWN RX
--- NOTE | 2019-10-02 20:07 | NUR ---
CORE TEMP 89.1--LORI SCOTT.
--- NOTE | 2019-10-02 20:33 | NUR ---
# 16 FR Arteaga catheter with 10 ml utilizing sterile technique. Immediate return of 5 ml bloody urine noted. Bedside drainage bag placed below level of bladder. Urine sample collected and sent to lab. Pt tolerated procedure well.
[2019-10-02 20:56] LABS: BASOPHILS % (AUTO) 0.8 % (0.0-2.0); EOSINOPHILS # (AUTO) 0.1 K/uL (0-0.4); EOSINOPHILS % (AUTO) 3.7 % (0.0-4.0); HEMOGLOBIN 8.1 g/dL (12.0-18.0); LYMPHOCYTES # (AUTO) 0.4 K/uL (2.0-11.5); LYMPHOCYTES % (AUTO) 17.4 % (20.5-51.1); MEAN CORPUSCULAR HEMOGLOBIN 30 pg (27-31); MEAN CORPUSCULAR HGB CONC 32 g/dL (33-37); MEAN CORPUSCULAR VOLUME 93.6 fL (80-94); MONOCYTES # (AUTO) 0.2 K/uL (0.8-1.0); MONOCYTES % (AUTO) 8.2 % (1.7-9.3); NEUTROPHILS # (AUTO) 1.8 K/uL (1.8-7.7); NEUTROPHILS % (AUTO) 69.9 % (42.2-75.2); PLATELET COUNT (AUTO) 28 K/uL (140-450); RED BLOOD CELL COUNT(AUTO) 2.67 MIL/uL (4.20-6.10); RED CELL DISTRIBUTION WIDTH 16.5 % (11.6-13.7); WHITE BLOOD COUNT (AUTO) 2.6 K/uL (4.8-10.8)
--- NOTE | 2019-10-02 20:58 | NUR ---
CORE TEMP REMAINS 89.1--LORI NEWMAN REMAINS IN PLACE.
[2019-10-02 20:59] LABS: APPEARANCE,URINE CLEAR (CLEAR); BILIRUBIN,URINE NEGATIVE (NEGATIVE); BLOOD, URINE 3+ (NEGATIVE); COLOR,URINE YELLOW (YELLOW); LEUKOCYTE ESTERASE ,URINE 2+ (NEGATIVE); NITRITE, URINE POSITIVE (NEGATIVE); PH,URINE 6.5 (5.0-9.0); UGLUCOSE TRACE (NEGATIVE)
[2019-10-02] MEDS ORDERED: cefTRIAXone 1,000 MG VIAL ONE (21:14)
[2019-10-02 21:15] LABS: ALBUMIN 2.5 g/dL (3.4-5.0); ANION GAP 10.6 (8-16); CARBON DIOXIDE 29.8 mmol/L (21-32); POTASSIUM 4.4 mmol/L (3.5-5.1); TOTAL BILIRUBIN 0.3 mg/dL (0.0-1.0)
[2019-10-02] MEDS ORDERED: NACL 0.9% 500 ML IV ONE (21:35)
--- NOTE | 2019-10-02 21:50 | NUR ---
CALLED RT TO GO WITH WIRELESS COMMUNICATIONS ENGINEER TO CT. SAID THEY WILL BE OVER IN 15 MIN
[2019-10-02 22:00] VITALS: BP 139/94
[2019-10-02 22:07] LABS: RBC,URINE TOO NUMEROUS TO COUN /HPF (0-5)
--- NOTE | 2019-10-02 22:08 | NUR ---
PT TAKEN TO CT VIA GURNEY WITH RT TO ASSIST WITH TRACH
--- NOTE | 2019-10-02 22:25 | NUR ---
PT RETURNED FROM CT VIA [facility]
--- NOTE | 2019-10-02 22:52 | NUR ---
PT SLEEPING IN BED COMFORTABLY. EQUAL CHEST RISE AND FALL. LORI HUGGER IN PLACE. BED LOCKED AND IN LOWEST POSTION. SNAG GRINDER IN PLACE.
--- NOTE | 2019-10-02 23:50 | NUR ---
CALLED [facility] TO GIVE REPORT TO FLACO GARCIA. RN MADE AWARE OF PLAN OF CARE AND TIME PT WILL ARRIVE BACK TO FACILITY.
--- NOTE | 2019-10-03 00:15 | NUR ---
ermd made aware of rectal temp of 89.9. ermd states pt is still ok to discharge to facility.
--- NOTE | 2019-10-03 00:38 | NUR ---
PT SLEEPING IN BED COMFORTABLY. EQUAL CHEST RISE AND FALL. LORI HUGGER IN PLACE. BED LOCKED AND IN LOWEST POSTION. ELECTRONIC EQUIPMENT INSTALLER IN PLACE.
--- NOTE | 2019-10-03 00:43 | NUR ---
[facility] CREW AT BEDSIDE FOR TRANSPORT BACK TO [facility].
--- NOTE | 2019-10-03 00:44 | NUR ---
SPOKE WITH CHARISMA FROM [facility] INFORMED THAT PATIENT WOULD BE RETURNING. CHARISMA VERBALIZED UNDERSTANDING.
--- NOTE | 2019-10-03 00:54 | NUR ---
[facility] CREW GIVEN D/C PAPERWORK BY PRIMARY RN, SARAH. ALL QUESTIONS ANSWERED. [facility] HAS BEEN CALLED BY PRIMARY RN AND REPORT WAS GIVEN. RX OF LEVAQUIN GIVEN. PT LEFT FACILITY VIA [facility] WITHOUT INCIDENT. Addendum: 10/03/19 at 0057 by MEDJANETH PT WAS GIVEN RX OF CEFTRIAXONE 500MG, NOT LEVAQUIN.
[2019-10-03 00:58] VITALS: BP 136/86
== END 2019-10-03 00:58 ==
LOC: MED 19:53
DX: N39.0 Urinary tract infection, site not specified (principal); D61.818 Other pancytopenia; I11.0 Hypertensive heart disease with heart failure; D64.9 Anemia, unspecified; Z79.899 Other long term (current) drug therapy
CPT/HCPCS: 36415; 74176; 80053; 81001; 83605; 85025; 87040; 87086; 96365; 99284; J0696; J7030

== ENCOUNTER 2019-10-05 21:39 | Emergency (ER) | payer OTHER ==
[~2019-10-05] VITALS: Ht 167.6 cm; Wt 104.8 kg
[~2019-10-05 21:39] MED LIST changes: -ASCO500T45 GT; +ASCO500T95 GT; -MULT-153 GT; +MULT-2112 GT
[2019-10-05 21:45] VITALS: BP 139/88
--- NOTE | 2019-10-05 21:45 | NUR ---
ALTAGRACIA COREAS TAKEN TO BED #10
--- NOTE | 2019-10-05 21:50 | NUR ---
PT IV INSERTED PRIOR TO HOSPITAL ARRIVAL, 24 G TO LEFT HAND, IV PATENT .
--- NOTE | 2019-10-05 21:50 | NUR ---
69 Y/O MALE BIBA FROM [place] C/O CRITICAL LAB HGB 6.5 . SKIN IS PINK/WARM/DRY; PT CONNECT TO TRACH TO VENT SETTING; GCS 6. HR EVEN AND REGULAR; VSS; PT CONNECTED TO TEXTILE WORKER, PULSE OX AND BP CUFF. PATIENT POSITIONED FOR COMFORT; HOB ELEVATED; BEDRAILS UP X2; BED DOWN. MEDHX- RESP FAILURE, TRACH TO VENT, STROKE, TIA NKA
--- NOTE | 2019-10-05 21:55 | NUR ---
ERMD AT BEDSIDE FOR MSE.
--- NOTE | 2019-10-05 22:13 | NUR ---
LAB AT BEDSIDE.
--- NOTE | 2019-10-05 22:15 | NUR ---
EKG PERFORMED AT BEDSIDE
[2019-10-05 22:37] LABS: MEAN CORPUSCULAR HEMOGLOBIN 31 pg (27-31); MEAN CORPUSCULAR HGB CONC 33 g/dL (33-37); MEAN CORPUSCULAR VOLUME 94.4 fL (80-94); RED BLOOD CELL COUNT(AUTO) 2.11 MIL/uL (4.20-6.10); RED CELL DISTRIBUTION WIDTH 16.6 % (11.6-13.7); WHITE BLOOD COUNT (AUTO) 3.3 K/uL (4.8-10.8)
[2019-10-05 22:43] LABS: APPEARANCE,URINE CLEAR (CLEAR); BILIRUBIN,URINE NEGATIVE (NEGATIVE); BLOOD, URINE 2+ (NEGATIVE); COLOR,URINE YELLOW (YELLOW); LEUKOCYTE ESTERASE ,URINE NEGATIVE (NEGATIVE); NITRITE, URINE NEGATIVE (NEGATIVE); UGLUCOSE NEGATIVE (NEGATIVE)
[2019-10-05 22:48] LABS: ALBUMIN 2.2 g/dL (3.4-5.0); ANION GAP 8.7 (8-16); CREATININE 1.1 mg/dL (0.6-1.3); POTASSIUM 4.7 mmol/L (3.5-5.1); TOTAL BILIRUBIN 0.3 mg/dL (0.0-1.0)
[2019-10-05 22:54] LABS: PROTHROMBIN TIME 10.3 secs (10.8-13.4)
--- NOTE | 2019-10-05 23:07 | NUR ---
PT BP AT 2301 98/59 , PT REPOSITIONED CURRENT BP 103/64
[2019-10-05 23:13] LABS: HEMATOCRIT 19.9 % (36-52); HEMOGLOBIN 6.6 g/dL (12.0-18.0)
[2019-10-05 23:14] LABS: PLATELET COUNT (AUTO) 38 K/uL (140-450)
[2019-10-05 23:15] LABS: EOSINOPHILS % (MANUAL) 3 % (0-4); LYMPHOCYTES % (MANUAL) 22 % (20-46); MONOCYTES % (MANUAL) 3 % (5-12)
[2019-10-05 23:30] VITALS: BP 105/67
[2019-10-05 23:34] LABS: RBC,URINE 11-20 (MOD) /HPF (0-5); WBC,URINE 0-5 /HPF (0-5)
[2019-10-05 23:35] LABS: URINE AMORPHOUS URATE 2+ /HPF (None Seen)
--- NOTE | 2019-10-06 00:10 | NUR ---
PT LAYING IN BED AT LOWEST POSITION, HOB ELEVATED , SIDE RAILS X2 FOR PT SAFETY. VSS. O2 SAT 98%.
--- NOTE | 2019-10-06 01:08 | NUR ---
Consent signed per ERMD agreeing to administration of blood. Blood has been type and crossmatched. Blood sent from blood bank. Information on unit of blood checked against patient wristband at bedside by two nurses. All information matches. Patient or responsible democrat informed of potential complications associated with blood transfusion. Informed of possible transfusion reaction symptoms. Aware of need to notify nurse at once of itching, shortness of breath, flushing, feeling of impending doom, or other symptoms not previously present. Vital signs taken within 5 minutes prior to initiation of transfusion. RN will remain with patient for first 15 minutes of transfusion at which time vital signs will be re-assessed.
--- NOTE | 2019-10-06 01:23 | NUR ---
PT VSS , NO RASH NOTED ON BODY , NO REPIRATORY DISTRESS NOTED. NO INFUSION REACTION NOTED AT THIS TIME, WILL CONTINUE TO MONITOR
--- NOTE | 2019-10-06 01:38 | NUR ---
PT VSS. NO RASH/HIVE NOTED ON PT BODY. NO RESPIRATORY DISTRESS NOTED. NO TRANSFUSION REACTION NOTED AT THIS TIME, WILL CONTINUE TO MONITOR. PT LAYING IN BED AT LOWEST POSITION, HOB ELEVATED, SIDE RAIL X2 FOR PT SAFETY.
--- NOTE | 2019-10-06 01:39 | NUR ---
PT BLOOD TRANSFUSION RATE CHANGED FROM 60 ML/HR TO 100 ML/HR.
--- NOTE | 2019-10-06 02:38 | NUR ---
PT VSS, NO HIVES/RASH NOTED ON PT BODY. NO RESPIRATORY DISTRESS NOTED . NO TRANSFUSION REACTION NOTED AT THIS TIME, WILL CONTINUE TO MONITOR.
--- NOTE | 2019-10-06 03:00 | NUR ---
TRANSFUSION RATE CHANGED FROM 100 ML/HR TO 150 ML/HR.
[2019-10-06 03:10] VITALS: BP 113/70
--- NOTE | 2019-10-06 03:17 | NUR ---
[employer] AT BEDSIDE.
--- NOTE | 2019-10-06 03:38 | NUR ---
PT VSS. NO HIVES/RASHED NOTED, NO RESPIRTORY DISTRESS NOTED. NO TRANSFUSION REACTION NOTED AT THIS TIME, WILL CONTINUE TO MONITOR.
--- NOTE | 2019-10-06 04:19 | NUR ---
SPOKE W/ FLACO S[place] [facility] [place].
--- NOTE | 2019-10-06 04:45 | NUR ---
[facility] NOTIFIED PT WILL BE ENROUTE FOR FACILITY W/IN 5 - 10 MIN
[2019-10-06 04:50] VITALS: BP 115/69
--- NOTE | 2019-10-06 04:50 | NUR ---
Patient discharged with v/s stable. Written and verbal after care instructions given and explained to FLACO Peter at [facility] [place]. Ambulance Transport with to skilled nursing. All questions addressed prior to discharge. Advised to follow up with PMD.
== END 2019-10-06 04:50 ==
LOC: MED 21:39
DX: D64.9 Anemia, unspecified (principal); R60.1 Generalized edema; I10 Essential (primary) hypertension; G40.909 Epilepsy, unspecified, not intractable, without status epilepticus; Z86.73 Personal history of transient ischemic attack (TIA), and cerebral infarction without residual deficits; Z98.890 Other specified postprocedural states; Z79.82 Long term (current) use of aspirin; Z79.899 Other long term (current) drug therapy
CPT/HCPCS: 36415; 51702; 80053; 81001; 83605; 84484; 85025; 85610; 85730; 86886; 86900; 86901; 86920; 87040; 87086; 93005; 99285; P9016

== ENCOUNTER 2019-10-08 19:58 | Inpatient (IN) | payer OTHER, SELFPAY ==
[~2019-10-08] VITALS: Ht 180.3 cm; Wt 94.8 kg
[2019-10-08 19:58] VITALS: BP 148/88
[~2019-10-08 19:58] MED LIST changes: +ASCO500T45 GT; -ASCO500T95 GT; +MULT-153 GT; -MULT-2112 GT
--- NOTE | 2019-10-08 19:58 | NUR ---
SCOTT FRIAS AND TRANSFERRED FROM [facility] TO BED 10
--- NOTE | 2019-10-08 19:58 | NUR ---
[facility]IB[facility] C/O [facility] (LOW HGB OF 6.8) X TODAY. NO BLEEDING NOTED. VSS. NO FEVER TRIAGE: 99.6. TRACH TO VENT. PT HAS A DNR. SKIN IS WARM TO TOUCH. VSS. A&OX 0 PER PT BASELINE. NKA. PMH: CHRONIC RESP FAILURE, BRADYCARIDA, CVA, HTN, GITUBE, TRACH, ANEMIA, EPILEPSY, GERD, BPH, GLAUCOMA.
--- NOTE | 2019-10-08 20:00 | NUR ---
PT RESTING IN BED IN POSITION OF COMFORT, BED LOW AND LOCKED, 2 SIDERAILS UP, VSS, WILL CONTINUE TO MONITOR.
--- NOTE | 2019-10-08 20:50 | NUR ---
LAB AT BEDSIDE
[2019-10-08 20:59] LABS: BASOPHILS % (AUTO) 0.9 % (0.0-2.0); EOSINOPHILS # (AUTO) 0.2 K/uL (0-0.4); EOSINOPHILS % (AUTO) 3.5 % (0.0-4.0); HEMOGLOBIN 7.2 g/dL (12.0-18.0); LYMPHOCYTES # (AUTO) 0.9 K/uL (2.0-11.5); LYMPHOCYTES % (AUTO) 18.9 % (20.5-51.1); MEAN CORPUSCULAR HEMOGLOBIN 30 pg (27-31); MEAN CORPUSCULAR HGB CONC 33 g/dL (33-37); MEAN CORPUSCULAR VOLUME 92.5 fL (80-94); MONOCYTES # (AUTO) 0.8 K/uL (0.8-1.0); MONOCYTES % (AUTO) 16.6 % (1.7-9.3); NEUTROPHILS # (AUTO) 2.8 K/uL (1.8-7.7); NEUTROPHILS % (AUTO) 60.1 % (42.2-75.2); PLATELET COUNT (AUTO) 94 K/uL (140-450); RED BLOOD CELL COUNT(AUTO) 2.38 MIL/uL (4.20-6.10); RED CELL DISTRIBUTION WIDTH 18.4 % (11.6-13.7); WHITE BLOOD COUNT (AUTO) 4.6 K/uL (4.8-10.8)
--- NOTE | 2019-10-08 21:00 | NUR ---
PT RESTING IN BED IN POSITION OF COMFORT, BED LOW AND LOCKED, 2 SIDERAILS UP, VSS, WILL CONTINUE TO MONITOR.
[2019-10-08 21:10] LABS: ANION GAP 10.8 (8-16); CREATININE 1.4 mg/dL (0.6-1.3); POTASSIUM 4.8 mmol/L (3.5-5.1)
[2019-10-08 21:13] LABS: PROTHROMBIN TIME 10.5 secs (10.8-13.4)
[2019-10-08 21:15] LABS: ALBUMIN 2.2 g/dL (3.4-5.0); TOTAL BILIRUBIN 0.3 mg/dL (0.0-1.0)
--- NOTE | 2019-10-08 22:00 | NUR ---
PT RESTING IN BED IN POSITION OF COMFORT, BED LOW AND LOCKED, 2 SIDERAILS UP, VSS, WILL CONTINUE TO MONITOR.
[2019-10-08] MEDS ORDERED: ONDANSETRON 4 MG/2 ML VIAL IM/IVP PRN (22:05)
[2019-10-08] MEDS ORDERED: HYDROcodone/APAP 5/325 MG 1 TAB TAB PO PRN (22:05)
[2019-10-08] MEDS ORDERED: DOCUSATE SODIUM 100 MG GELCAP PO PRN (22:05)
[2019-10-08] MEDS ORDERED: MORPHINE SULFATE 2 MG/ML SYR IVP PRN (22:05)
[2019-10-08] MEDS ORDERED: ACETAMINOPHEN 325 MG TAB PO PRN (22:05)
[2019-10-08] MEDS ORDERED: LORazepam 2 MG/ML VIAL IVP PRN (22:35)
[2019-10-08 22:36] LABS: MAGNESIUM 2.7 mg/dL (1.8-2.4); PHOSPHORUS 4.5 mg/dL (2.5-4.9)
--- NOTE | 2019-10-08 23:00 | NUR ---
PT RESTING IN BED IN POSITION OF COMFORT, BED LOW AND LOCKED, 2 SIDERAILS UP, VSS, WILL CONTINUE TO MONITOR.
--- NOTE | 2019-10-08 23:35 | NUR ---
PICKED BLOOD PRODUCT UP FROM LAB
--- NOTE | 2019-10-08 23:58 | NUR ---
BLOOD TRANSFUION STARTED AND BLOOD PRODUCT WAS VERIFIED BY FLACO ROSSI AND FLACO STARR. VS: HR 75; RR 13; TEMP 99.8 TEMPORAL; BP 135/79; O2 SAT % IS 98 ON A/C VENT ON 8 L/MIN WITH 50%FIO2
[2019-10-09] VITALS (8 sets, daily range): BP systolic 120–154; BP diastolic 42–95
--- NOTE | 2019-10-09 00:13 | NUR ---
15 MIN VITAL SIGN RECHECK FOR BLOOD TRANSFUSION = VS: HR 75; RR 13; TEMP 99.7 TEMPORAL; BP 131/83; O2 SAT % IS 98 ON A/C VENT ON 8 L/MIN WITH 50%FIO2
--- NOTE | 2019-10-09 00:15 | NUR ---
TRANSFERRED PT TO [facility]
--- NOTE | 2019-10-09 00:20 | NUR ---
Patient will be admitted to care of . Admited to [facility]. Will go to room 115. Belongings list completed. Report to FLACO MASSEY.
--- NOTE | 2019-10-09 00:38 | NUR ---
RECEIVED PT FROM ER NURSE. PT CAME IN [facility] WITH VENTILATOR. RESPIRATORY EVEN AND UNLABORED WITH VENTILATOR. VENTILATOR SETTING: TV500, FIO2 50%, RATE 12, FLOW 40L/MIN. TWO IV SITE NOTED. ON RAC 20G, RUNNING BLOOD, PATENT, INTACT, AND ASYMPTOMATIC. ON LH 24G, SL, PATENT, INTACT AND ASYMPTOMATIC. MRSA SWAB DONE. VS CHECKED, WITHIN PT'S BASELINE. SCAM NOTED IN SACRAL AREA, NOT OPENED. SKIN INTACT, WARM AND DRY TO TOUCH. ENHANCED ISOLATION FOR R/O COVID19. ALL SAFETY MEASUREMENT ARE MET. BED IN LOW POSITION, CALL LIGHT WITHIN REACH. WILL CONTINUE TO MONITOR.
[2019-10-09] MEDS: levETIRAcetam 100 MG/ML ORASYR GT SCH ×3 (01:33→21:44)
--- NOTE | 2019-10-09 01:33 | NUR ---
0ML RESIDUAL NOTED. GIVEN KEPPRA MD ORDERED. PT TOLERATED WELL. G-TUBE FEEDING STARTED MD ORDERED. PT TOLERATED WELL.
[2019-10-09] MEDS ORDERED: Z-GUARD PASTE TP ONE (02:05)
--- NOTE | 2019-10-09 02:58 | NUR ---
APPLIED Z-GUARD MD ORDERED. PT TOLERATED WELL.
--- NOTE | 2019-10-09 03:45 | NUR ---
STARTED 2ND PACK OF BLOOD. PT TOLERATED WELL.
--- NOTE | 2019-10-09 06:40 | NUR ---
2ND PACK OF BLOOD TRANSFUSION DONE. PT IN STABLE CONDITION.
--- NOTE | 2019-10-09 07:01 | NUR ---
PT IN STABLE CONDITION. WILL ENDORSE PT TO DAY SHIFT NURSE FOR CONTINUOUS CARE.
--- NOTE | 2019-10-09 07:20 | NUR ---
RECEIVED REPORT FROM STATISTICS TEACHER NURSE. PATIENT IN STABLE CONDITION, NO DISTRESS NOTED. SAFETY MEASURES IN PLACE, BED IN LOWEST POSITION, CALL LIGHT WITHIN REACH. WILL CONTINUE TO MONITOR.
[2019-10-09 07:51] LABS: CHOL/HDL RATIO 3.9 (1-4.5)
--- NOTE | 2019-10-09 08:20 | NUR ---
[id number]% ON FIO2 OF 50% TITRATED FIO2 TO 40% AMIE/MYCHAL NOTIFIED
--- NOTE | 2019-10-09 08:20 | NUR ---
RECEIVED ON A [employer] R860 VENTILATOR PLUGGED INTO RED OUTLET TOLERATING WELL WITHOUT ADVERSE REACTIONS NOTED TO A PORTEX DCT #8 AIRWAY SECURED WITH A TRACH TIE CUFF PRESSURE CHECKED NOTED AMBU BAG AT BEDSIDE GOOD CHEST RISE DEEP TRACHEAL SUCTION FOR LARGE THIN TO FROTHY YELLOW SECRETIONS OROPHARYNGEAL SUCTION FOR COPIOUS GELATINOUS YELLOW TO HAZY SECRETIONS AIRWAY PATENT
[2019-10-09] MEDS ORDERED: ASPIRIN 81 MG TAB.CHEW GT SCH (09:00)
--- NOTE | 2019-10-09 09:04 | NUR ---
PATIENT HAS BEEN SCREENED AND CATEGORIZED HIGH NUTRITION RISK. PATIENT WILL BE SEEN WITHIN 1-2 DAYS OF ADMISSION. 10/09/19-10/10/[address]
[2019-10-09 09:11] LABS: APPEARANCE,URINE CLEAR (CLEAR); BILIRUBIN,URINE NEGATIVE (NEGATIVE); BLOOD, URINE NEGATIVE (NEGATIVE); COLOR,URINE YELLOW (YELLOW); LEUKOCYTE ESTERASE ,URINE NEGATIVE (NEGATIVE); NITRITE, URINE NEGATIVE (NEGATIVE); UGLUCOSE NEGATIVE (NEGATIVE)
[2019-10-09] MEDS: FUROSEMIDE 40 MG/5 ML ORAL SOL UDC GT SCH (09:19)
[2019-10-09] MEDS: PANTOPRAZOLE 40 MG INJ VIAL IVP SCH (09:19)
[2019-10-09] MEDS: DOCUSATE 100 MG/10 ML UDC GT SCH ×2 (09:20→21:44)
[2019-10-09] MEDS: LEVOTHYROXINE 0.025 MG TAB GT SCH (09:20)
[2019-10-09] MEDS: FERROUS SULFATE 300 MG/5 ML UDC GT SCH ×2 (09:20→21:44)
[2019-10-09] MEDS: ASCORBIC ACID 500 MG TAB GT SCH ×2 (09:21→21:45)
[2019-10-09] MEDS: LISINOPRIL 5 MG TAB GT SCH (09:21)
[2019-10-09] MEDS: MULTIVITAMIN 1 TAB GT SCH (09:21)
[2019-10-09] MEDS: DOXAZOSIN 2 MG TAB GT SCH (09:21)
[2019-10-09 09:26] LABS: BASOPHILS % (AUTO) 0.5 % (0.0-2.0); EOSINOPHILS # (AUTO) 0.2 K/uL (0-0.4); EOSINOPHILS % (AUTO) 3.4 % (0.0-4.0); HEMATOCRIT 26.4 % (36-52); HEMOGLOBIN 8.7 g/dL (12.0-18.0); LYMPHOCYTES # (AUTO) 0.9 K/uL (2.0-11.5); LYMPHOCYTES % (AUTO) 18.5 % (20.5-51.1); MEAN CORPUSCULAR HEMOGLOBIN 30 pg (27-31); MEAN CORPUSCULAR HGB CONC 33 g/dL (33-37); MEAN CORPUSCULAR VOLUME 90.1 fL (80-94); MONOCYTES # (AUTO) 0.9 K/uL (0.8-1.0); MONOCYTES % (AUTO) 18.7 % (1.7-9.3); NEUTROPHILS # (AUTO) 2.7 K/uL (1.8-7.7); NEUTROPHILS % (AUTO) 58.9 % (42.2-75.2); PLATELET COUNT (AUTO) 92 K/uL (140-450); RED BLOOD CELL COUNT(AUTO) 2.93 MIL/uL (4.20-6.10); RED CELL DISTRIBUTION WIDTH 17.1 % (11.6-13.7); WHITE BLOOD COUNT (AUTO) 4.6 K/uL (4.8-10.8)
[2019-10-09] MEDS ORDERED: CRUSHER, PILL MC ONE (09:34)
--- NOTE | 2019-10-09 09:35 | NUR ---
SCHEDULED MEDICATIONS ADMINISTERED. MEDICATION EDUCATION PROVIDED ON SIDE EFFECTS. PT TOLERATED WELL. WILL CONTINUE TO MONITOR.
[2019-10-09 09:45] LABS: ANION GAP 10.3 (8-16); CARBON DIOXIDE 32.2 mmol/L (21-32); CREATININE 1.2 mg/dL (0.6-1.3); POTASSIUM 4.5 mmol/L (3.5-5.1)
--- NOTE | 2019-10-09 09:48 | NUR ---
RESTING WELL NO DISTRESS NOTED GOOD CHEST RISE
[2019-10-09 09:49] LABS: MAGNESIUM 2.9 mg/dL (1.8-2.4); PHOSPHORUS 4.6 mg/dL (2.5-4.9)
[2019-10-09] MEDS: TIMOLOL OP 0.5% 5 ML BTL OP SCH (09:56)
--- NOTE | 2019-10-09 11:02 | NUR ---
METALWORKING SPECIALIST NOTE: Basic Screen: Yes High Risk DC Screen [place]: FARIBA FRANCO Home Relationship: SON Pre-Admission Living Arrangements: SNF Other: C[facility] Prior ADL Total/Dependent Current Home Health Name/Tel: N/A Current DME/02 Name/Tel: VENT, OXYGEN Current Hospice Name/Tel: N/A Current Dialysis Name/Tel: N/A Healthcare Decision Maker: Next of Kin Advance Directive No Physician Orders for Life Sustaining Treatment Form No Patient/Family Have Educational Needs No Discipline: Case Mgt/Social Svcs Tentative Discharge Plan/Destination: SNF/ECF Other: [facility] Will require assistance post discharge: No Referred to [place]: No Tentative Discharge Plan Summary: PATIENT IS A 69-YEAR-OLD MALE ADMITTED FOR ANEMIA. PATIENT HAS PMHX OF CHRONIC RESPIRATORY FAILURE W/ TRACH DEPENDENCE, CEREBELLAR HEMORRHAGIC CVA, DYSPHAGIA W/ GTUBE DEPENDENCE, HYPERTENSION, ANEMIA OF CHRONIC DISEASE, EPILEPSY, GERD, GLAUCOMA, AND BPH W/ OBSTRUCTIVE UROPATHY. PATIENT WAS ADMITTED FROM [facility] [place]. SW CONTACTED MINESH FROM [facility] [place]. PER MINESH, PATIENT IS PRISON AND IS ON A BED HOLD. MINESH VERIFIED PATIENT'S HEALTHCARE DECISION MAKER, FARIBA FRANCO AND STATED THAT PATIENT REQUIRES TOTAL ASSISTANCE WITH ADLS. TENTATIVE DISCHARGE PLAN IS FOR PATIENT TO RETURN TO [facility] [place]. NO FURTHER NEEDS IDENTIFIED. Signature: RAMILA RAMSEY Date: Oct 09, 2019 Time: 11:00
[2019-10-09] MEDS ORDERED: ALBUTEROL SULFATE/IPRATROPIU 3 ML SOL IH PRN (11:05)
--- NOTE | 2019-10-09 11:08 | NUR ---
DC PLANNIN YRS OLD MALE PATIENT WAS ADMITTED FROM [facility] WITH A DX OF ANEMIA H/H 7.2/22.0 . PT HAS A HISTORY OF CHRONIC RESP FAILURE TRACH DEPENDENT, CVA G-TUBE, HTN, ANEMIA, EPILEPSY GERD, ,GLAUCOMA AND BPH. CXR SHOWED SMALL TO MODERATE RIGHT PLEURAL EFFUSION WITH ADJACENT ATELECTASIS. COVID TEST PENDING. RT TO FOLLOW, ADMINISTERED 2 UNITS PRBC , IVF. CONSULTED WITH [facility] SHE[facility]AN FOR CHRONIC RESP FAILURE. WOUND CARE CONSULTED FOR SACRAL WOUND. DC PLAN TO GO BACK TO [facility] WHEN STABLE. CM TO FOLLOW Addendum: 10/10/19 at 1214 by Renae Hunt CM DC PLANNING: SEEN BY [facility] C-XRAY SHOWED LARGE PLEURAL EFFUSION ORDERED THORACENTESIS TO BE DONE BY IR TODAY. CONTINUE IV DIURESIS AND IV ABX. DC PLAN TO GO BACK TO [facility] WHEN STABLE . CM TO FOLLOW. Addendum: 10/12/19 at 1117 by Yariel Ring MARIETTA SPOKE TO MARTY FROM [facility] [phone]. PER MARTY, PATIENT WILL BE RETURNING TO ROOM 2B UNDER PHYSICIAN DR. JEFFREY. MARIETTA CONTACTED [facility] YOVANY [phone] FOR AUTHORIZATION. MARIETTA LEFT . MARIETTA WILL FOLLOW UP. Addendum: 10/12/19 at 1229 by Yariel Ring SS MARIETTA CONTACTED NILO FROM [facility] [phone]. NILO PROVIDED TRANSPORTATION AUTH: [id number] AND FACILITY AUTH: [id number]. MARIETTA CONTACTED FRANCESCO FROM [facility] . MARIETTA ARRANGED FOR TRANSPORTATION AT 1530. CHARGE NURSE WAS NOTIFIED.
--- NOTE | 2019-10-09 11:22 | NUR ---
PATIENT IS IN BED ASLEEP, RISE AND FALL OF CHEST NOTED. NO DISTRESS NOTED, FLACC 0. SAFETY MEASURES IN PLACE, BED IN LOWEST POSITION, CALL LIGHT WITHIN REACH. WILL CONTINUE TO MONITOR.
--- NOTE | 2019-10-09 13:20 | NUR ---
ROUNDING, PT IN BED RESTING QUIETLY. NO SIGNS OF DISTRESS NOTED. WILL CONTINUE TO MONITOR.
--- NOTE | 2019-10-09 13:55 | NUR ---
NO SOB NOTED GOOD CHEST RISE DEEP TRACHEAL SUCTION FOR MODERATE THIN YELLOW SECRETIONS OROPHARYNGEAL SUCTION FOR LARGE GELATINOUS PALE YELLOW TO HAZY SECRETIONS AIRWAY PATENT
--- NOTE | 2019-10-09 14:30 | NUR ---
10/09/19 RD INITIAL ASSESSMENT COMPLETED PLEASE REFER TO NUTRITION ASSESSMENT UNDER CARE ACTIVITY FOR ESTIMATED NUTRITIONAL NEEDS. 1. CONTINUE JEVITY 1.2 @ 65 ML/HR X 24 HR -THIS WILL PROVIDE 1872 CALORIES AND 86 GM OF PROTEIN WHICH MEETS 100% OF NUTRIENT NEEDS 2. CONTINUE FREE WATER FLUSH OF 200 ML Q6H 3. CONTINUE MULTIVITAMIN AND VITAMIN C FOR WOUND HEALING 4. RD TO FOLLOW-UP 2-3 DAYS, HIGH RISK LORNE CATHERINE RD
--- NOTE | 2019-10-09 15:30 | NUR ---
PT IS IN BED, NO DISTRESS NOTED, FLACC -0. SUCTIONED PATIENT MOUTH, HE CONTINUES TO HAVE A LOT OF COPIOUS SECRETIONS IN HIS MOUTH, MORE THAN IN HIS LUNGS. VENT SETTINGS CORRECT, VITAL SIGNS STABLE. TURNED AND REPOSITIONED PATIENT. PATIENT CHAD HAS NOT HAD A BM ON DAY SHIFT, AWAITING BM TO DO OCCULT BLOOD SAMPLE ORDERED. LINK IS DRAINING WELL, CLEAR YELLOW URINE. SAFETY MEASURES IN PLACE, WILL CONTINUE TO MONITOR.
--- NOTE | 2019-10-09 16:00 | NUR ---
NO INDICATIONS FOR SOB NOTED GOOD CHEST RISE
--- NOTE | 2019-10-09 17:17 | NUR ---
PT IS RESTING QUIETLY IN BED, NO DISTRESS NOTED. WILL CONTINUE TO MONITOR.
--- NOTE | 2019-10-09 19:19 | NUR ---
ENDORSED PATIENT TO WEIGHT LOSS PHYSICIAN NURSE FOR CONTINUITY OF CARE. PATIENT IN STABLE CONDITION.
--- NOTE | 2019-10-09 19:20 | NUR ---
RECEIVED REPORT FROM ENGAGEMENT MANAGER NURSE FOR CONTINUITY OF CARE. PATIENT IN STABLE CONDITION. RESPIRATIONS EVEN AND UNLABORED, TRACH TO VENT. IV INTACT AND PATENT. SAFETY MEASURES IN PLACE. BED IN LOW POSITION. BED LOCKED. BED ALARM ON. CALL LIGHT WITHIN REACH. WILL CONTINUE TO MONITOR. Addendum: 10/09/19 at 2002 by Clara Sexton RN RECEIVED REPORT FROM DAY SHIFT NURSE.
[2019-10-09] MEDS: ALBUTEROL SULFATE/IPRATROPIU 3 ML SOL IH SCH (19:30)
[2019-10-09] MEDS: CYANOCOBALAMIN 100 MCG TAB GT SCH (21:44)
[2019-10-09] MEDS: ATORVASTATIN 20 MG TAB GT SCH (21:44)
--- NOTE | 2019-10-09 21:44 | NUR ---
GAVE ORDERED DUE MEDICATIONS AT THIS TIME. PATIENT TOLERATED WELL.
[2019-10-09] MEDS: SENNA 8.6 MG TAB GT SCH (21:45)
--- NOTE | 2019-10-09 22:00 | NUR ---
COVID 19 TEST ADMINISTERED AND TAKEN TO LAB AT THIS TIME. PATIENT TOLERATED WELL.
[2019-10-10] VITALS: BP 148/84
--- NOTE | 2019-10-10 00:50 | NUR ---
PATIENT SLEEPING AT THIS TIME. EASY AROUSED. RESPIRATIONS EVEN AND UNLABORED. BED IN LOW POSITION. BED ALARM ON. BED LOCKED. CALL LIGHT WITHIN REACH. WILL CONTINUE TO MONITOR.
--- NOTE | 2019-10-10 02:30 | NUR ---
PATIENT SLEEPING AT THIS TIME. RESPIRATIONS EVEN AND UNLABORED. BED IN LOW POSITION. BED ALARM ON. BED LOCKED. CALL LIGHT WITHIN REACH. WILL CONTINUE TO MONITOR.
[2019-10-10 04:00] VITALS: BP 149/82
--- NOTE | 2019-10-10 04:00 | NUR ---
SUCTIONED PATIENT AFTER CREAMY THICK SPUTUM IN MOUTH. PATIENT TOLERATED WELL.
[2019-10-10 07:00] LABS: ANION GAP 6.3 (8-16); POTASSIUM 4.3 mmol/L (3.5-5.1)
[2019-10-10 07:11] LABS: BASOPHILS % (AUTO) 0.3 % (0.0-2.0); EOSINOPHILS # (AUTO) 0.2 K/uL (0-0.4); EOSINOPHILS % (AUTO) 3.9 % (0.0-4.0); HEMATOCRIT 27.1 % (36-52); LYMPHOCYTES # (AUTO) 0.9 K/uL (2.0-11.5); LYMPHOCYTES % (AUTO) 19.2 % (20.5-51.1); MEAN CORPUSCULAR HEMOGLOBIN 30 pg (27-31); MEAN CORPUSCULAR HGB CONC 33 g/dL (33-37); MEAN CORPUSCULAR VOLUME 90.6 fL (80-94); MONOCYTES # (AUTO) 0.7 K/uL (0.8-1.0); NEUTROPHILS # (AUTO) 2.8 K/uL (1.8-7.7); NEUTROPHILS % (AUTO) 61.6 % (42.2-75.2); PLATELET COUNT (AUTO) 80 K/uL (140-450); RED CELL DISTRIBUTION WIDTH 17.5 % (11.6-13.7); WHITE BLOOD COUNT (AUTO) 4.5 K/uL (4.8-10.8)
[2019-10-10 07:17] LABS: FOLIC ACID 14.6 ng/mL (>3.0)
[2019-10-10] MEDS: ALBUTEROL SULFATE/IPRATROPIU 3 ML SOL IH SCH ×2 (07:17→19:07)
--- NOTE | 2019-10-10 07:22 | NUR ---
GAVE REPORT TO DAY SHIFT NURSE FOR CONTINUITY OF CARE. PATIENT IN STABLE CONDITION.
--- NOTE | 2019-10-10 07:23 | NUR ---
RECEIVED PATIENT FROM FLACO SIMON FOR CONTINUITY OF CARE. PATIENT IS SLEEPING AT THIS TIME. RESPIRATIONS EVEN AND UNLABORED, TRACH TO VENT DEPENDENT. VISIBLE CHEST RISE AND FALL NOTED. ON TELE MONITORING. ANASARCA. ABDOMEN SOFT AND NONTENDER. GTUBE FEEDING RUNNING JEVITY 1.2 AT 65 ML/HR, H2O FLUSH OF 50 ML Q4H. GTUBE FEEDING RUNNING WELL. SKIN WARM, DRY, AND INTACT. IV RIGHT AC G20, SALINE LOCK. IV L HAND G24, SALINE LOCK. BEDBOUND. ON A DROPLET PRECAUTION FOR COVID-19 R/O. FALL PRECAUTION IN PLACE. BED IN LOW POSITION. CALL LIGHT IS WITHIN REACH. WILL CONTINUE TO MONITOR.
--- NOTE | 2019-10-10 07:45 | NUR ---
DR. LONG AND THE RESIDENT DOCTOR MADE ROUNDS.
[2019-10-10 08:00] VITALS: BP 110/56
[2019-10-10] MEDS: DOCUSATE 100 MG/10 ML UDC GT SCH ×2 (09:04→20:28)
[2019-10-10] MEDS: FERROUS SULFATE 300 MG/5 ML UDC GT SCH ×2 (09:05→20:28)
[2019-10-10] MEDS: FUROSEMIDE 40 MG/5 ML ORAL SOL UDC GT SCH (09:06)
[2019-10-10] MEDS: ASCORBIC ACID 500 MG TAB GT SCH ×2 (09:06→20:28)
[2019-10-10] MEDS: DOXAZOSIN 2 MG TAB GT SCH (09:06)
[2019-10-10] MEDS: PANTOPRAZOLE 40 MG INJ VIAL IVP SCH (09:07)
[2019-10-10] MEDS: levETIRAcetam 100 MG/ML ORASYR GT SCH ×2 (09:07→20:28)
[2019-10-10] MEDS: LEVOTHYROXINE 0.025 MG TAB GT SCH (09:07)
[2019-10-10] MEDS: TIMOLOL OP 0.5% 5 ML BTL OP SCH (09:09)
[2019-10-10] MEDS: MULTIVITAMIN 1 TAB GT SCH (09:10)
[2019-10-10] MEDS: LISINOPRIL 5 MG TAB GT SCH (09:10)
--- NOTE | 2019-10-10 09:39 | NUR ---
AM MEDS GIVEN VIA G TUBE. GASTRIC RESIDUAL OF 5 ML. PATIENT TOLERATED MEDICATIONS WELL. ORAL CARE WAS PROVIDED WITH MOUTH SUCTION. PATIENT IS SHOWING NO SIGNS OF DISTRESS, NO SOB, AND UNLABORED BREATHING. CHEST RISE IS SYMMETRICAL. WILL CONTINUE TO MONITOR.
--- NOTE | 2019-10-10 09:44 | NUR ---
PER LAB, PATIENT IS POSITIVE FOR MRSA NARES. WILL INFORM CHARGE NURSE AND RESIDENT DOCTOR Addendum: 10/10/19 at 1040 by Princess Chloe Nunez RN CHARGE NURSE AND RESIDENT DOCTOR AWARE AT 104
--- NOTE | 2019-10-10 10:02 | NUR ---
TELEPHONE CONSENT GIVEN BY JOAN LINK - SON OF PATIENT, FOR THORACENTESIS. NO FURTHER QUESTIONS ASKED.
--- NOTE | 2019-10-10 10:34 | NUR ---
PATIENT'S O2 SAT WAS 90%. SUCTIONED PATIENT AND O2 SAT WAS 100% AFTER. CREAMY SECRETION EXPELLED FROM THE PATIENT. ORAL CARE AND ORAL SUCTION WAS PERFORMED. PATIENT IS STABLE AND RESTING.
[2019-10-10] MEDS: MUPIROCIN CA NASAL 2% 1GM TUBE NS SCH (11:48)
[2019-10-10] MEDS: CHLORHEXADINE GLUC 2% CLOTH TP SCH (11:49)
--- NOTE | 2019-10-10 11:49 | NUR ---
CHG BATH GIVEN. BACTRIM GIVEN TO BOTH NARES FOR MRSA. EXPLAINED MEDICATION. THICK, CLEAR SECRETIONS IN THE MOUTH - SUCTIONED PATIENT. O2SAT 100%, HR 43. PATIENT IS IN STABLE CONDITION.
[2019-10-10 12:00] VITALS: BP 130/84
--- NOTE | 2019-10-10 12:30 | NUR ---
THORACENTESIS IS BEING DONE AT THIS TIME. TIME OUT VERIFICATION DONE. RADIOLOGIST, RT, AND RESIDENT DOCTORS AT BEDSIDE. PATIENT IS COMFORTABLE, LEFT SIDE-LYING
--- NOTE | 2019-10-10 13:50 | NUR ---
SENT THORACENTESIS SPECIMEN TO THE LAB.
--- NOTE | 2019-10-10 13:55 | NUR ---
WOUND CARE ASSESSMENT DONE. HARMONY WOUND CARE NURSE, EVALUATED WOUND. PICTURE TAKEN. DEEP SUCTIONED PATIENT PRIOR TO TURNING. REPOSITIONED TO LEFT LATERAL. O2SAT 98%, HR 41. WILL CONTINUE TO MONITOR.
--- NOTE | 2019-10-10 14:00 | NUR ---
WOUND CARE EVALUATION NOTE: REASON FOR EVALUATION: LOW MARISELA SCALE AND SACRAL WOUND SKIN ASSESSMENT DONE WITH THIS 69 Y/O MALE PT ADMITTED WITH UNKNOW HISTORY PRESSURE ULCER WOUND. PT IS AWAKE. SKIN IS WARM AND DRY, BLE NO HAIR GROWTH, NO EDEMA. DORSAL PEDAL PULSES PRESENT AND NORMAL. CAPILLARY REFILLED < 2 SEC. X 10 TOES. INCONTINENT OF BOWEL X1 DURING ASSESSMENT. F/C PATENT WITH SMALL AMOUNT YELLOW COLOR URINE OUT PUT OBSERVED. PLAN OF CARE DISCUSSED WITH PRIMARY RN. INTEGUMENTARY: -TRACH SITE PARMJIT STOMA SKIN DRY AND CLEAN. SKIN INTACT. -GT SITE PARMJIT STOMA WITH SKIN INTACT. -PRESSURE ULCER UN-STAGEABLE TO SACROCOCCYX DRY BROWN SCABS IRREGULAR SHAPE PARMJIT-WOUND PURPLE IN COLOR FURTHER DAMAGE INDICATED, PARMJIT-WOUND SKIN INTACT ENTIRE AREA MEASURED 7X7CM -RIGHT AND LEFT HEEL THIN CALLUSES RECOMMENDATIONS: -PAINT SACRALCOCCYX DRY SCAB WITH BETADINE SOLUTION APPLY FOAM DRESSING TO SACROCOCCYX DAILY AND PRN IF SOILING PREVENTION -APPLY HEEL PROTECTORS TO BOTH HEELS AT ALL TIMES -OFFLOAD BILATERAL HEELS BY PLACING PILLOWS UNDER CALVES UNLESS OTHERWISE CONTRAINDICATED -PRESSURE REDISTRIBUTION SURFACE THERAPY -TURN AND REPOSITION Q2H, OFFLOAD SACRALCOCCYX AND BUTTOCKS BY TURNING RIGHT AND LEFT -CONTINUE TO FOLLOW RD RECOMMENDATIONS ALL ABOVE RECOMMENDATIONS DISCUSSED WITH PRIMARY RN. PLEASE CONTACT WOUND CARE NURSE FOR ANY QUESTION AND CHANGE OF WOUND CONDITION.
--- NOTE | 2019-10-10 14:10 | NUR ---
THORACENTESIS COMPLETED. REPOSITIONED TO RIGHT SIDE-LYING. O2SAT 99%, HR 43. BED IN LOW POSITION. CALL LIGHT IS WITHIN REACH. WILL CONTINUE TO MONITOR. Addendum: 10/10/19 at 1527 by Princess Chloe Nunez RN CORRECT TIME: 1310
--- NOTE | 2019-10-10 15:21 | NUR ---
PATIENT ASLEEP. TRACH TO VENT. COMFORTABLE AT THIS TIME. O2SAT 95%. HR 41. BED IN LOW POSITION. CALL LIGHT IS WITHIN REACH. WILL CONTINUE TO MONITOR
[2019-10-10 16:00] VITALS: BP 136/84
[2019-10-10] MEDS ORDERED: GAUZE TP PRN (16:20)
--- NOTE | 2019-10-10 16:30 | NUR ---
SUCTIONED THE PATIENT ORALLY AND THROUGH THE TRACH WHICH PRODUCED A SMALL AMOUNT OF WHITE CREAMY SECRETIONS. PATIENT'S O2 SAT WAS 100% DURING THE TIME OF SUCTION. CHEST RISE AND FALL SYMMETRICAL. NO SOB OR SIGNS OF DISTRESS.
[2019-10-10 16:51] LABS: APPEARANCE,UNSPUN,BODY FLUID HAZY (CLEAR); SPECIMENTYPE,BODY FLUID THORACENTESIS
[2019-10-10 16:52] LABS: APPEARANCE,SPUN,BODY FLUID CLEAR (CLEAR); COLOR,BODY FLUID YELLOW (LT YELLOW)
[2019-10-10 16:53] LABS: TOTAL VOLUME,BODY FLUID 1500 mL
[2019-10-10 17:06] LABS: GLUCOSE,BODY FLUID 128 mg/dL
[2019-10-10 17:14] LABS: RBC, BODY FLUID 22166 /cu. mm.; WBC, BODY FLUID 0 /cu. mm.
--- NOTE | 2019-10-10 17:30 | NUR ---
PT NOT IN ANY DISTRESS AT THIS TIME. TRACH IS SECURE WITH A PATENT AIRWAY. VENT ALARMS ON AND FUNCTIONING.
--- NOTE | 2019-10-10 18:14 | NUR ---
NO BM THE WHOLE SHIFT, WAS UNABLE TO COLLECT OCCULT BLOOD. WILL ENDORSE IT TO SECURITY DIRECTOR RN
--- NOTE | 2019-10-10 19:15 | NUR ---
RECEIVED PATIENT ON CHARTED SETTINGS, RESP. TREATMENT GIVEN ORDERED. AMBU BAG BEDSIDE, VENT PLUGGED INTO RED OUTLET, CONTINUE TO MONITOR PATIENT.
--- NOTE | 2019-10-10 19:23 | NUR ---
RECEIVED PATIENT IN STABLE CONDITION FROM AM SHIFT NURSE FOR CONTINUITY OF CARE. TRACH TO VENT. AIRWAY PATENT. RESPIRATIONS EVEN, UNLABORED. SUCTIONED CLEAR, WHITE SECRETIONS. NO S/S RESPIRATORY DISTRESS. SKIN WARM, DRY. SALINE LOCK TO LEFT HAND 24G PATENT/INTACT. SALINE LOCK TO RIGHT AC 20G PATENT/INTACT. FLACC 0. NO S/S ACUTE DISTRESS. ABDOMEN SOFT, NONTENDER. CONTINUES ON ENTERAL FEEDING JEVITY 1.2 65 ML/HR, TOLERATING WELL. NO RESIDUAL NOTED. HOB UP 30 DEGREES. LINK CATHETER PATENT WITH YELLOW URINE DRAINING TO GRAVITY. SAFETY PRECAUTIONS IN PLACE. ISOLATION PRECAUTIONS OBSERVED BY ALL STAFF.
--- NOTE | 2019-10-10 19:23 | NUR ---
ENDORSED PATIENT TO SUPERVISORY AIR INTERCEPT CONTROLLER NURSE FOR CONTINUITY OF CARE. PATIENT IS IN STABLE CONDITION.
[2019-10-10 20:00] VITALS: BP 137/78
[2019-10-10] MEDS: CYANOCOBALAMIN 100 MCG TAB GT SCH (20:28)
[2019-10-10] MEDS: ATORVASTATIN 20 MG TAB GT SCH (20:28)
[2019-10-10] MEDS: SENNA 8.6 MG TAB GT SCH (20:28)
--- NOTE | 2019-10-10 21:39 | NUR ---
PATIENT REPOSITIONED FOR COMFORT. DUE MEDS GIVEN. FLACC 0. CALL LIGHT WITHIN REACH.
--- NOTE | 2019-10-10 23:26 | NUR ---
MADE ROUNDS. SUCTIONED WHITE SECRETIONS FROM TRACH. REPOSITIONED TO MAINTAIN SKIN INTEGRITY. NO S/S ACUTE DISTRESS. FLACC 0. CALL LIGHT WITHIN REACH. ISOLATION PRECAUTIONS OBSERVED BY STAFF.
[2019-10-11] VITALS: BP 124/71
[2019-10-11 00:30] LABS: LDH,BODY FLUID 128 U/L
--- NOTE | 2019-10-11 01:15 | NUR ---
PATIENT CONTINUES IN STABLE CONDITION. FLACC 0. BRADYCARDIA NOTED WITH HEART RATE RANGING FROM 40-50 BPM. PATIENT SUCTIONED AND REPOSITIONED. ISOLATION PRECAUTIONS OBSERVED. CALL LIGHT WITHIN REACH.
--- NOTE | 2019-10-11 03:17 | NUR ---
PATIENT RESTING COMFORTABLY IN BED. FLACC 0. NO S/S ACUTE DISTRESS. CALL LIGHT WITHIN REACH. ISOLATION PRECAUTIONS OBSERVED.
[2019-10-11 04:00] VITALS: BP 135/67
--- NOTE | 2019-10-11 05:18 | NUR ---
PATIENT APPEARS COMFORTABLE ON CHARTED SETTINGS, VENT IS PLUGGED INTO RED OUTLET, AMBU BAG BEDSIDE, CONTINUE TO MONITOR.
--- NOTE | 2019-10-11 05:56 | NUR ---
PATIENT SUCTIONED AND REPOSITIONED. NO S/S ACUTE DISTRESS. FLACC 0. CALL LIGHT WITHIN REACH. SAFETY PRECAUTIONS IN PLACE. ISOLATION PRECAUTIONS OBSERVED BY ALL STAFF.
[2019-10-11 06:44] LABS: BASOPHILS % (AUTO) 0.6 % (0.0-2.0); EOSINOPHILS # (AUTO) 0.2 K/uL (0-0.4); HEMATOCRIT 25.8 % (36-52); HEMOGLOBIN 8.5 g/dL (12.0-18.0); LYMPHOCYTES # (AUTO) 0.8 K/uL (2.0-11.5); LYMPHOCYTES % (AUTO) 26.6 % (20.5-51.1); MEAN CORPUSCULAR HEMOGLOBIN 30 pg (27-31); MEAN CORPUSCULAR HGB CONC 33 g/dL (33-37); MEAN CORPUSCULAR VOLUME 90.1 fL (80-94); MONOCYTES # (AUTO) 0.4 K/uL (0.8-1.0); MONOCYTES % (AUTO) 12.4 % (1.7-9.3); NEUTROPHILS # (AUTO) 1.7 K/uL (1.8-7.7); NEUTROPHILS % (AUTO) 55.4 % (42.2-75.2); PLATELET COUNT (AUTO) 66 K/uL (140-450); RED BLOOD CELL COUNT(AUTO) 2.86 MIL/uL (4.20-6.10); RED CELL DISTRIBUTION WIDTH 17.2 % (11.6-13.7); WHITE BLOOD COUNT (AUTO) 3.1 K/uL (4.8-10.8)
[2019-10-11] MEDS: ALBUTEROL SULFATE/IPRATROPIU 3 ML SOL IH SCH ×2 (06:55→19:30)
[2019-10-11 07:02] LABS: ANION GAP 9.5 (8-16); CARBON DIOXIDE 30.3 mmol/L (21-32); CREATININE 0.9 mg/dL (0.6-1.3); POTASSIUM 3.8 mmol/L (3.5-5.1)
--- NOTE | 2019-10-11 07:19 | NUR ---
RECEIVED BEDSIDE SHIFT REPORT FROM WATCHER AUTOMAT LONG GOODS NURSE FOR CONTINUATION OF CARE.
[2019-10-11 08:00] VITALS: BP 135/80
[2019-10-11] MEDS: DOXAZOSIN 2 MG TAB GT SCH (09:51)
[2019-10-11] MEDS: levETIRAcetam 100 MG/ML ORASYR GT SCH ×2 (09:52→20:12)
[2019-10-11] MEDS: FERROUS SULFATE 300 MG/5 ML UDC GT SCH ×2 (09:52→20:11)
[2019-10-11] MEDS: DOCUSATE 100 MG/10 ML UDC GT SCH ×2 (09:52→20:11)
[2019-10-11] MEDS: FUROSEMIDE 40 MG/5 ML ORAL SOL UDC GT SCH (09:52)
[2019-10-11] MEDS: LEVOTHYROXINE 0.025 MG TAB GT SCH (09:53)
[2019-10-11] MEDS: PANTOPRAZOLE 40 MG INJ VIAL IVP SCH (09:53)
[2019-10-11] MEDS: ASCORBIC ACID 500 MG TAB GT SCH ×2 (09:53→20:11)
[2019-10-11] MEDS: MULTIVITAMIN 1 TAB GT SCH (09:53)
[2019-10-11] MEDS: LISINOPRIL 5 MG TAB GT SCH (09:54)
[2019-10-11] MEDS: TIMOLOL OP 0.5% 5 ML BTL OP SCH (09:55)
--- NOTE | 2019-10-11 10:00 | NUR ---
MEDICATIONS ADMINISTERED THROUGH GTUBE, TOLERATED WELL. GTUBE FEEDING RUNNING, PATENT, PATIENT TOLERATING WELL. WILL CONTINUE TO MONITOR.
[2019-10-11 12:00] VITALS: BP 132/75
--- NOTE | 2019-10-11 12:00 | NUR ---
REPOSITIONED WITH HELP FROM BUCKLE COVERER, 10 ML'S THICK SANGUINOUS SECRETIONS SUCTIONED FROM NOSTRILS AND MOUTH. PATIENT COUGHS AND HAS TROUBLE BREATHING WHEN BED IS FLATTENED. WILL CONTINUE TO MONITOR.
[2019-10-11] MEDS: MUPIROCIN CA NASAL 2% 1GM TUBE NS SCH (12:15)
[2019-10-11] MEDS: CHLORHEXADINE GLUC 2% CLOTH TP SCH (12:16)
[2019-10-11] MEDS: GAUZE TP SCH (12:16)
[2019-10-11 13:02] LABS: FREE T4 (FREE THYROXINE) 0.85 ng/dL (0.76-1.46); THYROID STIMULATING HORMONE 4.8 uIU/mL (0.34-3.74)
--- NOTE | 2019-10-11 15:00 | NUR ---
PATIENT IS RESTING IN BED, OBSERVED CHEST RISE AND FALL. VENT SETTINGS ARE WNL. WILL CONTINUE TO MONITOR.
[2019-10-11 16:00] VITALS: BP 147/77
--- NOTE | 2019-10-11 19:20 | NUR ---
BEDSIDE SHIFT REPORT GIVEN TO TEST KITCHEN HOME ECONOMIST NURSE FOR CONTINUATION OF CARE.
--- NOTE | 2019-10-11 19:21 | NUR ---
RECEIVED PATIENT FROM AM SHIFT NURSE FOR CONTINUITY OF CARE. TRACH TO VENT. AIRWAY PATENT. RESPIRATIONS EVEN, UNLABORED. WITH THICK WHITE SECRETIONS. NO S/S RESPIRATORY DISTRESS. SKIN WARM, DRY. SALINE LOCK TO LEFT HAND 24G PATENT/INTACT. SALINE LOCK TO RIGHT AC 20G PATENT/INTACT. FLACC 0. NO S/S ACUTE DISTRESS. ABDOMEN SOFT, NONTENDER. CONTINUES ON ENTERAL FEEDING JEVITY 1.2 65 ML/HR, TOLERATING WELL. NO RESIDUAL NOTED. HOB UP 30 DEGREES. LINK CATHETER PATENT WITH YELLOW URINE DRAINING TO GRAVITY. SAFETY PRECAUTIONS IN PLACE. ISOLATION PRECAUTIONS OBSERVED BY ALL STAFF.
--- NOTE | 2019-10-11 19:30 | NUR ---
CHECKED THE RESIDUAL 0 ML, NOTED. PATENT, AND INTACT
[2019-10-11 20:00] VITALS: BP 132/12
--- NOTE | 2019-10-11 20:00 | NUR ---
CLEANED PT AND TURNED. PT OFFLOADED PRESSURE AREAS; NO BM YET; NOT SOILED
[2019-10-11] MEDS: ATORVASTATIN 20 MG TAB GT SCH (20:11)
[2019-10-11] MEDS: FUROSEMIDE 20 MG/2 ML VIAL IVP SCH (20:12)
[2019-10-11] MEDS: SENNA 8.6 MG TAB GT SCH (20:12)
[2019-10-11] MEDS: CYANOCOBALAMIN 100 MCG TAB GT SCH (20:16)
--- NOTE | 2019-10-11 22:00 | NUR ---
CLEANED PT AND TURNED. PT OFFLOADED PRESSURE AREAS; NO BM YET; NOT SOILED
[2019-10-12] VITALS: BP 143/80
--- NOTE | 2019-10-12 02:00 | NUR ---
CLEANED PT AND TURNED. PT OFFLOADED PRESSURE AREAS; NO BM YET; NOT SOILED
[2019-10-12 04:00] VITALS: BP 142/80
--- NOTE | 2019-10-12 04:00 | NUR ---
CLEANED PT AND TURNED. PT OFFLOADED PRESSURE AREAS; NO BM YET; NOT SOILED
[2019-10-12] MEDS ORDERED: TIM.5OS OP (06:52)
[2019-10-12] MEDS ORDERED: MUPI2CRE22 NS (06:52)
[2019-10-12] MEDS ORDERED: LEVO0.0211 GT (06:52)
[2019-10-12] MEDS ORDERED: CHLO118S2 TP (06:52)
--- NOTE | 2019-10-12 06:54 | NUR ---
PT IN STABLE CONDITION , PT ON VENT TO TRACH; AO X 0, TRACKS WITH EYES, NON VERBAL ON BEDREST. WILL ENDORSE TO NEXT SHIFT.
[2019-10-12 06:56] LABS: ANION GAP 8.6 (8-16); CARBON DIOXIDE 32.2 mmol/L (21-32); CREATININE 0.9 mg/dL (0.6-1.3); POTASSIUM 3.8 mmol/L (3.5-5.1)
[2019-10-12 06:58] LABS: BASOPHILS % (AUTO) 0.9 % (0.0-2.0); EOSINOPHILS # (AUTO) 0.1 K/uL (0-0.4); EOSINOPHILS % (AUTO) 4.9 % (0.0-4.0); HEMATOCRIT 26.7 % (36-52); HEMOGLOBIN 8.8 g/dL (12.0-18.0); LYMPHOCYTES # (AUTO) 0.7 K/uL (2.0-11.5); MEAN CORPUSCULAR HEMOGLOBIN 30 pg (27-31); MEAN CORPUSCULAR HGB CONC 33 g/dL (33-37); MEAN CORPUSCULAR VOLUME 90.5 fL (80-94); MONOCYTES # (AUTO) 0.4 K/uL (0.8-1.0); MONOCYTES % (AUTO) 11.8 % (1.7-9.3); NEUTROPHILS # (AUTO) 1.7 K/uL (1.8-7.7); NEUTROPHILS % (AUTO) 58.4 % (42.2-75.2); RED BLOOD CELL COUNT(AUTO) 2.95 MIL/uL (4.20-6.10); RED CELL DISTRIBUTION WIDTH 17.3 % (11.6-13.7)
[2019-10-12 07:02] LABS: MAGNESIUM 2.4 mg/dL (1.8-2.4); PHOSPHORUS 4.1 mg/dL (2.5-4.9)
[2019-10-12 07:07] LABS: PLATELET COUNT (AUTO) 70 K/uL (140-450)
--- NOTE | 2019-10-12 07:10 | NUR ---
RECEIVED PATIENT FROM FLIGHT TEST SHOP MECHANIC NURSE FOR CONTINUITY OF CARE. TRACH TO VENT. RESPIRATIONS EVEN, UNLABORED. WITH THICK WHITE SECRETIONS. NO S/S RESPIRATORY DISTRESS. SKIN WARM, DRY. SALINE LOCK TO LEFT HAND 24 G PATENT/INTACT. SALINE LOCK TO RIGHT AC 20G PATENT/INTACT. FLACC 0. NO S/S ACUTE DISTRESS. ABDOMEN FIRM, NONTENDER. PT HAS TUBE FEEDING JEVITY 1.2 @ 65 ML/HR, TOLERATING WELL. NO RESIDUAL NOTED. HOB UP 30 DEGREES. LINK CATHETER PATENT WITH YELLOW URINE DRAINING TO GRAVITY. SAFETY AND CONTACT PRECAUTIONS IN PLACE. BED ON LOWEST SETTING WITH ALARM AND BRAKES ON. CALL LIGHT WITHIN REACH, WILL CONTINUE TO MONITOR PATIENT.
[2019-10-12] MEDS: ALBUTEROL SULFATE/IPRATROPIU 3 ML SOL IH SCH (07:23)
[2019-10-12 07:45] VITALS: BP 145/88
[2019-10-12] MEDS: DOCUSATE 100 MG/10 ML UDC GT SCH (08:23)
[2019-10-12] MEDS: FERROUS SULFATE 300 MG/5 ML UDC GT SCH (08:24)
[2019-10-12] MEDS: PANTOPRAZOLE 40 MG INJ VIAL IVP SCH (08:24)
[2019-10-12] MEDS: levETIRAcetam 100 MG/ML ORASYR GT SCH (08:24)
[2019-10-12] MEDS: LISINOPRIL 5 MG TAB GT SCH (08:25)
[2019-10-12] MEDS: FUROSEMIDE 20 MG/2 ML VIAL IVP SCH (08:25)
[2019-10-12] MEDS: MULTIVITAMIN 1 TAB GT SCH (08:27)
[2019-10-12] MEDS: ASCORBIC ACID 500 MG TAB GT SCH (08:27)
[2019-10-12] MEDS: DOXAZOSIN 2 MG TAB GT SCH (08:27)
--- NOTE | 2019-10-12 08:30 | NUR ---
GTUBE AUSCULTATED FOR PLACEMENT. 0 ML RESIDUAL NOTED. ORDERED MEDICATIONS GIVEN WITH 120 ML OF WATER. PATIENT TOLERATED IT. FLACC-0. SUCTION AND ORAL CARE PERFORMED. PATIENT RESISTANT TO ORAL CARE. FLACC-0. RESPIRATIONS EVEN AND UNLABORED. NO SOB OR DISTRESS NOTED. CONTACT AND SAFETY PRECAUTIONS IN PLACE, ALL LIGHT WITHIN REACH, WILL CONTINUE TO MONITOR PATIENT.
[2019-10-12] MEDS ORDERED: ACETAMINOPHEN 325 MG TAB GT PRN (08:51)
[2019-10-12] MEDS ORDERED: ACETAMINOPHEN 650 MG/20.3 ML UDC GT PRN (08:52)
[2019-10-12] MEDS ORDERED: DOCUSATE 100 MG/10 ML UDC GT PRN (08:53)
[2019-10-12] MEDS ORDERED: LEVOTHYROXINE 0.025 MG TAB GT SCH (09:00)
--- NOTE | 2019-10-12 09:05 | NUR ---
PATIENT'S SON, FARIBA, CALLED. UPDATED HIM ABOUT PATIENT'S STATUS AND POSSIBLE DISCHARGE TODAY. HE VERBALIZED UNDERSTANDING.
--- NOTE | 2019-10-12 09:40 | NUR ---
PATIENT HAS NOT HAD BM SINCE 10/08. INFORMED DR. LOCKETT. WAITING FOR NEW ORDERS.
--- NOTE | 2019-10-12 09:54 | NUR ---
ORDERED PRN DULCOLAX GIVEN. PATIENT TOLERATED IT. CONTACT AND SAFETY PRECAUTIONS IN PLACE, CALL LIGHT WITHIN REACH, WILL CONTINUE TO MONITOR PATIENT.
[2019-10-12] MEDS ORDERED: BISACODYL 10 MG SUPP RC SCH (10:00)
[2019-10-12] MEDS ORDERED: FURO-572 GT (11:35)
--- NOTE | 2019-10-12 11:50 | NUR ---
PATIENT HAD LARGE SOFT BLACK BM. PATIENT CLEANED UP AND CHANGED. PATIENT SUCTIONED, REPOSITIONED FOR COMFORT AND TO OFFLOAD PRESSURE AREAS. PICTURE TAKEN OF SACRAL AREA. SAFETY AND CONTACT PRECAUTIONS IN PLACE, CALL LIGHT WITHIN REACH. WILL CONTINUE TO MONITOR PATIENT. Addendum: 10/12/19 at 1256 by Jose Acosta RN SACRAL SITE OPTIFOAM CHANGED DUE TO SOILING. SITE CLEANED WITH SALINE, BETADINE APPLIED ORDERED. NEW OPTIFOAM REAPPLIED.
[2019-10-12 12:00] VITALS: BP 124/75
[2019-10-12] MEDS: GAUZE TP SCH (12:19)
[2019-10-12] MEDS: CHLORHEXADINE GLUC 2% CLOTH TP SCH (13:00)
--- NOTE | 2019-10-12 13:00 | NUR ---
ORDERED MEDICATION GIVEN. PATIENT SUCTIONED. PATIENT TOLERATED IT WELL. WILL CONTINUE TO MONITOR PATIENT.
[2019-10-12] MEDS: MUPIROCIN CA NASAL 2% 1GM TUBE NS SCH (13:01)
--- NOTE | 2019-10-12 13:25 | NUR ---
CALLED PATIENT'S SON FARIBA AND INFORMED HIM OF PATIENT'S IMPENDING DISCHARGE AT 1530. HE VERBALIZED UNDERSTANDING THAT PAT[place] [facility]
--- NOTE | 2019-10-12 14:50 | NUR ---
[place] [facility] TO SANA. SHE IS AWARE PATIENT COMING BACK TO ROOM 2B, PATIENT STILL ON MRSA TREATMENT, NEEDING 2 MORE DAYS. NO ANTIBIOTICS, IVS CAN BE REMOVED. SHE IS AWARE OF PATIENT'S SACRAL WOUND AND ORDERS FROM WOUND CARE NURSE. IVS REMOVED, IV CANNULA INTACT, BLEEDING NOTED. PATIENT SUCTIONED. PATIENT CANNOT SIGN PAPERWORK. LINK CATHETER STILL IN PLACE. PATIENT CHANGED INTO TRANSFER GOWNS AND SHEETS. WILL WAIT FOR [facility] TO COME AT 1530 TO TAKE [place] [facility]
--- NOTE | 2019-10-12 16:05 | NUR ---
PATIENT WHEELED OFF FLOOR WITH [facility] STAFF. PATIENT TOOK ALL HIS BELONGINGS WITH HIM.
== END 2019-10-12 16:00 | DRG 377 ==
LOC: MED 19:58 → EEVIPCON 22:05 → MTU 22:05
PROVIDERS: ADMIT General Practice; ATTEND General Practice
PROC: 5A1945Z Respiratory Ventilation, 24-96 Consecutive Hours (ICD-10-PCS; principal; 2019-10-08)
PROC: 30233N1 Transfusion of Nonautologous Red Blood Cells into Peripheral Vein, Percutaneous Approach (ICD-10-PCS; 2019-10-08)
PROC: 0W993ZZ Drainage of Right Pleural Cavity, Percutaneous Approach (ICD-10-PCS; 2019-10-10)
DX: K92.2 Gastrointestinal hemorrhage, unspecified (principal); N17.0 Acute kidney failure with tubular necrosis; E43 Unspecified severe protein-calorie malnutrition; J96.21 Acute and chronic respiratory failure with hypoxia; D61.818 Other pancytopenia; J90 Pleural effusion, not elsewhere classified; E87.0 Hyperosmolality and hypernatremia; L89.152 Pressure ulcer of sacral region, stage 2; Z68.29 Body mass index [BMI] 29.0-29.9, adult; E03.9 Hypothyroidism, unspecified; K21.9 Gastro-esophageal reflux disease without esophagitis; G40.909 Epilepsy, unspecified, not intractable, without status epilepticus; I10 Essential (primary) hypertension; R13.10 Dysphagia, unspecified; Z86.73 Personal history of transient ischemic attack (TIA), and cerebral infarction without residual deficits; Z93.0 Tracheostomy status; K59.00 Constipation, unspecified; E83.41 Hypermagnesemia; N40.0 Benign prostatic hyperplasia without lower urinary tract symptoms
CPT/HCPCS: 36415; 36430; 36600; 51702; 71045; 76604; 76942; 80048; 80053; 81001; 81003; 82150; 82272; 82607; 82728; 82746; 82803; 82945; 83540; 83605; 83615; 83735; 83880; 84100; 84157; 84439; 84443; 84484; 85025; 85045; 85610; 85730; 86886; 86900; 86901; 86920; 87040; 87070; 87075; 87081; 87086; 87205; 89051; 93005; 94002; 94003; 94640; 99285; C9113; J1940; J2001; J7030; P9016; Q0092; U0003-CS

== ENCOUNTER 2020-07-25 18:12 | Inpatient (IN) | payer OTHER, SELFPAY ==
[~2020-07-25] VITALS: Ht 167.6 cm; Wt 117.5 kg
[~2020-07-25 18:12] MED LIST changes: -ASCO500T45 GT; +ASCO500T95 GT; +LEVO0.0211 GT; +LEVO750T2 IV; +LISI2.5T12 GT; -LISI2.5T5 GT; +MERO1VIA15 IV; -MULT-153 GT; +MULT-2112 GT; -PIPE1PDS26 IV; +ROC2I IM/IV; -SYN.05 GT; -TIM.5OS OP
[2020-07-25] MEDS ORDERED: ACETAMINOPHEN 650 MG SUPP RC ONE (18:20)
[2020-07-25] MEDS ORDERED: VANCOMYCIN 1,000 MG in DEXTROSE 5% 250 ML IV ONE (18:20)
[2020-07-25] MEDS ORDERED: PIPERACILLIN/TAZOBACTAM 4.5 GM in DEXTROSE 5% 100 ML IV ONE (18:20)
[2020-07-25] MEDS ORDERED: NACL 0.9% 1,000 ML IV ONE ×2 (18:20→19:20)
[2020-07-25 18:39] VITALS: BP 85/52
[2020-07-25 18:47] LABS: APPEARANCE,URINE CLEAR (CLEAR); BILIRUBIN,URINE NEGATIVE (NEGATIVE); BLOOD, URINE 1+ (NEGATIVE); COLOR,URINE YELLOW (YELLOW); LEUKOCYTE ESTERASE ,URINE 2+ (NEGATIVE); NITRITE, URINE NEGATIVE (NEGATIVE); PH,URINE 5.5 (5.0-9.0); UGLUCOSE NEGATIVE (NEGATIVE)
[2020-07-25] MEDS ORDERED: PIPERACILLIN/TAZOBACTAM 4.5 GM VIAL IV ONE (18:47)
[2020-07-25 18:54] LABS: COARSE GRANULAR CASTS,URINE 0-10 /LPF (None Seen); WBC,URINE 16-25 (MOD) /HPF (0-5)
[2020-07-25 18:55] LABS: CALCIUM OXALATE CRYSTALS,UR 0-10 /HPF (None Seen)
[2020-07-25 19:05] LABS: HEMATOCRIT 28.5 % (36-52); HEMOGLOBIN 9.1 g/dL (12.0-18.0); MEAN CORPUSCULAR HEMOGLOBIN 32 pg (27-31); MEAN CORPUSCULAR HGB CONC 32 g/dL (33-37); MEAN CORPUSCULAR VOLUME 98.6 fL (80-94); PLATELET COUNT (AUTO) 98 K/uL (140-450); RED BLOOD CELL COUNT(AUTO) 2.89 MIL/uL (4.20-6.10); RED CELL DISTRIBUTION WIDTH 17.7 % (11.6-13.7); WHITE BLOOD COUNT (AUTO) 11.1 K/uL (4.8-10.8)
[2020-07-25 19:34] LABS: PROTHROMBIN TIME 12.1 secs (10.8-13.4)
[2020-07-25 19:35] LABS: ALBUMIN 2.2 g/dL (3.4-5.0); ANION GAP 14.3 (8-16); CARBON DIOXIDE 24.6 mmol/L (21-32); CREATININE 2.4 mg/dL (0.6-1.3); TOTAL BILIRUBIN 0.9 mg/dL (0.0-1.0)
[2020-07-25 19:44] LABS: POTASSIUM 6.9 mmol/L (3.5-5.1)
[2020-07-25 19:48] LABS: CREATINE KINASE MB 0.5 ng/mL (0-3.6)
[2020-07-25 19:55] LABS: EOSINOPHILS % (MANUAL) 1 % (0-4); LYMPHOCYTES % (MANUAL) 5 % (20-46); MONOCYTES % (MANUAL) 6 % (5-12)
[2020-07-25] MEDS ORDERED: SODIUM BICARBONATE 8.4% PFS 50 MEQ/50 ML SYR IVP ONE (19:55)
[2020-07-25] MEDS ORDERED: DEXTROSE 50% 50 ML SYR IVP ONE (19:55)
[2020-07-25] MEDS ORDERED: INSULIN REGULAR, HUMAN 100 UNIT/ML VIAL IVP ONE (19:55)
[2020-07-25] MEDS ORDERED: ALBUTEROL 0.083% 2.5 MG/3 ML NEBU INH ONE (19:55)
[2020-07-25] MEDS ORDERED: SODIUM POLYSTYRENE 15 GM/60 ML UDBTL PO ONE (20:00)
[2020-07-25] MEDS ORDERED: VANCOMYCIN 1,000 MG VIAL ONE (20:08)
[2020-07-25] MEDS ORDERED: SODIUM POLYSTYRENE 15 GM/60 ML UDBTL PR SCH (21:05)
[2020-07-25] MEDS ORDERED: CALCIUM CHLORIDE 10% 100 MG/ML SYR IVP SCH (21:05)
[2020-07-25 22:15] LABS: ANION GAP 16.5 (8-16); CARBON DIOXIDE 23.3 mmol/L (21-32); CREATININE 2.3 mg/dL (0.6-1.3)
[2020-07-25 22:20] VITALS: BP 89/51
[2020-07-25 22:27] LABS: POTASSIUM 6.8 mmol/L (3.5-5.1)
[2020-07-25] MEDS ORDERED: SODIUM BICARBONATE 8.4% PFS 50 MEQ/50 ML SYR IVP SCH (22:54)
[2020-07-25] MEDS ORDERED: INSULIN REGULAR, HUMAN 100 UNIT/ML VIAL IVP SCH (22:55)
[2020-07-25] MEDS ORDERED: DEXTROSE 50% 50 ML SYR IVP SCH (22:55)
[2020-07-25] MEDS ORDERED: SODIUM POLYSTYRENE 15 GM/60 ML UDBTL PO SCH (23:20)
[2020-07-25] MEDS ORDERED: LACT-103 GT/PO (23:40)
[2020-07-26] VITALS (7 sets, daily range): BP systolic 95–120; BP diastolic 50–70
[2020-07-26 00:48] LABS: ANION GAP 15.2 (8-16); CARBON DIOXIDE 24.1 mmol/L (21-32); CREATININE 2.4 mg/dL (0.6-1.3); POTASSIUM 5.3 mmol/L (3.5-5.1)
[2020-07-26] MEDS ORDERED: SODIUM POLYSTYRENE 15 GM/60 ML UDBTL GT SCH (01:05)
[2020-07-26] MEDS ORDERED: PIPERACILLIN/TAZOBACTAM 2.25 GM VIAL IV ONE (05:25)
[2020-07-26] MEDS: PIPERACILLIN/TAZOBACTAM 2.25 GM in DEXTROSE 5% 50 ML IV SCH ×3 (05:29→20:18)
[2020-07-26] MEDS: NACL 0.9% 1,000 ML IV SCH ×2 (09:25→19:25)
[2020-07-26] MEDS ORDERED: NACL 0.9% 500 ML IV SCH (09:50)
[2020-07-26] MEDS ORDERED: SODIUM ZIRCONIUM CYCLOSILICATE 10 GM POWD.PACK PO SCH (10:00)
[2020-07-26] MEDS ORDERED: ZOLPIDEM 5 MG TAB GT PRN (10:15)
[2020-07-26] MEDS ORDERED: MORPHINE SULFATE 2 MG/ML SYR IVP PRN (10:15)
[2020-07-26] MEDS ORDERED: LORazepam 2 MG/ML VIAL IM/IVP PRN (10:15)
[2020-07-26] MEDS ORDERED: LORAZEPAM 2 MG IV PRN (10:15)
[2020-07-26] MEDS ORDERED: ACETAMINOPHEN 325 MG TAB PO PRN (10:15)
[2020-07-26] MEDS ORDERED: ONDANSETRON 4 MG/2 ML VIAL IM/IVP PRN (10:15)
[2020-07-26] MEDS ORDERED: HYDROcodone/APAP 5/325 MG 1 TAB TAB GT PRN (10:15)
[2020-07-26] MEDS ORDERED: VANCOMYCIN PER PHARMACY MC PRN (10:15)
[2020-07-26] MEDS ORDERED: DOCUSATE SODIUM 100 MG GELCAP PO PRN (10:15)
[2020-07-26 10:50] LABS: HEMATOCRIT 24.1 % (36-52); HEMOGLOBIN 7.7 g/dL (12.0-18.0); MEAN CORPUSCULAR HEMOGLOBIN 32 pg (27-31); MEAN CORPUSCULAR HGB CONC 32 g/dL (33-37); MEAN CORPUSCULAR VOLUME 98.8 fL (80-94); PLATELET COUNT (AUTO) 74 K/uL (140-450); RED BLOOD CELL COUNT(AUTO) 2.44 MIL/uL (4.20-6.10); RED CELL DISTRIBUTION WIDTH 17.9 % (11.6-13.7); WHITE BLOOD COUNT (AUTO) 12.2 K/uL (4.8-10.8)
[2020-07-26 11:05] LABS: MAGNESIUM 2.5 mg/dL (1.8-2.4); PHOSPHORUS 6.8 mg/dL (2.5-4.9); THYROID STIMULATING HORMONE 0.61 uIU/mL (0.34-3.74)
[2020-07-26 11:55] LABS: EOSINOPHILS % (MANUAL) 1 % (0-4); MONOCYTES % (MANUAL) 10 % (5-12)
[2020-07-26 11:56] LABS: LYMPHOCYTES % (MANUAL) 7 % (20-46)
[2020-07-26] MEDS ORDERED: PIPERACILLIN/TAZOBACTAM 2.25 GM in DEXTROSE 5% 50 ML IV SCH (13:00)
[2020-07-26 15:55] LABS: BARBITURATE, URINE NEGATIVE ng/ml (NEG <=200); BENZODIAZEPINE, URINE NEGATIVE ng/mL (NEG <=200); CANNABINOID, URINE NEGATIVE ng/mL (NEG <=50); COCAINE, URINE NEGATIVE ng/mL (NEG <=300); OPIATE, URINE NEGATIVE ng/mL (NEG <=2000); PHENCYCLIDINE SCREEN,URINE NEGATIVE ng/mL (NEG <=25)
[2020-07-26 15:57] LABS: URINE TOTAL PROTEIN 128.1 mg/dL (0-12)
[2020-07-26] MEDS ORDERED: VANCOMYCIN HCL 1.25 GM in DEXTROSE 5% 250 ML IV SCH (17:00)
[2020-07-26] MEDS: CALCIUM ACETATE 667 MG TAB PO SCH (17:13)
[2020-07-26] MEDS: levETIRAcetam 100 MG/ML ORASYR GT SCH (20:16)
[2020-07-26] MEDS: ASCORBIC ACID 500 MG/5 ML ORASYR GT SCH (20:17)
[2020-07-26] MEDS: DOCUSATE 100 MG/10 ML UDC GT SCH (20:17)
[2020-07-26] MEDS: ATORVASTATIN 20 MG TAB GT SCH (20:17)
[2020-07-26] MEDS: FERROUS SULFATE 300 MG/5 ML UDC GT SCH (20:17)
[2020-07-26] MEDS: SENNA 8.6 MG TAB GT SCH (20:18)
[2020-07-26] MEDS: CYANOCOBALAMIN 100 MCG TAB GT SCH (20:21)
[2020-07-26] MEDS ORDERED: NON-FORMULARY ITEM (Ferrous Sulfate 330 MG) PO SCH (21:00)
[2020-07-27] VITALS (7 sets, daily range): BP systolic 73–145; BP diastolic 46–61
[2020-07-27] MEDS: PIPERACILLIN/TAZOBACTAM 2.25 GM in DEXTROSE 5% 50 ML IV SCH ×3 (04:34→20:13)
[2020-07-27] MEDS: NACL 0.9% 1,000 ML IV SCH ×2 (05:25→16:11)
[2020-07-27 05:51] LABS: BASOPHILS % (AUTO) 0.4 % (0.0-2.0); EOSINOPHILS # (AUTO) 0.2 K/uL (0-0.4); EOSINOPHILS % (AUTO) 1.6 % (0.0-4.0); HEMATOCRIT 20.1 % (36-52); LYMPHOCYTES # (AUTO) 0.7 K/uL (2.0-11.5); LYMPHOCYTES % (AUTO) 5.4 % (20.5-51.1); MEAN CORPUSCULAR HEMOGLOBIN 32 pg (27-31); MEAN CORPUSCULAR HGB CONC 33 g/dL (33-37); MEAN CORPUSCULAR VOLUME 96.8 fL (80-94); MONOCYTES # (AUTO) 1.4 K/uL (0.8-1.0); MONOCYTES % (AUTO) 11.8 % (1.7-9.3); NEUTROPHILS # (AUTO) 9.9 K/uL (1.8-7.7); NEUTROPHILS % (AUTO) 80.8 % (42.2-75.2); PLATELET COUNT (AUTO) 72 K/uL (140-450); RED BLOOD CELL COUNT(AUTO) 2.08 MIL/uL (4.20-6.10); RED CELL DISTRIBUTION WIDTH 17.6 % (11.6-13.7); WHITE BLOOD COUNT (AUTO) 12.3 K/uL (4.8-10.8)
[2020-07-27 06:18] LABS: ANION GAP 12.9 (8-16); CARBON DIOXIDE 24.8 mmol/L (21-32); CREATININE 2.5 mg/dL (0.6-1.3); POTASSIUM 3.7 mmol/L (3.5-5.1)
[2020-07-27 06:30] LABS: CHOL/HDL RATIO 10.2 (1-4.5)
[2020-07-27 07:45] LABS: HEMOGLOBIN 6.6 g/dL (12.0-18.0)
[2020-07-27] MEDS: ASPIRIN 81 MG TAB.CHEW GT SCH (08:39)
[2020-07-27] MEDS: CALCIUM ACETATE 667 MG TAB PO SCH ×3 (08:39→16:12)
[2020-07-27] MEDS: DOCUSATE 100 MG/10 ML UDC GT SCH ×2 (08:40→20:12)
[2020-07-27] MEDS: LACTULOSE 20 GM/30 ML UDC GT SCH (08:40)
[2020-07-27] MEDS: levETIRAcetam 100 MG/ML ORASYR GT SCH ×2 (08:40→20:13)
[2020-07-27] MEDS: FUROSEMIDE 40 MG/5 ML ORAL SOL UDC GT SCH (08:40)
[2020-07-27] MEDS: FERROUS SULFATE 300 MG/5 ML UDC GT SCH ×2 (08:40→20:12)
[2020-07-27] MEDS: LEVOTHYROXINE 0.05 MG TAB GT SCH (08:41)
[2020-07-27] MEDS: ASCORBIC ACID 500 MG/5 ML ORASYR GT SCH ×2 (08:41→20:12)
[2020-07-27] MEDS: LANSOPRAZOLE 30 MG CAPDR GT SCH (08:41)
[2020-07-27] MEDS: lisinopriL 5 MG TAB GT SCH (08:46)
[2020-07-27] MEDS: DOXAZOSIN 2 MG TAB GT SCH (08:47)
[2020-07-27] MEDS ORDERED: NON-FORMULARY ITEM (Lactulose 30 ML) GT/PO SCH (09:00)
[2020-07-27] MEDS ORDERED: NON-FORMULARY ITEM (Multivitamin (Multi-Vitamins) 1 TAB) GT SCH (09:00)
[2020-07-27] MEDS ORDERED: MULTIVITAMIN 1 TAB GT SCH (09:00)
[2020-07-27] MEDS ORDERED: MULTIVITAMIN 5 ML ORASYR GT SCH (09:00)
[2020-07-27] MEDS ORDERED: NON-FORMULARY ITEM (Lansoprazole* (Prevacid 24Hr*) 30 MG) GT SCH (09:00)
[2020-07-27 11:14] LABS: T4 (THYROXINE) 4.4 ug/dL (4.5 - 12.0)
[2020-07-27] MEDS ORDERED: ALBUMIN HUMAN 25% 50 ML IV SCH (13:35)
[2020-07-27 19:44] LABS: BASOPHILS % (AUTO) 0.2 % (0.0-2.0); EOSINOPHILS # (AUTO) 0.1 K/uL (0-0.4); EOSINOPHILS % (AUTO) 0.9 % (0.0-4.0); HEMATOCRIT 23.3 % (36-52); HEMOGLOBIN 7.8 g/dL (12.0-18.0); LYMPHOCYTES # (AUTO) 0.6 K/uL (2.0-11.5); LYMPHOCYTES % (AUTO) 5.9 % (20.5-51.1); MEAN CORPUSCULAR HEMOGLOBIN 31 pg (27-31); MEAN CORPUSCULAR HGB CONC 33 g/dL (33-37); MEAN CORPUSCULAR VOLUME 93.5 fL (80-94); MONOCYTES # (AUTO) 1.2 K/uL (0.8-1.0); NEUTROPHILS # (AUTO) 8.3 K/uL (1.8-7.7); PLATELET COUNT (AUTO) 57 K/uL (140-450); RED CELL DISTRIBUTION WIDTH 19.5 % (11.6-13.7); WHITE BLOOD COUNT (AUTO) 10.3 K/uL (4.8-10.8)
[2020-07-27] MEDS: CYANOCOBALAMIN 100 MCG TAB GT SCH (20:12)
[2020-07-27] MEDS: ATORVASTATIN 20 MG TAB GT SCH (20:12)
[2020-07-27] MEDS: SENNA 8.6 MG TAB GT SCH (20:13)
[2020-07-27 20:53] LABS: ANION GAP 22.9 (8-16); CARBON DIOXIDE 18.9 mmol/L (21-32); CREATININE 2.7 mg/dL (0.6-1.3); POTASSIUM 3.8 mmol/L (3.5-5.1)
[2020-07-28] VITALS: BP 113/60
[2020-07-28 04:00] VITALS: BP 110/60
[2020-07-28] MEDS: PIPERACILLIN/TAZOBACTAM 2.25 GM in DEXTROSE 5% 50 ML IV SCH ×3 (04:20→20:34)
[2020-07-28 07:05] LABS: ANION GAP 13.8 (8-16); CARBON DIOXIDE 23.5 mmol/L (21-32); CREATININE 2.5 mg/dL (0.6-1.3); POTASSIUM 3.3 mmol/L (3.5-5.1)
[2020-07-28 08:00] VITALS: BP 99/57
[2020-07-28] MEDS: DOXAZOSIN 2 MG TAB GT SCH (09:00)
[2020-07-28] MEDS ORDERED: VANCOMYCIN 750 MG in DEXTROSE 5% 250 ML IV SCH (09:00)
[2020-07-28] MEDS ORDERED: MULTIVITAMIN 1 TAB PO SCH (09:00)
[2020-07-28] MEDS: lisinopriL 5 MG TAB GT SCH (09:00)
[2020-07-28] MEDS: NACL 0.9% 1,000 ML IV SCH (09:19)
[2020-07-28] MEDS: levETIRAcetam 100 MG/ML ORASYR GT SCH ×2 (10:23→20:35)
[2020-07-28] MEDS: LANSOPRAZOLE 30 MG CAPDR GT SCH (10:24)
[2020-07-28] MEDS: FUROSEMIDE 40 MG/5 ML ORAL SOL UDC GT SCH (10:24)
[2020-07-28] MEDS: CALCIUM ACETATE 667 MG TAB PO SCH ×3 (10:24→18:10)
[2020-07-28] MEDS: FERROUS SULFATE 300 MG/5 ML UDC GT SCH ×2 (10:24→20:34)
[2020-07-28] MEDS: DOCUSATE 100 MG/10 ML UDC GT SCH ×2 (10:25→20:34)
[2020-07-28] MEDS: LACTULOSE 20 GM/30 ML UDC GT SCH (10:25)
[2020-07-28] MEDS: LEVOTHYROXINE 0.05 MG TAB GT SCH (10:25)
[2020-07-28] MEDS: ASPIRIN 81 MG TAB.CHEW GT SCH (10:25)
[2020-07-28] MEDS: MULTIVITAMIN 1 TAB GT SCH (10:25)
[2020-07-28] MEDS: ASCORBIC ACID 500 MG/5 ML ORASYR GT SCH ×2 (10:25→20:34)
[2020-07-28 12:00] VITALS: BP 117/63
[2020-07-28 16:00] VITALS: BP 121/63
[2020-07-28 20:00] VITALS: BP_SYST 92; BP_SYST 97; BP_DIAS 60; BP_DIAS 61
[2020-07-28] MEDS: CYANOCOBALAMIN 100 MCG TAB GT SCH (20:34)
[2020-07-28] MEDS: SENNA 8.6 MG TAB GT SCH (20:35)
[2020-07-28] MEDS: ATORVASTATIN 20 MG TAB GT SCH (20:35)
[2020-07-29] VITALS: BP 93/54
[2020-07-29] MEDS: NACL 0.9% 1,000 ML IV SCH (01:59)
[2020-07-29 04:00] VITALS: BP 115/74
[2020-07-29] MEDS: PIPERACILLIN/TAZOBACTAM 2.25 GM in DEXTROSE 5% 50 ML IV SCH ×2 (04:04→13:38)
[2020-07-29 05:57] LABS: ANION GAP 15.1 (8-16); CARBON DIOXIDE 23.9 mmol/L (21-32); CREATININE 2.4 mg/dL (0.6-1.3)
[2020-07-29 08:00] VITALS: BP_SYST 101; BP_SYST 121; BP_DIAS 55; BP_DIAS 57
[2020-07-29] MEDS ORDERED: POTASSIUM CHLORIDE 40 MEQ, LIDOCAINE MPF 1% 25 MG in NACL 0.9% 250 ML IV SCH (08:30)
[2020-07-29] MEDS: lisinopriL 5 MG TAB GT SCH (09:00)
[2020-07-29] MEDS: DOCUSATE 100 MG/10 ML UDC GT SCH (09:33)
[2020-07-29] MEDS: LACTULOSE 20 GM/30 ML UDC GT SCH (09:33)
[2020-07-29] MEDS: FUROSEMIDE 40 MG/5 ML ORAL SOL UDC GT SCH (09:34)
[2020-07-29] MEDS: FERROUS SULFATE 300 MG/5 ML UDC GT SCH (09:34)
[2020-07-29] MEDS: ASCORBIC ACID 500 MG/5 ML ORASYR GT SCH (09:34)
[2020-07-29] MEDS: ASPIRIN 81 MG TAB.CHEW GT SCH (09:35)
[2020-07-29] MEDS: levETIRAcetam 100 MG/ML ORASYR GT SCH (09:35)
[2020-07-29] MEDS: DOXAZOSIN 2 MG TAB GT SCH (09:35)
[2020-07-29] MEDS: CALCIUM ACETATE 667 MG TAB PO SCH ×3 (09:36→18:02)
[2020-07-29] MEDS: LANSOPRAZOLE 30 MG CAPDR GT SCH (09:36)
[2020-07-29] MEDS: MULTIVITAMIN 1 TAB GT SCH (09:36)
[2020-07-29] MEDS: LEVOTHYROXINE 0.05 MG TAB GT SCH (09:36)
[2020-07-29] MEDS ORDERED: VANCOMYCIN HCL 1.25 GM in DEXTROSE 5% 250 ML IV SCH (10:00)
[2020-07-29] MEDS ORDERED: NACL 0.9% 500 ML IV SCH ×2 (10:20→15:11)
[2020-07-29] MEDS ORDERED: PIPE1SOL IV (10:26)
[2020-07-29] MEDS ORDERED: VANC1PDS13 IV (10:26)
[2020-07-29 11:21] LABS: BASOPHILS % (AUTO) 0.4 % (0.0-2.0); EOSINOPHILS # (AUTO) 0.1 K/uL (0-0.4); EOSINOPHILS % (AUTO) 0.7 % (0.0-4.0); HEMATOCRIT 22.7 % (36-52); HEMOGLOBIN 7.2 g/dL (12.0-18.0); LYMPHOCYTES # (AUTO) 0.8 K/uL (2.0-11.5); LYMPHOCYTES % (AUTO) 6.3 % (20.5-51.1); MEAN CORPUSCULAR HEMOGLOBIN 31 pg (27-31); MEAN CORPUSCULAR HGB CONC 32 g/dL (33-37); MEAN CORPUSCULAR VOLUME 95.4 fL (80-94); MONOCYTES # (AUTO) 1.4 K/uL (0.8-1.0); MONOCYTES % (AUTO) 11.6 % (1.7-9.3); NEUTROPHILS # (AUTO) 9.7 K/uL (1.8-7.7); PLATELET COUNT (AUTO) 60 K/uL (140-450); RED BLOOD CELL COUNT(AUTO) 2.37 MIL/uL (4.20-6.10); RED CELL DISTRIBUTION WIDTH 19.5 % (11.6-13.7)
[2020-07-29 12:00] VITALS: BP_SYST 138; BP_SYST 98; BP_DIAS 54; BP_DIAS 67
[2020-07-29 16:00] VITALS: BP 137/67
[2020-07-29 17:10] VITALS: BP 137/67
== END 2020-07-29 18:40 | DRG 871 ==
LOC: MED 18:12 → MTU 20:55
PROC: 5A1945Z Respiratory Ventilation, 24-96 Consecutive Hours (ICD-10-PCS; principal; 2020-07-25)
PROC: 30233N1 Transfusion of Nonautologous Red Blood Cells into Peripheral Vein, Percutaneous Approach (ICD-10-PCS; 2020-07-27)
DX: A41.9 Sepsis, unspecified organism (principal); J69.0 Pneumonitis due to inhalation of food and vomit; N17.0 Acute kidney failure with tubular necrosis; J96.21 Acute and chronic respiratory failure with hypoxia; R65.21 Severe sepsis with septic shock; E87.1 Hypo-osmolality and hyponatremia; E87.2 Acidosis; N39.0 Urinary tract infection, site not specified; Z99.11 Dependence on respirator [ventilator] status; E53.0 Riboflavin deficiency; L03.116 Cellulitis of left lower limb; L03.115 Cellulitis of right lower limb; D63.8 Anemia in other chronic diseases classified elsewhere; E03.9 Hypothyroidism, unspecified; E87.5 Hyperkalemia; I12.9 Hypertensive chronic kidney disease with stage 1 through stage 4 chronic kidney disease, or unspecified chronic kidney disease; R13.11 Dysphagia, oral phase; G40.909 Epilepsy, unspecified, not intractable, without status epilepticus; Z66 Do not resuscitate; K21.9 Gastro-esophageal reflux disease without esophagitis; Z20.822 Contact with and (suspected) exposure to COVID-19; N40.0 Benign prostatic hyperplasia without lower urinary tract symptoms; E86.0 Dehydration; R13.10 Dysphagia, unspecified; E78.5 Hyperlipidemia, unspecified; E61.1 Iron deficiency; N18.31 Chronic kidney disease, stage 3a; R13.19 Other dysphagia; K59.09 Other constipation; E87.6 Hypokalemia; Z86.73 Personal history of transient ischemic attack (TIA), and cerebral infarction without residual deficits; Z93.0 Tracheostomy status; Z93.1 Gastrostomy status
CPT/HCPCS: 36415; 36600; 71045; 80048; 80053; 80202; 80305; 81001; 82140; 82272; 82550; 82553; 82570; 82803; 83036; 83605; 83690; 83735; 83880; 84100; 84134; 84300; 84436; 84443; 84484; 85025; 85384; 85610; 85730; 86886; 86900; 86901; 86920; 87040; 87081; 87086; 93005; 94002; 94003; 96361; 96365; 96367; 99285; J1815; J2001; J2543; J3370; J3480; J7030; J7060; P9016; P9046